=== PATIENT | female | born 1960 | race Caucasian/White ===

== ENCOUNTER → 2018-05-15 08:47 | Outpatient (CLI) | payer MEDICARE, SELFPAY ==
--- NOTE | 2018-05-15 08:58 | XR_ITS ---
XR chest 2V HISTORY: ITS.REASON: COPD WITH ACUTE LOWER RESPIRATORY INFECTION ORDERING PHYSICIAN: Yuki Wolf PATIENT AGE: 58 years COMPARISON: 03/28/2009 FINDINGS: The cardiomediastinal silhouette and pulmonary vascularity are within normal limits. The lungs are clear without infiltrates, suspicious nodules, or pleural effusions. Wedge compression changes are present involving T11 with endplate osteophytes. This was not present on previous study but has a chronic appearance. There is no fracture of the right humeral neck. IMPRESSION: No acute finding. T11 compression change age-indeterminate possibly old. Right humeral neck fracture
== END ==
PROVIDERS: PCP Nurse Practitioner Family; Referring Provider Nurse Practitioner Family; Visit Provider Nurse Practitioner Family
DX: J44.0 Chronic obstructive pulmonary disease with (acute) lower respiratory infection (principal)
CPT/HCPCS: 71046

== ENCOUNTER → 2018-05-24 13:39 | Outpatient (CLI) | payer MEDICARE, SELFPAY ==
[2018-05-24 14:35] VITALS: PULSE 100; PULSE 105
== END ==
PROVIDERS: Family Provider Family Medicine; PCP Nurse Practitioner Family; Visit Provider Nurse Practitioner Family
DX: J44.0 Chronic obstructive pulmonary disease with (acute) lower respiratory infection (principal)
CPT/HCPCS: 94060; 94640

== ENCOUNTER → 2018-06-23 13:27 | Outpatient (CLI) | payer MEDICARE, SELFPAY ==
--- NOTE | 2018-06-23 13:36 | CT_ITS ---
CT chest wo con HISTORY: ITS.REASON: SEVERE COPD,CHRONIC TYPE 1 RESPIRATORY FAILURE,TOBACCO USE ORDERING PHYSICIAN: Yuki Wolf PATIENT AGE: 58 years COMPARISON: None Technique: Axial images obtained with sagittal and coronal reformats. All CT scans at the facility use one or more dose reduction, viz: automated exposure control, ma/kV adjustment per patient size (including targeted exams where dose is matched to indication, i.e. head), or iterative reconstruction technique. FINDINGS: No mediastinal or hilar mass or adenopathy. There is a mildly prominent node in the left axilla 2.3 cm. Normal heart size. No evidence of pericardial effusion. 3 mm noncalcified nodule right upper lobe anterolaterally. 3 mm noncalcified nodule superior segment right lower lobe. There is mild diffuse bronchial thickening with hyperattenuation of the lungs consistent with obstructive chronic bronchitis. No suspicious nodules. No infiltrates or effusions. Upper abdominal images show diffuse fatty liver and left renal cyst measuring up to 5.6 cm. Multiple soft tissue nodular densities are present in the left upper quadrant posteriorly superior to the left kidney and in the expected location of the spleen. Has the patient had a prior splenectomy or splenic surgery. Please may represent multiple splenule. Please correlate with patient's surgical history. If there has not been prior spleen surgery then, a liver spleen scan may confirm that this is splenic tissue and not adenopathy. There is moderate wedging involving the T3 and T11 vertebral bodies which appear old. There is kyphosis at the T3 and T11 region. IMPRESSION: 1. COPD. 2. There are at least 2 small right-sided pulmonary nodules measuring 3 mm each. Twelve-month follow-up recommended 3. Multiple soft tissue densities in the left upper quadrant posteriorly which may represent splenules. Please correlate with patient's surgical history. Liver spleen scan with SPECT imaging may confirm the presence of splenic tissue as opposed to adenopathy 4. 2.3 cm left axillary lymph node
== END ==
PROVIDERS: Family Provider Family Medicine; PCP Nurse Practitioner Family; Visit Provider Nurse Practitioner Family
DX: J44.9 Chronic obstructive pulmonary disease, unspecified (principal); J96.11 Chronic respiratory failure with hypoxia; Z72.0 Tobacco use
CPT/HCPCS: 71250

== ENCOUNTER → 2018-07-21 08:47 | Outpatient (CLI) | payer MEDICARE, SELFPAY ==
--- NOTE | 2018-07-21 08:51 | US_ITS ---
US extremity LT limited HISTORY: ITS.REASON: AXILARY LYMPHADENOPATHY ORDERING PHYSICIAN: Yuki Wolf PATIENT AGE: 58 years COMPARISON: 06/23/2018 FINDINGS: A mildly enlarged lymph node in left axilla at 3.9 x 1.5 cm with a mostly fatty central hilum. There is some echogenicity of the cortex of the lymph node inferiorly at 9 mm another smaller node is present as well measuring 2 cm. No fluid collections apparent. IMPRESSION: Mild left axillary adenopathy
--- NOTE | 2018-07-21 09:02 | MM_ITS ---
MM Dig screening mamm BI w/CAD CAD Screening COMPARISON: Digital mammograms with CAD 03/13/2016 INDICATION: There is a history of breast cancer patient's 2 grandmothers TECHNIQUE: Standard CC and MLO images were obtained. R2 CAD reviewed. FINDINGS: The breasts are composed primarily of fat with minimal scattered fiber glandular densities throughout each breast. There are stable tiny benign-appearing nodular densities in each breast. There is no suspicious lesion and there are no suspicious microcalcifications. IMPRESSION: Stable exam no suspicious lesion seen BI-RADS Category: 2 Benign Finding(s) RECOMMENDED FOLLOW-UP: 1YR - 1 YEAR FOLLOW-UP (A letter has been sent to the patient regarding results of the study.)
== END ==
PROVIDERS: Family Provider Family Medicine; PCP Nurse Practitioner Family; Visit Provider Nurse Practitioner Family
DX: Z12.31 Encounter for screening mammogram for malignant neoplasm of breast (principal); R59.0 Localized enlarged lymph nodes
CPT/HCPCS: 76882; 77067

== ENCOUNTER → 2021-10-28 07:30 | Outpatient (CLI) | payer MEDICARE, SELFPAY ==
--- NOTE | 2021-10-28 07:30 | CT_ITS ---
PROCEDURE: CT LUNG SCREENING CLINICAL INDICATION: lung cancer screening COMPARISON: CT CHESTWO CT chest wo con from 06/23/2018 TECHNIQUE: The exam was performed on a GE Light Speed [address] scanner using 2.90 mGy CTDI. A low dose helical CT CHEST was performed on a multi-detector scanner. All CT scans at the facility use one or more dose reduction, viz: automated exposure control, ma/kV adjustment per patient size (including targeted exams where dose is matched to indication, i.e. head), or iterative reconstruction technique. The LDCT was performed in a facility that meets the criteria for the screening program. Data regarding this exam was submitted to ACR which is an approved registry. The order for this exam indicates that it came as a result of a lung cancer screening counseling shard decision-making visit that included all the elements required of such a visit including smoking cessation. The radiologist interpreting this exam meets the [facility] criteria for the LDCT lung cancer screening program. The exam is reported using the Lung-RADS classification scale and reported to the ACR registry. NOTE: This study was performed for the specific purposes of lung cancer screening and is not an alternative to diagnostic chest CT. RADIATION DOSE: CTDI vol(CT dose Index-volume) = 2.90mG DLP (Dose Length Product) = 84.91 mGcm FINDINGS: COPD changes stable small pulmonary nodules as previously described. No new suspicious nodules apparent. Scattered areas of scarring. OTHER FINDINGS: There is bilateral axillary adenopathy. The largest node is on the left measuring 3.3 x 2.2 cm. The nodes have increased in size compared to the previous exam. Numerous lobular soft tissue densities are present in the left upper quadrant as previously described possibly due to splenules. Wedge compression changes T11 and T3 unchanged. Sclerotic focus neck of the left glenoid IMPRESSION: Lung-RADS Category 2 Benign Appearance or Behavior Follow-up: Continue annual screening with LDCT in 12 months Worsening bilateral axillary adenopathy left greater than right. Numerous rounded opacities in the left upper quadrant possibly due to splenule is versus adenopathy. Dictated by: Oliverio Chaves MD 11/11/2021 10:30 Oliverio Chaves MD in [place] 11/11/2021 10:30
[2021-10-28 09:30] VITALS: PULSE 86; PULSE 90
== END ==
PROVIDERS: PCP Nurse Practitioner Family; Visit Provider Internal Medicine Pulmonary Disease
DX: Z87.891 Personal history of nicotine dependence (principal); Z12.2 Encounter for screening for malignant neoplasm of respiratory organs; R06.09 Other forms of dyspnea
CPT/HCPCS: 71271; 94060; 94618; 94640; 94727; 94729

== ENCOUNTER → 2022-01-07 13:42 | Outpatient (CLI) | payer MEDICARE, SELFPAY ==
--- NOTE | 2022-01-07 13:51 | US_ITS ---
PROCEDURE INFORMATION: Exam: US Left Breast, Complete US Right Breast, Complete MG Bilateral Diagnostic Breast Tomosynthesis Exam date and time: 01/07/2022 1:56 PM Age: 61 years old Clinical indication: Due for annual screening mammogram. Axillary Lymphadenopathy noted on recent CT chest TECHNIQUE: Imaging protocol: Complete ultrasound of all four quadrants of the Left breast and the retroareolar regions, including ultrasound of the axilla when performed. Complete ultrasound of all four quadrants of the Right breast and the retroareolar regions, including ultrasound of the axilla when performed. Bilateral Diagnostic tomosynthesis and 2D mammography including computer-aided detection (CAD) when performed. Unilateral or bilateral exam. COMPARISON: MG [facility] MM Dig screening mamm BI w/CAD 07/21/2018 9:23 AM FINDINGS: MAMMOGRAPHY: There are scattered areas of fibroglandular density. No new mass, architectural distortion, or suspicious calcifications have developed to suggest malignancy. Partially visualized dense right axillary lymph node measures 3 cm ULTRASOUND: Complete breast ultrasound was performed including all 4 quadrants, retroareolar breast and axilla bilaterally No suspicious solid or cystic mass is present. No benign-appearing solid or cystic mass is present. No architectural distortion or shadowing is present. Left axillary lymphadenopathy is present, with prominent cortex thickening and diminutive fatty jenna, the largest left axillary lymph node measuring 4.8 x 2 point 8 by 1.7 cm. Morphologically abnormal right axillary lymph node demonstrates a diminutive fatty hilum and thickened cortex. This measures 2.0 by 1.6 by 1.1 cm. IMPRESSION: No mammographic or sonographic evidence of breast malignancy. Recommend annual screening mammography unless otherwise clinically indicated. Bilateral axillary adenopathy, much larger on the left where a dominant pathologic appearing left lymph node measures up to 4.8 cm. Differential considerations primarily include systemic causes such as viral syndrome, connective tissue disorder, rheumatoid arthritis, sarcoidosis eccentric. Metastatic malignancy, or lymphoma/leukemia should also be considered. Careful clinical/laboratory correlation is required. If clinically warranted, ultrasound-guided biopsy of the left axillary lymph node should be considered for definitive characterization. ASSESSMENT: BI-RADS category 2: Benign
== END ==
PROVIDERS: PCP Nurse Practitioner Family; Visit Provider Nurse Practitioner Family
DX: R59.0 Localized enlarged lymph nodes (principal); R92.8 Other abnormal and inconclusive findings on diagnostic imaging of breast
CPT/HCPCS: 76641; 77062; 77066; G0279

== ENCOUNTER 2022-08-15 09:13 | Emergency (ER) | payer MEDICARE, SELFPAY ==
--- NOTE | 2022-08-15 09:42 | EXP.UTC ---
Discharge Plan Disposition Patient Disposition: Home, Self-Care Condition: Good Prescriptions Prescriptions: No Action albuterol sulfate 90 mcg/actuation HFA aerosol inhaler 1 inh INHALATION Q6H PRN (Reason: shortness of breath or wheezing) 90 Days Qty: 8.5 3RF ipratropium-albuterol 0.5 mg-3 mg(2.5 mg base)/3 mL solution for nebulization 3 ml INHALATION Q6H PRN (Reason: shortness of breath or wheezing) Qty: 90 6RF Trelegy Ellipta 100-62.5-25 mcg blister with device 1 inh INHALATION DAILY 90 Days Qty: 90 3RF Referrals Follow up/Referrals: Yuki Wolf APRN [Primary Care Provider] - See instructions Activity Restrictions/Add. Instructions Additional Instructions/Restrictions: *Monitor Temp, Over the counter Motrin or Tylenol as directed/as needed Tylenol every 4 hours and Motrin every 6 hours (as long as your family doctor has told you that you can take it) for fever or pain. and straight to ER if unable to lower temp less than 101.0 after medication given *Warm salt water gargles may help to soothe the throat *Throat Lozenges? *Warm fluids like tea with honey may help to soothe the throat? *Sleep elevated *Humidifier/Vaporizer Follow up IMMEDIATELY for new or worsening symptoms or no Noticeable improvement over the next 48-72 hours. 911 for difficulty breathing or swallowing You were tested for today for COVID19 your test result should be back in the next 24-48 hours, you may check your results on the [facility] My Health Portal Make sure to take your Vitamins Vit. C Vit D and Zinc if you can take them Clinical Impressions Clinical Impression: Exposure to COVID-19 virus Stand Alone Forms Stand Alone Forms: Work/School Release Instructions Patient Instructions: Coronavirus Disease 2019, Preventing the Spread of Coronavirus Discharge Instructions Discharge ED Provider: Myriam Quijano [facility] HPI General Stated complaint: covid exposure, congestion Time Seen by Provider: 08/15/22 09:56 History of Present Illness Provider Complaint: Patient states that she was around a family member that had a positive home test earlier this morning so she came in to get tested States that she is having a little runny nose and cough but nothing else Related Data Previous Rx's Medication Instructions Recorded albuterol sulfate 90 mcg/actuation 1 inh inhalation Q6H PRN shortness 09/17/21 aerosol inhaler of breath or wheezing 90 days #8.5 grams fluticasone fur. 100 mcg-umeclid 1 inh inhalation DAILY 90 days #90 09/17/21 62.5 mcg-vilant 25 mcg ea inhalat.powder (Trelegy Ellipta) ipratropium 0.5 mg-albuterol 3 mg 3 ml inhalation Q6H PRN shortness 09/17/21 (2.5 mg base)/3 mL nebulization of breath or wheezing #90 mL soln Allergies Allergy/AdvReac Type Severity Reaction Status Date / Time No Known Allergies Allergy Verified 09/17/21 14:23 [facility] Social History Smoking Status: Current every day smoker alcohol intake: current current occupational status: disabled Travel in the last 8 weeks: None ROS Obtained: Yes All systems reviewed & no additional complaints except as documented and Yes Systems reviewed as appropriate & no additional complaints except as documented Constitutional Constitutional: Reports system reviewed and no additional complaints, except as documented, Reports as per HPI and Reports body ache ENT Ears, Nose, Mouth, and Throat: Reports system reviewed and no additional complaints, except as documented, Reports as per HPI, Reports nasal congestion and Reports nasal discharge Cardiovascular Cardiovascular: Reports system reviewed and no additional complaints, except as documented and Reports as per HPI Respiratory Respiratory: Reports system reviewed and no additional complaints, except as documented and Reports as per HPI Physical Exam General General appearance: alert and in no apparent distress Expanded ENT Exam Nose exam: Absent sinus tenderne
[2022-08-15 09:47] VITALS: BP 134/89; PULSE 77; RESP 22; TEMP 36.7; O2SAT 98; BMI 41.8
[2022-08-15 10:10] VITALS: BP 134/89; PULSE 77; RESP 22; TEMP 36.7; O2SAT 98
== END 2022-08-15 10:11 | disposition home or self-care (01) ==
PROVIDERS: Emergency Provider Nurse Practitioner; PCP Nurse Practitioner Family
DX: R06.02 Shortness of breath (principal); R09.89 Other specified symptoms and signs involving the circulatory and respiratory systems; R05.9 Cough, unspecified; M79.10 Myalgia, unspecified site; F17.210 Nicotine dependence, cigarettes, uncomplicated; Z20.822 Contact with and (suspected) exposure to COVID-19; Z79.51 Long term (current) use of inhaled steroids
CPT/HCPCS: 99213; C9803; G0463; U0003; U0005

== ENCOUNTER 2024-07-21 14:42 | Outpatient (CLI) | payer MEDICARE, SELFPAY ==
--- NOTE | 2024-07-21 14:46 | MM_ITS ---
PROCEDURE INFORMATION: Exam: MG Bilateral Screening 3D Mammography Exam date and time: 07/21/2024 2:40 PM Age: 64 years old Clinical indication: Screening examination TECHNIQUE: Imaging protocol: Bilateral Screening tomosynthesis and 2D mammography including computer-aided detection (CAD) when performed. COMPARISON: 1. MG MM DIG MAMM BI DX W/CAD 01/07/2022 1:54 PM 2. MG [facility] MM Dig screening mamm BI w/CAD 07/21/2018 9:23 AM FINDINGS: MAMMOGRAPHY: Breast composition: There are scattered areas of fibroglandular density. Mass: None. Architectural distortion: None. Calcifications: No suspicious calcifications. Asymmetric density: None. Skin thickening: None. Axillary adenopathy: None. IMPRESSION: No mammographic evidence of malignancy. Annual screening is recommended unless otherwise clinically indicated. ASSESSMENT: BI-RADS Category 1: Negative.
== END 2024-07-21 23:59 | disposition home or self-care (01) ==
LOC: RAD 14:42
PROVIDERS: PCP Nurse Practitioner; Visit Provider Nurse Practitioner
DX: Z12.31 Encounter for screening mammogram for malignant neoplasm of breast (principal)
CPT/HCPCS: 77063; 77067

== ENCOUNTER 2024-08-30 06:54 | Inpatient (IN) | payer MEDICARE, SELFPAY ==
[2024-08-30] VITALS (38 sets, daily range): BP systolic 62–185; BP diastolic 37–96; PULSE 62–105; RESP 18–36; TEMP 35.8–37; O2SAT 82–99; BMI 48.8
[2024-08-30] MEDS: IPRATROPIUM/ALBUTEROL 3 ML NEB IH ×4 (07:05→21:58)
--- NOTE | 2024-08-30 07:07 | XR_ITS ---
FINAL REPORT CLINICAL HISTORY: dyspnea FINDINGS: A single view of the chest was obtained. The cardiac silhouette is moderately enlarged. The mediastinum is unremarkable. There is airspace opacity in the right perihilar region which may represent edema or pneumonia. There is no pneumothorax. There is no acute osseous abnormality. IMPRESSION: Airspace opacity in the right perihilar region may represent edema or pneumonia. Follow-up PA and lateral chest x-ray is recommended for further evaluation. Reviewed, Interpreted and Dictated by Jluis Alcantara MD Transcribed by Alaina Hatfield Authenticated and [facility]
--- NOTE | 2024-08-30 07:09 | PC.NURSE ---
pt placed on BIPAP; family at BS
[2024-08-30] MEDS: MAGNESIUM SULFATE IN WATER 2 GM/50 ML PIGGYBACK IV (07:10)
--- NOTE | 2024-08-30 07:10 | ED_ITS ---
Discharge Plan Disposition Chief Complaint: Shortness of Breath/Dyspnea Prescriptions Prescriptions: No Action albuterol sulfate 90 mcg/actuation HFA aerosol inhaler 1 inh INHALATION Q6H PRN (Reason: shortness of breath or wheezing) 90 Days Qty: 8.5 3RF ipratropium-albuterol 0.5 mg-3 mg(2.5 mg base)/3 mL solution for nebulization 3 ml INHALATION Q6H PRN (Reason: shortness of breath or wheezing) Qty: 90 6RF Trelegy Ellipta 100-62.5-25 mcg blister with device 1 inh INHALATION DAILY 90 Days Qty: 90 3RF Referrals Follow up/Referrals: Provider,Referral, MD [Referring] - See instructions Clinical Impressions Clinical Impression: Acute exacerbation of chronic obstructive airways disease, Acute hypoxic respiratory failure, Acute respiratory distress Print Language Print Language: Danish Discharge ED Provider: Sowmya Layton General Adult HPI General Chief complaint: Shortness of Breath/Dyspnea Stated complaint: soa Time Seen by Provider: 08/30/24 07:07 Mode of Arrival: Wheelchair Source of Information: Patient and Relative Limitations: No Limitations Description of Symptoms (Recalled from ER Triage Doc. by RN): pt daughter reports that she told her she wasnt feeling last night and this morning she texted her saying that she needed to go to the hospital she couldnt breath . pt reports no recent illness History of Present Illness HPI narrative: Patient is a 64-year-old female brought in today by her daughter with severe respiratory distress. She is in significant distress and history is limited given her clinical status. Her daughter states that she has severe COPD and that her mother called her stated she was having difficulty breathing over the last 24 hours. The patient denies any fevers or chills or any other chest pain or other symptoms. Otherwise history is unable to be obtained. Related Data Previous Rx's ?Medication ?Instructions ?Recorded albuterol sulfate 90 mcg/actuation 1 inh inhalation Q6H PRN shortness 09/17/21 aerosol inhaler of breath or wheezing 90 days #8.5 grams fluticasone fur. 100 mcg-umeclid 1 inh inhalation DAILY 90 days #90 09/17/21 62.5 mcg-vilant 25 mcg ea inhalat.powder (Trelegy Ellipta) ipratropium 0.5 mg-albuterol 3 mg 3 ml inhalation Q6H PRN shortness 09/17/21 (2.5 mg base)/3 mL nebulization of breath or wheezing #90 mL soln Allergies Allergy/AdvReac Type Severity Reaction Status Date / Time No Known Allergies Allergy Verified 09/17/21 14:23 [facility] Disclaimer: The information contained in this section may have been updated after the patient was seen, as this information can be updated by other users. Social History Smoking Status: Current every day smoker alcohol intake: current alcohol intake frequency: 0-2 drinks per day current occupational status: disabled Travel in the last 8 weeks: None Other Medical History Have you received the Pneumonia Vaccine: No ROS Obtained: Yes All systems reviewed & no additional complaints except as documented Physical Exam General General appearance: other (Patient is cyanotic and respiratory distress breathing rapidly with prolonged expiratory phases oxygen saturations with a poor waveform are in the 60s) Respiratory Respiratory exam: Present other (Respiratory distress as above only speaking in single word sentences diminished and prolonged expiratory phase but shallow respirations) Cardiovascular Cardiovascular exam: Present regular rate Neurological Exam Neurological exam: Present alert and other (Nonfocal answering questions appropriately) Medical Decision Making Medical Records Screening: Per USPSTF and CDC recommendations, given the prevalence of disease in our region, it is our hospital?s policy to screen for HIV and viral Hepatitis for all patients aged 18 and over and those with ongoing risk factors. Jordy Inquiry Pt receiving controlled substance: No Vital Signs: 08/30/24 06:55 Temperature 98.4 F Temperature Source Tympanic Pulse Rate [Right] 105 H Respiratory Rate 36 H Blood Pressure [Right Arm] 148/61 H Blood Pressure Mean [Right Arm] 90 02 Sat by Pulse Oximetry 82 L Oxygen Delivery Method Room Air Nasal Cannula Lab Data Lab results reviewed: Yes I reviewed the patient's lab results. Lab Results 08/30/24 07:07: WBC 7.9, RBC 5.01, Hgb 15.1, Hct 49.3 H, MCV 98.4, MCH 30.1, M CHC 30.6 L, RDW 14.2, Plt Count 270, MPV 8.4, Neut % (Auto) 75.1, Lymph % (Auto) 17.9, [place] % (Auto) 5.9, Eos % (Auto) 0.4, Baso % (Auto) 0.7, Neut # (Auto) 6.0, Lymph # (Auto) 1.4, [place] # (Auto) 0.5, Eos # (Auto) 0.0, Baso # (Auto) 0.1, Sodium 136, Potassium 5.2 H, Chloride 96 L, Carbon Dioxide 38 H, Anion Gap 7.2, BUN 15, Creatinine 0.90, Estimated Creat Clear 42, Estimated GFR 63, Est GFR ( Amer) 77, Glucose 154 H, Calcium 9.0, Total Bilirubin 0.4, AST 98 H, A LT 100 H, Alkaline Phosphatase 192 H, Troponin I 0.02, NT-Pro-B Natriuret Pep 2710 H, Total Protein 7.9, Albumin 4.3, Globulin 3.6 H, Albumin/Globulin Ratio 1.2 08/30/24 07:08: Specimen Source Left radial, O2 % 100%, ABG pH 7.17 L*, ABG pCO2 84.0 H, ABG pO2 83.6, ABG HCO3 30.1 H, ABG Total CO2 32.7 H, ABG O2 Saturation 95, ABG Base Excess 1.6, Oliverio Test Acceptable 08/30/24 07:07 08/30/24 07:07 Orders (Tests/Meds): ED MEDICATIONS Discontinued Medications Generic Name Dose Route Start Last Admin Trade Name Freq PRN Reason Stop Dose Admin Albuterol/Ipratropium 3 ml 08/30/24 07:07 08/30/24 07:05 Ipratropium/Albuterol 3 Ml Neb IH 08/30/24 07:08 3 ml ONCE ONE Administration Magnesium Sulfate 2 gm in 50 mls @ 50 mls/hr 08/30/24 07:06 08/30/24 07:10 Magnesium Sulfate 2gm/50ml Premix IV 08/30/24 08:05 50 mls/hr ONCE ONE Administration Magnesium Sulfate 2 gm in 50 mls @ 50 mls/hr 08/30/24 07:07 08/30/24 07:15 Magnesium Sulfate 2gm/50ml Premix IV 08/30/24 08:06 Not Given ONCE ONE Ceftriaxone Sodium 1 gm/ 50 mls @ 100 mls/hr 08/30/24 07:34 Sodium Chloride IV 08/30/24 08:03 ONCE ONE Azithromycin 500 mg/ Sodium 250 mls @ 250 mls/hr 08/30/24 07:34 Chloride IV 08/30/24 07:35 ONCE ONE Methylprednisolone Sodium Succinate 125 mg 08/30/24 07:07 08/30/24 07:11 Methylprednisolone Sod Succ 125mg Vial IV 08/30/24 07:08 125 mg ONCE ONE Administration Methylprednisolone Sodium Succinate 125 mg 08/30/24 07:07 08/30/24 07:15 Methylprednisolone Sod Succ 125mg Vial IV 08/30/24 07:08 Not Given ONCE ONE ORDERS Category Date Time Status CXR --portable [XR chest portable] Stat Exams 08/30/24 07:07 Taken BNP [NT Pro Brain Natriuretic Pep.] Stat Lab 08/30/24 07:07 Completed CBC w/Auto Diff [Complete Blood Count Auto Diff] Stat Lab 08/30/24 07:07 Completed CMP [Comprehensive Metabolic Panel] Stat Lab 08/30/24 07:07 Completed HIV (1&2) Antibody Rapid Stat Lab 08/30/24 07:07 Received Hep C Ab with Reflex to RNA Stat Lab 08/30/24 07:06 Received Rapid PCR Covid and Flu A/B Stat Lab 08/30/24 07:07 Ordered Trop I [Troponin I] Stat Lab 08/30/24 07:07 Completed Troponin I Q3H Lab 08/30/24 10:15 Ordered Troponin I Q3H Lab 08/30/24 13:15 Ordered Blood Culture Stat Micro 08/30/24 07:40 Ordered ABG [Arterial Blood Gas] Stat RT 08/30/24 07:08 Completed Lactate Arterial Stat RT 08/30/24 07:08 Ordered Medical Decision Narrative: 64-year-old with what appears to be a severe COPD exacerbation hypoxic respiratory failure and respiratory distress. She has significant increased work of breathing with shallow respirations and appears to be very tight Solu- Medrol magnesium continuous albuterol nebs and BiPAP have been initiated. Arterial blood gas has been drawn. Will obtain a chest x-ray and work her up further. At the moment she is near the point of needing to be intubated and will keep a close eye on her from a critical care standpoint. Chest x-ray performed which I personally interpreted which is a poor inspiratory film however that her right middle and right lower lobe infiltrates cannot rule out pneumonia and we will go ahead and treat for this and give IV Rocephin and azithromycin. On reassessment at 8:10 AM patient has significantly improved her work of breathing is much improved and she is pulling normal lung volumes at this point her respiratory rate is now down into the low 20s it was in the upper 30s to 40s when she first got here. Will keep her on the BiPAP for now but she likely will be able to come off within the next few hours. Mental status is still good. She and her daughter who are at the bedside understand that she needs to be admitted for further evaluation and management given the severity of this illness. Oxygenation has improved as well. I spoke with hospital medicine physician who agreed to accept the patient and evaluate and manage the patient further for this condition. Critical Care Critical Care Time Critical Care Time: Yes Attestation: On 08/30/24, the high probability of a clinically significant, sudden or life threatening deterioration of the following system(s) required my full and direct attention, intervention and personal management. The time I documented below is in addition to time spent performing reported procedures but includes the following listed in this critical care notation. Total Time Total Critical Care Time: 65
--- NOTE | 2024-08-30 07:10 | PC.NURSE ---
labs collected by Rhys Calle RN and sent to lab
[2024-08-30] MEDS: METHYLPREDNISOLONE SOD SUCC 125MG VIAL 125 MG IV (07:11)
--- NOTE | 2024-08-30 07:15 | PC.NURSE ---
portable xray at
[2024-08-30 07:19] LABS: Basophils # 0.1 K/mm3 (0-0.2); Basophils % 0.7 % (0.1-2.0); Eosinophils % 0.4 % (0.1-12.0); Hematocrit 49.3 % (37.0-47.0); Hemoglobin 15.1 g/dL (12.2-16.2); Lymphocytes # 1.4 K/mm3 (0.7-4.5); Lymphocytes % 17.9 % (10-50); Mean Corpuscular HGB Conc 30.6 g/dL (31.8-35.4); Mean Corpuscular Hemoglobin 30.1 pg (27.0-31.2); Mean Corpuscular Volume 98.4 fl (81-99); Mean Platelet Volume 8.4 fl (7.4-10.4); Monocytes # 0.5 K/mm3 (0.1-1.0); Monocytes % 5.9 % (1.7-9.3); Neutrophils % 75.1 % (37.0-80.0); Platelet Count 270 K/mm3 (142-424); Red Blood Count 5.01 M/mm3 (4.20-5.40); Red Cell Distribution Width 14.2 % (11.5-17.5); White Blood Count 7.9 K/mm3 (4.8-10.8)
[2024-08-30 07:20] LABS: Albumin Level 4.3 g/dl (3.5-5.0); Chloride 96 mmol/L (98-107); Potassium 5.2 mmoL/L (3.5-5.1); Sodium 136 mmol/L (136-145)
--- NOTE | 2024-08-30 07:20 | ECG_ITS ---
APPROVED REPORT Exam: Resting ECG HR:96 bpm ECG Measurements Heart Rate 96 AXES VA 149 P 65 QRSd 98 QRS -25 QT 343 T 43 QTc 397 Conclusion SINUS RHYTHM BORDERLINE LEFT AXIS DEVIATION [QRS AXIS < -20] BORDERLINE ECG UNCONFIRMED REPORT Electronically signed by : Nico Layton, 08/30/2024 14:53:23
[2024-08-30 07:21] LABS: ABG Base Excess 1.6 mmol/L (-2.4-2.3); ABG HCO3 30.1 mmhg (22.0-26.0); ABG Oxygen Saturation 95 % (90-100); ABG PO2 83.6 mmhg (80-100); ABG TCO2 32.7 mmhg (23-27)
[2024-08-30 07:23] LABS: Alanine Aminotransferase 100 U/L (12-78); Albumin/Globulin Ratio 1.2 (1.1-1.8); Alkaline Phosphatase 192 U/L (38-126); Anion Gap 7.2 mEq/L (5-15); Aspartate Amino Transferase 98 U/L (14-36); Bilirubin,Total 0.4 mg/dl (0.2-1.3); Blood Urea Nitrogen 15 mg/dl (7-17); Carbon Dioxide 38 mmol/L (22.0-30.0); Creatinine Clearance Estimated 42 mL/min (50-200); Estimated Glomerular Filt Rate 63 ml/min (>60); GFR (African American) 77 ML/MIN (>60); Globulin 3.6 g/dL (1.3-3.2); Glucose 154 mg/dl (74-100); Total Protein,Serum 7.9 g/dl (6.3-8.2)
[2024-08-30 07:32] LABS: NT Pro Brain Natriuretic Pep. 2710 pg/mL (0-125)
[2024-08-30 07:35] LABS: Troponin I 0.02 ng/ml (0.00-0.034)
[2024-08-30 07:43] LABS: Allen's Test Acceptable; Oxygen 100% %; Source Left Radial
[2024-08-30 07:44] LABS: ABG PH 7.17 mmol/L (7.35-7.45)
[2024-08-30] MEDS: ALBUTEROL 0.083% 2.5 MG/3 ML NEB 20 MG IH (07:45)
--- NOTE | 2024-08-30 08:17 | PC.WOUNDNOTE ---
Dr. Layton s/w hospitalist for admission
--- NOTE | 2024-08-30 08:17 | PC.NURSE ---
Called house for admission
[2024-08-30] MEDS: CEFTRIAXONE SODIUM 1 GM in 0.9 % SODIUM CHLORIDE 50 ML IV (08:20)
[2024-08-30 08:26] LABS: Coronavirus 19, PCR Not Detected (NotDetected); Influenza A, PCR Not Detected (NotDetected); Influenza B, PCR Not Detected (NotDetected)
--- NOTE | 2024-08-30 08:27 | PC.NURSE ---
supervisor production managing called to notify ER that this pt's admission to Med/Surg will be delayed d/t re-arranging SD room on med/surg floor. Pt will go to [id number] and once the room is cleaned they will notify us.
--- NOTE | 2024-08-30 08:30 | HMH.PHAINT1 ---
Pharmacy Intervention Comments: MEDICATION RECONCILIATION COMPLETED ON PATIENT USING EXTERNAL FILL HISTORY FROM PHARMACY. -SYLVAIN PEREZ, IVAD
[2024-08-30] MEDS: AZITHROMYCIN 500 MG in 0.9 % SODIUM CHLORIDE 250 ML 250 MG IV (08:43)
[2024-08-30 09:20] LABS: Lactate Venous 0.9 mmol/L (0.4-2.0); VBG Base Excess 4.2 mmol/L (-2.4-2.3); VBG HCO3 33.5 mmol/L (23-30); VBG Oxygen Saturation 96.1 % (50-70); VBG PO2 95.3 mmol/L (28-40); VBG Total CO2 36.7 mmol/L (23-27)
[2024-08-30 09:23] LABS: VBG PCO2 104.6 mmol/L (35-51); VBG PH 7.12 mmol/L (7.31-7.41)
--- NOTE | 2024-08-30 09:47 | PC.NURSE ---
Dr. Layton speaking with Dr. Rea and Anesthesia at
--- NOTE | 2024-08-30 10:00 | PC.NURSE ---
Dr. Canales and Dr Layton at bedside
--- NOTE | 2024-08-30 10:21 | PC.NURSE ---
Gave report to Uma PHOENIX on Med/Surg floor
[2024-08-30 10:29] LABS: Troponin I 0.02 ng/ml (0.00-0.034)
[2024-08-30 10:42] LABS: ABG Base Excess 8.3 mmol/L (-2.4-2.3); ABG HCO3 37.8 mmhg (22.0-26.0); ABG Oxygen Saturation 99 % (90-100); ABG PO2 191.2 mmhg (80-100); ABG TCO2 41.5 mmhg (23-27); Lactate Arterial 0.9 mmol/L (0.4-2.0)
[2024-08-30 10:43] LABS: Allen's Test aceptable; Oxygen 70 %; Tidal Volume 30/12; Vent Rate 24
[2024-08-30 10:44] LABS: ABG PCO2 121.7 mmhg (35.0-45.0); ABG PH 7.11 mmol/L (7.35-7.45)
[2024-08-30 11:18] LABS: HIV (1&2) Antibody Rapid NONREACTIVE (NONREACTIVE)
--- NOTE | 2024-08-30 12:09 | XR_ITS ---
FINAL REPORT CLINICAL HISTORY: post intubation NGT placement confirmation COMPARISON: 5 hours prior FINDINGS: A single view of the chest was obtained. There is mild cardiomegaly. The lungs are underinflated. There is no acute infiltrate. There is no pleural effusion or pneumothorax. The NG tube tip lies off the inferior margin of the film. IMPRESSION: No definite acute infiltrate. NG tube tip lies off the inferior margin of the film. Reviewed, Interpreted and Dictated by Jluis Alcantara MD Transcribed by Alaina Hatfield Authenticated and [facility]
[2024-08-30] MEDS: propofoL 100 ML 3.4 MG IV (12:20)
--- NOTE | 2024-08-30 12:31 | PC.NURSE ---
arrived by stretcher from ED
[2024-08-30] MEDS: KETAMINE 50MG/1ML SYRINGE 200 MG IV (12:35)
[2024-08-30] MEDS: SODIUM BICARB 8.4% 50ML SYRINGE (CRASH CART) 100 MEQ IV (12:36)
[2024-08-30] MEDS: SUCCINYLCHOLINE 20MG/ML 10 ML MDV 100 MG IV (12:52)
[2024-08-30] MEDS: FENTANYL CITRATE/PF 1,000 MCG in 0.9 % SODIUM CHLORIDE 80 ML 1.25 MCG IV (13:01)
--- NOTE | 2024-08-30 13:17 | PC.NURSE ---
Late Entry from bedside procedure: 1124- Dr. Canales, OR staff, RT, and FOREST FIRE EQUIPMENT OPERATOR's at bedside for sedation intubation. Pt is being bagged in preparation of fiberoptic LMA oral-tracheal intubation. 1125- Ketamine 100mg IVP Bicarb 1 amp IVP. VS: HR 100, RR25, BP 157/95, sat 98% on 100% fio2 1126- Dr. Canales starting Bronch, staff midwife/apprenticeship director attempting 2nd IV 1127- VS: HR 99, 93%, RR 18, BP 170/101 1129- Dr. Canales re-attempting Bronch/LMA 1131- VS: HR 91, Sat 91%- ambubag, RR 19 1132- VS: HR 105, sat 96% ambubag 1135- Glydo scope attempted by Dr. Canales. VS: HR 101, sat 97% ambubag, RR 22 1136- Ketamine 100 mg IVP 1137- Bicab 1 AMP, VS: BP 173/80, 94% ambubag, HR 97, RR 25 1141- Bronch resumed by Dr. Canales 1145- VS: HR 104, sat 95% ambubag, RR 23 1149- Bronch resumed by Dr. Canales. sat 99%, HR 95, BP 184/92 1151- sat 97% ambubag, 1% Lidocaine via ET tube 1153- VS: sat 92%, HR 101, RR 28, BP 188/106 1158- Succinate 100mg IVP. Bronch resumed by Dr. Canales 1200- Color change noted. ETT 7.0 ( 24cm @ teeth) 1205- 16fr NGT placed to Left Nare, 65 cm. 1206- radio television technical director at bedside for portable confirmation xray 1210- Preparing pt to go to 2nd floor 1225- This RN, 2x RT, and Med/director franchise sales's escorted pt to med/surg #[id number]
[2024-08-30] MEDS: NOREPINEPHRINE BITARTRATE/D5W 8 MG/250 ML PLAST..BAG 15 MG IV (13:27)
--- NOTE | 2024-08-30 13:31 | P.CONS_ITS ---
History of Present Illness History of present illness: Patient altered. Much of the history is obtained from chart review. Ms. Goodwin is a 64-year-old female greater than [id number] smoking history, severe COPD on triple inhaler therapy presented to the ER with worsening respiratory's needing noninvasive ventilator therapy and pulmonary was called for further evaluation and management. [facility] Disclaimer: The information contained in this section may have been updated after the patient was seen, as this information can be updated by other users. Medical History (Updated 08/30/24 @ 13:37 by Dmitry Canales MD) Glottic edema Difficult airway for intubation COPD exacerbation Pneumonia Acute hypercapnic respiratory failure Social History Smoking Status: Current every day smoker alcohol intake: current alcohol intake frequency: 0-2 drinks per day current occupational status: disabled Travel in the last 8 weeks: None Review of Systems Review of Systems Review of systems:: unable to obtain Review of systems (narrative): Altered not responding to verbal commands Pulmonology Exam Inpatient Vital signs and Labs for Last 24 Hours: Temp Pulse Resp BP Pulse Ox O2 Del Method FiO2 98.6 F 98 H 20 109/90 L 98 BiPAP 80 08/30/24 10:21 08/30/24 10:30 08/30/24 10:30 08/30/24 10:30 08/30/24 10:30 08/30/24 10:30 08/30/24 08:00 Laboratory Results - last 24 hr 08/30/24 07:07: WBC 7.9, RBC 5.01, Hgb 15.1, Hct 49.3 H, MCV 98.4, MCH 30.1, M CHC 30.6 L, RDW 14.2, Plt Count 270, MPV 8.4, Neut % (Auto) 75.1, Lymph % (Auto) 17.9, [place] % (Auto) 5.9, Eos % (Auto) 0.4, Baso % (Auto) 0.7, Neut # (Auto) 6.0, Lymph # (Auto) 1.4, [place] # (Auto) 0.5, Eos # (Auto) 0.0, Baso # (Auto) 0.1, Sodium 136, Potassium 5.2 H, Chloride 96 L, Carbon Dioxide 38 H, Anion Gap 7.2, BUN 15, Creatinine 0.90, Estimated Creat Clear 42, Estimated GFR 63, Est GFR ( Amer) 77, Glucose 154 H, Calcium 9.0, Total Bilirubin 0.4, AST 98 H, A LT 100 H, Alkaline Phosphatase 192 H, Troponin I 0.02, NT-Pro-B Natriuret Pep 2710 H, Total Protein 7.9, Albumin 4.3, Globulin 3.6 H, Albumin/Globulin Ratio 1.2, HIV 1&2 Antibody Rapid Nonreactive 08/30/24 07:08: Specimen Source Left radial, O2 % 100%, ABG pH 7.17 L*, ABG pCO2 84.0 H, ABG pO2 83.6, ABG HCO3 30.1 H, ABG Total CO2 32.7 H, ABG O2 Saturation 95, ABG Base Excess 1.6, Oliverio Test Acceptable 08/30/24 08:21: SARS-CoV-2 (PCR) Not detected, Influenza A Untype (PCR) Not detected, Influenza Type B (PCR) Not detected 08/30/24 09:16: VBG pH 7.12 L, VBG pCO2 104.6 H, VBG pO2 95.3 H, VBG HCO3 33.5 H , VBG Total CO2 36.7 H, VBG O2 Saturation 96.1 H, VBG Base Excess 4.2 H, VBG Lactic Acid 0.9 08/30/24 10:00: Troponin I 0.02 08/30/24 10:39: Specimen Source l radial, O2 % 70, ABG pH 7.11 L*, ABG pCO2 121.7 H, ABG pO2 191.2 H, ABG HCO3 37.8 H, ABG Total CO2 41.5 H, ABG O2 Saturation 99, ABG Base Excess 8.3 H, Oliverio Test aceptable, ABG Lactate 0.9, Vent Rate 24, Tidal Volume 30/12 I & O for Labs for Last 24 Hours: Intake & Output 08/27/24 08/28/24 08/29/24 08/30/24 23:59 23:59 23:59 23:59 Intake Total 0.850 / 0.850 Balance 0.850 / 0.850 Weight 250 lb Constitutional: Present severe distress Comment:: Intubated and Sedated Head: Present normocephalic and atraumatic Neck: Present normal inspection and trachea midline Respiratory: Present patient mechanically ventilated, prolonged expiratory phase, respiratory distress, rhonchi, wheezes and diminished air movement Cardiac: Present S1/S2 and Tachycardia GI: Present soft and distention; Absent tenderness Comments:: Abdominal scars noted Skin: Present intact; Absent cyanosis Neuro: Absent alert, awake or oriented x 3 Comment:: Intubated and sedated Extremities: Present normal inspection; Absent clubbing or cyanosis Psychiatric: Present unable to assess Meds Home Medications and Allergies Home Medications ?Medication ?Instructions ?Recorded ?Confirmed ?Type albuterol sulfate 90 mcg/actuation 1 inh inhalation Q4HP PRN 08/30/24 08/30/24 History aerosol inhaler shortness of breath or wheezing ipratropium 0.5 mg-albuterol 3 mg 3 ml inhalation Q6H 08/30/24 08/30/24 History (2.5 mg base)/3 mL nebulization soln New Prescriptions to Start Prescriptions: Allergies Allergy/AdvReac Type Severity Reaction Status Date / Time No Known Allergies Allergy Verified 09/17/21 14:23 Results Laboratory Findings 08/30/24 07:07 08/30/24 07:07 ABG ABG pH 7.11 mmol/L (7.35-7.45) L* 08/30/24 10:39 ABG pCO2 121.7 mmhg (35.0-45.0) H 08/30/24 10:39 ABG pO2 191.2 mmhg (80-100) H 08/30/24 10:39 ABG O2 Saturation 99 % (90-100) 08/30/24 10:39 Abnormal lab findings: Abnormal Labs 08/30/24 08/30/24 08/30/24 07:07 07:08 09:16 Hct 49.3 H MCHC 30.6 L ABG pH 7.17 L* ABG pCO2 84.0 H ABG pO2 ABG HCO3 30.1 H ABG Total CO2 32.7 H ABG Base Excess VBG pH 7.12 L VBG pCO2 104.6 H VBG pO2 95.3 H VBG HCO3 33.5 H VBG Total CO2 36.7 H VBG O2 Saturation 96.1 H VBG Base Excess 4.2 H Potassium 5.2 H Chloride 96 L Carbon Dioxide 38 H Glucose 154 H AST 98 H ALT 100 H Alkaline Phosphatase 192 H NT-Pro-B Natriuret Pep 2710 H Globulin 3.6 H 08/30/24 10:39 Hct MCHC ABG pH 7.11 L* ABG pCO2 121.7 H ABG pO2 191.2 H ABG HCO3 37.8 H ABG Total CO2 41.5 H ABG Base Excess 8.3 H VBG pH VBG pCO2 VBG pO2 VBG HCO3 VBG Total CO2 VBG O2 Saturation VBG Base Excess Potassium Chloride Carbon Dioxide Glucose AST ALT Alkaline Phosphatase NT-Pro-B Natriuret Pep Globulin Assessment and Plan *Assessment and plan (1) Acute hypercapnic respiratory failure: Status: Acute Category: Medical Code(s): J96.02 - Acute respiratory failure with hypercapnia (2) Pneumonia: Status: Acute Category: Medical Code(s): J18.9 - Pneumonia, unspecified organism (3) COPD exacerbation: Status: Acute Category: Medical Code(s): J44.1 - Chronic obstructive pulmonary disease with (acute) exacerbation (4) Difficult airway for intubation: Status: Acute Category: Medical Code(s): T88.4XXA - Failed or difficult intubation, initial encounter (5) Glottic edema: Status: Acute Category: Medical Code(s): J38.4 - Edema of larynx Plan Patient altered. Much of the history is obtained from chart review. Ms. Goodwin is a 64-year-old female greater than 35-tpth-yocc smoking history, severe COPD on triple inhaler therapy presented to the ER with worsening respiratory's needing noninvasive ventilator therapy and pulmonary was called for further evaluation and management. Difficulty ventilating this patient despite changing her settings and BiPAP with worsening hypercarbic respiratory failure eventually needing intubation and mechanical ventilatory support. Patient is a very difficult airway. Severe vocal cord on glottic edema noted. No concerning subglottic stenosis appreciated. Afebrile. Hemodynamically stable. No evidence of leukocytosis. Chest x-ray upon admission questionable right lower lobe infiltrate. Plan: Continue Analgo sedation with propofol and fentanyl. Light sedation. Continue mechanical ventilatory support, PEEP of 10 FiO2 of 80% tidal volume of 440 and a rate of 24. F/U VBG Recommend ceftriaxone azithromycin pending culture results DuoNebs every 4 hours along with Pulmicort Q12 scheduled Follow with tracheal aspirate - Continue mechanical ventilatory support - Continue AnalgoSedation with Propofol and Fentanyl with CPOT gal less than or euqal to 2 and RASS goal of to 2 (No need for deep sedation) - VAP bundle Recommend elevate head of the bed at 30 to 45 degrees Recommend oral care with chlorhexidne Recommend GI ulcer prophylaxis - Famotidine 20mg IV BID Recommend chemical DVT prophylaxis Total critical care time spent on this patient is 70 minutes managing acute hypoxic respiratory failure needing mechanical ventilation. This time spent include reviewing test results including interpreting chest x-rays, labs and arterial blood gas, optimizing the ventilator settings,formulating plan of care, discussing the plan of care with the team and the nursing staff.
[2024-08-30 13:53] LABS: ABG Base Excess 5.3 mmol/L (-2.4-2.3); ABG HCO3 31.6 mmhg (22.0-26.0); ABG Oxygen Saturation 90 % (90-100); ABG PH 7.31 mmol/L (7.35-7.45); ABG PO2 56.1 mmhg (80-100); ABG TCO2 33.5 mmhg (23-27)
--- NOTE | 2024-08-30 13:56 | PC.NURSE ---
RESP CARE NOTE: Pt ET tube pulled out to 22 (Teeth) per Dr Canales verbal order.
[2024-08-30 13:58] LABS: Allen's Test acceptable; Oxygen 60 %; PEEP 10; Source Left Radial; Tidal Volume 420; Vent Rate 24
[2024-08-30 13:59] LABS: ABG PCO2 64.3 mmhg (35.0-45.0)
--- NOTE | 2024-08-30 14:23 | CA_ITS ---
APPROVED REPORT EXAM: Comprehensive 2D, Doppler, and color-flow Echocardiogram Respiratory Director: Renetta Kerr CRT Ht: 5 ft 0 in Wt: 250lbs BSA: 2.05 BP: 109/90 mmHg Indications: resp failure, pt intubated flat on back with pt up in bed M-Mode Dimensions RVDd 2.64 cm (0.9-2.6) LA Diam 2.94 cm (1.9-4.0) LVDd 5.15 cm (3.5-5.7) LVDs 3.00 cm (3.5-5.7) IVSd 2.01 cm (0.6-1.1) PWd 0.72 cm (0.6-1.1) EF (Teich) 72.40% FS 41.70% EDV (Teich) 126.60 mL TAPSE 2.58 (<1.7) ESV (Teich) 35.00 mL LV Diastology E Decel Time 223 (160-240 msec) E/A Ratio 0.79 MED A' 13.20 cm/s LAT A' 11.20 cm/s Aortic Valve AO Peak GR. 11.20 mmHg Mitral Valve MV E Max Magdiel. 85.0 (40-130 cm/s) MV A Velocity 108.0 (40-130 cm/s) E/A Ratio 0.79 MV PHT 65.0 ms Tricuspid Valve TR P. Velocity 163.00 cm/s RAP Estimate 10.00 mmHg RVSP 20.70 mmHg Left Ventricle The left ventricle is normal size. The left ventricular systolic function is normal. The left ventricular ejection fraction is within the normal range. There is increased LV wall thickness. There is normal LV segmental wall motion. Transmitral Doppler flow pattern suggests impaired LV relaxation. LVEF is 60%. Right Ventricle The right ventricle is normal size. The right ventricular systolic function is normal. Atria The left atrium size is normal. The right atrium size is normal. The interatrial septum is not well-visualized. Aortic Valve The aortic valve is mildly thickened. There is no aortic valvular stenosis. No aortic regurgitation is present. Mitral Valve The mitral valve is mildly thickened. No evidence of mitral valve stenosis. Trace mitral regurgitation. Tricuspid Valve The tricuspid valve leaflets are thin and pliable. Trace tricuspid regurgitation. There is insufficient TR jet to estimate RVSP. Pulmonic Valve The pulmonary valve is grossly normal in structure. Trace pulmonic regurgitation. Great Vessels The aortic root is normal in size. The ascending aorta is not well-visualized. IVC is normal in size and collapses >50% with inspiration. Pericardium There is no pericardial effusion. Other Information Study Quality: Technically Difficult Conclusion Technically difficult study due to poor acoustic windows and mechanical ventilation. Normal biventricular systolic function. No significant valvular stenosis or regurgitation. Electronically signed by : Tasha Robison MD 08/31/2024 09:47:17
[2024-08-30 14:28] LABS: Troponin I 0.02 ng/ml (0.00-0.034)
[2024-08-30] MEDS: METHYLPREDNISOLONE SOD SUCC 40MG VIAL 60 MG IV ×2 (14:32→20:43)
[2024-08-30] MEDS: ENOXAPARIN 40MG/0.4ML SYRINGE 40 MG SQ ×2 (14:33→20:49)
[2024-08-30] MEDS: propofoL 100 ML 40.82 MG IV (14:44)
--- NOTE | 2024-08-30 15:01 | P.PCN_ITS ---
[facility] Procedure Note Date: 08/30/24 Time: 11:00 Procedure Note:: Endotracheal intubation: INDICATION: Worsening hypercarbic respiratory failure in a patient with a history of subglottic stenosis. This procedure was done in an emergent fashion as patient continued to have wors ening respiratory failure and unable to ventilate using noninvasive ventilatory therapy. Consent was not obtained for this procedure. PROCEDURE SUMMARY: A time out was performed. My hands were washed immediately prior to the procedure. I wore a surgical cap, mask with protective eyewear, gown and gloves throughout the procedure. The patient was placed on a cardiac tech including continuous pulse oximetry. The plan was made to awake intubation. Patient received 100 mg of ketamine. Topical lidocaine spray was used. A size 5 LMA was introduced and patient was able to be ventilated with saturations improved to 98%. The bronchoscopy with ET tube was advanced through the LMA epiglottis visualized through the LMA patient was easy to ventilate and oxygenate. However significant airway edema noted with no obvious opening/vocal cords visualized. Unable to pass the bronchoscopy. Patient noted to have desaturations 92% on the bronchoscopy retracted and ambu bag was used to ventil ate and oxygenate. A total 3 attempts were made with the bronchoscopy to advance the ET tube without any significant success despite using 1% lidocaine topical solution to numb the epiglottic area. Eventually the plan was made to paralyze the patient and succinylcholine and patient was successfully intubated with the aides of fiberoptic bronchoscopy. Patient has been hemodynamically stable throughout the procedure. The lowest desaturation noted during procedure was 89%. Patient was given a total of two ampules of bicarb during the procedure. Overall this patient is having severe airway edema and is a very difficult airway. Whether patient can be extubated/need to be transition for assessment will depend on her clinical improvement. Will closely monitor.
[2024-08-30] MEDS: propofoL 100 ML 47.63 MG IV ×3 (16:40→20:42)
[2024-08-30] MEDS: BUDESONIDE 0.5MG/2ML NEB 0.5 MG IH (18:11)
--- NOTE | 2024-08-30 18:16 | EXP.HP ---
History of Present Illness *Admission Date: 08/30/24 *Reason for visit:: Shortness of breath *History of present illness: Jasmin Goodwin is a 64-year-old female with a medical history significant for COPD who presents with worsening shortness of breath over the last day. By the time I was able to interview the patient, she was already sedated and intubated. Most history was obtained through chart review. Per daughter, patient stated that she was not feeling well last night and that she could not breathe. Daughter states patient has severe COPD . When she arrived to the ED, patient had significant increased work of breathing with shallow respirations. She was given Solu-Medrol, continuous albuterol, and BiPAP initially. Initial ABG pH 7.17 pCO2 84. Repeat ABG after BiPAP revealed worsening pH 7.11 pCO2 121.7. I contacted our psychiatric nurse practitioner who came to bedside and performed intubation. It was noticed that she had severe vocal cord and glottic edema, with no concerning subglottic stenosis appreciated. Throughout this course, case was discussed with the ED provider and decision was made to admit patient for acute on chronic hypercapnic respiratory failure secondary to COPD exacerbation. [facility] Disclaimer: The information contained in this section may have been updated after the patient was seen, as this information can be updated by other users. Medical History Glottic edema Difficult airway for intubation COPD exacerbation Pneumonia Acute hypercapnic respiratory failure Family History (Updated 08/30/24 @ 14:02 by Kamilla Hernandez RN) Other Patient unable to provide medical history Social History (Updated 08/30/24 @ 14:01 by Kamilla Hernandez RN) Smoking Status: Current every day smoker alcohol intake: current alcohol intake frequency: 0-2 drinks per day current occupational status: disabled Travel in the last 8 weeks: None Other Medical History Have you received the Flu Vaccine for this season: No Have you received the Pneumonia Vaccine: No Meds Home Medications and Allergies Home Medications ?Medication ?Instructions ?Recorded ?Confirmed ?Type albuterol sulfate 90 mcg/actuation 1 inh inhalation Q4HP PRN 08/30/24 08/30/24 History aerosol inhaler shortness of breath or wheezing ipratropium 0.5 mg-albuterol 3 mg 3 ml inhalation Q6H 08/30/24 08/30/24 History (2.5 mg base)/3 mL nebulization soln New Prescriptions to Start Prescriptions: Allergies Allergy/AdvReac Type Severity Reaction Status Date / Time No Known Allergies Allergy Verified 09/17/21 14:23 Exam Data for Last 24 hours Vital signs and Labs for Last 24 Hours: Temp Pulse Resp BP Pulse Ox O2 Del Method FiO2 96.5 F L 64 20 117/57 L 94 L Mechanical Ventilation 50 08/30/24 13:11 08/30/24 18:00 08/30/24 18:00 08/30/24 18:00 08/30/24 18:00 08/30/24 18:00 08/30/24 15:41 Laboratory Results - last 24 hr 08/30/24 07:07: WBC 7.9, RBC 5.01, Hgb 15.1, Hct 49.3 H, MCV 98.4, MCH 30.1, MCHC 30.6 L, RDW 14.2, Plt Count 270, MPV 8.4, Neut % (Auto) 75.1, Lymph % (Auto) 17.9, [place] % (Auto) 5.9, Eos % (Auto) 0.4, Baso % (Auto) 0.7, Neut # (Auto) 6.0, Lymph # (Auto) 1.4, [place] # (Auto) 0.5, Eos # (Auto) 0.0, Baso # (Auto) 0.1, Sodium 136, Potassium 5.2 H, Chloride 96 L, Carbon Dioxide 38 H, Anion Gap 7.2, BUN 15, Creatinine 0.90, Estimated Creat Clear 42, Estimated GFR 63, Est GFR ( Amer) 77, Glucose 154 H, Calcium 9.0, Total Bilirubin 0.4, AST 98 H, ALT 100 H, Alkaline Phosphatase 192 H, Troponin I 0.02, NT-Pro-B Natriuret Pep 2710 H, Total Protein 7.9, Albumin 4.3, Globulin 3.6 H, Albumin/Globulin Ratio 1.2, HIV 1&2 Antibody Rapid Nonreactive 08/30/24 07:08: Specimen Source Left radial, O2 % 100%, ABG pH 7.17 L*, ABG pCO2 84.0 H, ABG pO2 83.6, ABG HCO3 30.1 H, ABG Total CO2 32.7 H, ABG O2 Saturation 95, ABG Base Excess 1.6, Oliverio Test Acceptable 08/30/24 08:21: SARS-CoV-2 (PCR) Not detected, Influenza A Untype (PCR) Not detected, Influenza Type B (PCR) Not detected 08/30/24 09:16: VBG pH 7.12 L, VBG pCO2 104.6 H, VBG pO2 95.3 H, VBG HCO3 33.5 H, VBG Total CO2 36.7 H, VBG O2 Saturation 96.1 H, VBG Base Excess 4.2 H, VBG Lactic Acid 0.9 08/30/24 10:00: Troponin I 0.02 08/30/24 10:39: Specimen Source l radial, O2 % 70, ABG pH 7.11 L*, ABG pCO2 121.7 H, ABG pO2 191.2 H, ABG HCO3 37.8 H, ABG Total CO2 41.5 H, ABG O2 Saturation 99, ABG Base Excess 8.3 H, Oliverio Test aceptable, ABG Lactate 0.9, Vent Rate 24, Tidal Volume 30/12 08/30/24 13:49: Specimen Source Left radial, O2 % 60, ABG pH 7.31 L, ABG pCO2 64.3 H, ABG pO2 56.1 L, ABG HCO3 31.6 H, ABG Total CO2 33.5 H, ABG O2 Saturation 90, ABG Base Excess 5.3 H, Oliverio Test acceptable, Vent Rate 24, Tidal Volume 420, PEEP 10 08/30/24 13:54: Troponin I 0.02 I & O for Last 24 hours: Intake & Output 08/27/24 08/28/24 08/29/24 08/30/24 23:59 23:59 23:59 23:59 Intake Total 182.028 / 182.028 Output Total 1100 / 1100 Balance -917.972 / -917.972 Weight 113.398 kg Microbiology Reports for the Last 24 Hours: Microbiology 08/30/24 13:43 Sputum - Endotracheal Tube Aspirate Gram Stain - Final Constitutional Comments: Sedated and intubated. *Routine HEENT Exam Head: Present normocephalic Eye: Present EOMI and PERRL ENT: Present mucous membranes moist *Routine Neck Exam Neck: Present supple; Absent lymphadenopathy *Routine Respiratory Exam Respiratory: Present CTA bilaterally *Routine Cardiovascular Exam Cardiovascular: Present RRR *Routine Abdominal Exam Abdominal: Present soft and normoactive bowel sounds; Absent tenderness *Routine Rectal Exam Rectal:: deferred *Routine Genitalia Exam Genitalia:: deferred *Routine Extremities Exam Extremities: Absent cyanosis, clubbing or edema *Routine Skin Exam Skin: Present warm; Absent rash Assessment and Plan *Assessment and plan (1) Glottic edema: Status: Acute Category: Medical Code(s): J38.4 - Edema of larynx (2) Difficult airway for intubation: Status: Acute Category: Medical Code(s): T88.4XXA - Failed or difficult intubation, initial encounter (3) COPD exacerbation: Status: Acute Category: Medical Code(s): J44.1 - Chronic obstructive pulmonary disease with (acute) exacerbation (4) Pneumonia: Status: Acute Category: Medical Code(s): J18.9 - Pneumonia, unspecified organism (5) Acute hypercapnic respiratory failure: Status: Acute Category: Medical Code(s): J96.02 - Acute respiratory failure with hypercapnia (6) Acute respiratory distress: Status: Acute Category: Medical Code(s): R06.03 - Acute respiratory distress (7) Acute hypoxic respiratory failure: Status: Acute Category: Medical Code(s): J96.01 - Acute respiratory failure with hypoxia (8) Acute exacerbation of chronic obstructive airways disease: Status: Acute Category: Medical Code(s): J44.1 - Chronic obstructive pulmonary disease with (acute) exacerbation (9) Exposure to COVID-19 virus: Status: Acute Category: Medical Code(s): Z20.822 - Contact with and (suspected) exposure to COVID-19 Plan Jasmin Goodwin is a 64-year-old female with a medical history significant for COPD who presents with worsening shortness of breath over the last day. By the time I was able to interview the patient, she was already sedated and intubated. Most history was obtained through chart review. Per daughter, patient stated that she was not feeling well last night and that she could not breathe. Daughter states patient has severe COPD . When she arrived to the ED, patient had significant increased work of breathing with shallow respirations. She was given Solu-Medrol, continuous albuterol, and BiPAP initially. Initial ABG pH 7.17 pCO2 84. Repeat ABG after BiPAP revealed worsening pH 7.11 pCO2 121.7. I contacted our psychiatric nurse practitioner who came to bedside and performed intubation. It was noticed that she had severe vocal cord and glottic edema, with no concerning subglottic stenosis appreciated. Throughout this course, case was discussed with the ED provider and decision was made to admit patient for acute on chronic hypercapnic respiratory failure secondary to COPD exacerbation. #Acute hypercarbic respiratory failure #Severe COPD exacerbation #Severe vocal cord, glottic edema versus fatty tissue #Community-acquired pneumonia #Mechanical ventilation ? Continue mechanical ventilation with settings PEEP 10, FiO2 80%, tidal volume 440, respiratory rate 24. ? Continue propofol, fentanyl. Levophed as needed for hypotension in the setting of sedation. ? CXR revealed right perihilar opacity suggestive of pneumonia. Respiratory panel negative for COVID-19, influenza. ? Ceftriaxone, azithromycin day 1. ? Follow-up blood, sputum cultures. ? DuoNebs every 4 hours, Pulmicort twice daily. ? Solu-Medrol 60 mg every 6 hours. ? IV famotidine for GI ulcer prophylaxis. ? Lovenox for DVT prophylaxis. ? Perales in place. NG tube in place. ? Follow-up morning VBG, procalcitonin. ? Will continue to monitor. Patient is not on minimal vent settings for SBT. Can take a few days at the least. ? Consider IM epinephrine if there are signs of worsening swelling or anaphylaxis. #Intertrigo ? Nystatin as needed. Full code DVT prophylaxis: Lovenox
--- NOTE | 2024-08-30 19:11 | PC.WOUNDNOTE ---
picture of bottom
[2024-08-30] MEDS: PANTOPRAZOLE 40MG VIAL 40 MG IV (20:49)
[2024-08-30] MEDS: FAMOTIDINE 20MG/2ML VIAL 20 MG IV (20:49)
[2024-08-30] MEDS: SODIUM CHLORIDE 0.9% 10ML VIAL 8 ML IV ×2 (20:49→20:50)
--- NOTE | 2024-08-30 20:59 | PC.NURSE ---
Addendum entered by Omar Lindsey RN 08/30/24 21:11: Ventilator settings: AC mode, tV 420, RR 20, FiO2 50%, PEEP 10 Original Note: At shift change: Ett 7.0 22cm @ teeth, 0mL to cuff r/t severe bronchial edema. Ett secured with external device NG L nare 65cm L/R AC 20g PIV Perales 16fr patent/draining Patient to remain in reverse trendelenburg per [employer] Verified with outgoing RN
[2024-08-30 21:21] LABS: Microscopic, Urine URINE MICROSCOPIC (MICROSCOPIC)
[2024-08-30 21:29] LABS: Appearance,Urine CLEAR (Clear); Bilirubin,Urine Negative (Negative); Blood, Urine TRACE-I (Negative); Color,Urine YELLOW (Yellow); Glucose,Urine (UA) Negative (Negative); Ketones,Urine Negative (Negative); Leukocyte Esterase,Urine Negative (Negative); Nitrate,Urine POSITIVE (Negative); Protein,Urine 3+ (Negative); Specific Gravity, Urine >= 1.030 (1.005-1.030); Urobilinogen,Urine 0.2 EU/dl (0.2)
[2024-08-30 21:45] LABS: Amorphous Sediment,Urine Trace /lpf; Bacteria,Urine 2+ /lpf; Mucus,Urine 1+ /lpf
[2024-08-30] MEDS: propofoL 100 ML 44.23 MG IV (22:42)
[2024-08-31] VITALS (40 sets, daily range): BP systolic 103–152; BP diastolic 48–84; PULSE 58–110; RESP 18–20; TEMP 36.6–37.1; O2SAT 96–100; BMI 48.8; BMI 48.9
--- NOTE | 2024-08-31 00:23 | PC.NURSE ---
Nish WAGON PERSON at bedside with documenting RN completing airway assessment. Staff observed gurgling noises and decreased vent pressures. Air was added to cuff by Nish ZALDIVAR. Vent pressures increased to normal and no gurgling noises heard. Airway still in place, 22 at teeth. Bilateral breathing sounds with equal rise/fall of chest.
[2024-08-31] MEDS: propofoL 100 ML 47.63 MG IV ×7 (00:27→12:21)
[2024-08-31] MEDS: IPRATROPIUM/ALBUTEROL 3 ML NEB IH ×6 (01:56→22:03)
[2024-08-31] MEDS: METHYLPREDNISOLONE SOD SUCC 40MG VIAL 60 MG IV ×4 (02:28→21:03)
[2024-08-31] MEDS: FENTANYL CITRATE/PF 1,000 MCG in 0.9 % SODIUM CHLORIDE 80 ML 7.25 MCG IV ×2 (03:34→16:37)
[2024-08-31 05:06] LABS: Basophils % 0.5 % (0.1-2.0); Eosinophils # 0.1 K/mm3 (0.0-0.4); Eosinophils % 0.6 % (0.1-12.0); Hematocrit 46.9 % (37.0-47.0); Hemoglobin 14.4 g/dL (12.2-16.2); Lymphocytes # 0.9 K/mm3 (0.7-4.5); Lymphocytes % 10.7 % (10-50); Mean Corpuscular HGB Conc 30.7 g/dL (31.8-35.4); Mean Corpuscular Hemoglobin 29.9 pg (27.0-31.2); Mean Corpuscular Volume 97.3 fl (81-99); Mean Platelet Volume 8.6 fl (7.4-10.4); Monocytes # 0.5 K/mm3 (0.1-1.0); Monocytes % 5.8 % (1.7-9.3); Neutrophils # 6.8 K/mm3 (1.8-7.8); Neutrophils % 82.4 % (37.0-80.0); Platelet Count 301 K/mm3 (142-424); Red Blood Count 4.82 M/mm3 (4.20-5.40); Red Cell Distribution Width 14.1 % (11.5-17.5); White Blood Count 8.3 K/mm3 (4.8-10.8)
--- NOTE | 2024-08-31 05:12 | PC.NURSE ---
Patient remained stable throughout shift without acute change. Tolerating ventilator: AC mode, Vt 420, RR 20, PEEP 10, FiO2 50% with 7.0 Ett measuring 22cm at the teeth. 16fr robles is patent with adequate urinary output noted. Left nare 16Fr NG is patent on low wall intermittent suction and measuring 65cm. Patent c/d/i 20g PIV to bilateral AC sites. Medicated per JAN-- see titration record. Angioedema has decreased significantly on physical exam. See previous note regarding [employer] ATTENDANT inflating Ett cuff. Otherwise, patient NAD, VSS. ICU care continues.
[2024-08-31 05:17] LABS: Chloride 101 mmol/L (98-107); Potassium 3.7 mmoL/L (3.5-5.1); Sodium 138 mmol/L (136-145)
[2024-08-31 05:20] LABS: Anion Gap 8.7 mEq/L (5-15); Blood Urea Nitrogen 20 mg/dl (7-17); Carbon Dioxide 32 mmol/L (22.0-30.0); Creatinine Clearance Estimated 42 mL/min (50-200); Estimated Glomerular Filt Rate 63 ml/min (>60); GFR (African American) 77 ML/MIN (>60)
[2024-08-31 05:21] LABS: Calcium 9.1 mg/dl (8.4-10.2); Glucose 175 mg/dl (74-100)
[2024-08-31 05:27] LABS: HCV Ab Non Reactive (Non Reactive)
[2024-08-31 05:56] LABS: Procalcitonin 0.118 ng/mL (0.0-2.0)
[2024-08-31] MEDS: BUDESONIDE 0.5MG/2ML NEB 0.5 MG IH ×2 (06:11→18:12)
[2024-08-31 08:01] LABS: ABG HCO3 26.7 mmhg (22.0-26.0); ABG Oxygen Saturation 96 % (90-100); ABG PCO2 37.6 mmhg (35.0-45.0); ABG PH 7.47 mmol/L (7.35-7.45); ABG PO2 76.8 mmhg (80-100); ABG TCO2 27.8 mmhg (23-27)
--- NOTE | 2024-08-31 08:09 | PC.WOUNDNOTE ---
skin assessment of coccyx
[2024-08-31 08:17] LABS: Allen's Test acceptable; Oxygen 50 %; PEEP 10; Source Left Radial; Tidal Volume 420; Vent Rate 20
[2024-08-31] MEDS: CEFTRIAXONE 1 GM 1 GM in 0.9 % SODIUM CHLORIDE 50 ML IV (09:41)
[2024-08-31] MEDS: ENOXAPARIN 40MG/0.4ML SYRINGE 40 MG SQ ×2 (09:41→21:03)
--- NOTE | 2024-08-31 09:45 | EXP.PULM.PN ---
Subjective *Date: 08/31/24 *Time: 10:38 Interval history: No acute respiratory vents overnight. Continue to remain intubated. Pulmonology Exam Inpatient Vital signs and Labs for Last 24 Hours: Temp Pulse Resp BP Pulse Ox O2 Del Method FiO2 97.8 F 76 18 111/52 L 96 Mechanical Ventilation 50 08/31/24 08:00 08/31/24 09:19 08/31/24 09:35 08/31/24 09:00 08/31/24 09:35 08/31/24 09:00 08/31/24 09:35 Laboratory Results - last 24 hr 08/30/24 07:07: Hepatitis C Antibody Non reactive, HIV 1&2 Antibody Rapid Nonreactive 08/30/24 10:00: Troponin I 0.02 08/30/24 10:39: Specimen Source l radial, O2 % 70, ABG pH 7.11 L*, ABG pCO2 121.7 H, ABG pO2 191.2 H, ABG HCO3 37.8 H, ABG Total CO2 41.5 H, ABG O2 Saturation 99, ABG Base Excess 8.3 H, Oliverio Test aceptable, ABG Lactate 0.9, Vent Rate 24, Tidal Volume 30/12 08/30/24 13:49: Specimen Source Left radial, O2 % 60, ABG pH 7.31 L, ABG pCO2 64.3 H, ABG pO2 56.1 L, ABG HCO3 31.6 H, ABG Total CO2 33.5 H, ABG O2 Saturation 90, ABG Base Excess 5.3 H, Oliverio Test acceptable, Vent Rate 24, Tidal Volume 420, PEEP 10 08/30/24 13:54: Troponin I 0.02 08/30/24 14:20: Urine Color Yellow, Urine Appearance Clear, Urine pH 6.0, Ur Specific [place] >= 1.030, Urine Protein 3+ A, Urine Glucose (UA) Negative, Urine Ketones Negative, Urine Blood Trace-i, Urine Nitrate Positive, Urine Bilirubin Negative, Urine Urobilinogen 0.2, Ur Leukocyte Esterase Negative, Urine RBC 3-5, Urine WBC 3-5, Ur Squamous Epith Cells 3-5, Amorphous Sediment Trace, Urine Bacteria 2+, Hyaline Casts 3-5, Urine Mucus 1+ 08/31/24 05:00: WBC 8.3, RBC 4.82, Hgb 14.4, Hct 46.9, MCV 97.3, MCH 29.9, MCHC 30.7 L, RDW 14.1, Plt Count 301, MPV 8.6, Neut % (Auto) 82.4 H, Lymph % (Auto) 10.7, [place] % (Auto) 5.8, Eos % (Auto) 0.6, Baso % (Auto) 0.5, Neut # (Auto) 6.8, Lymph # (Auto) 0.9, [place] # (Auto) 0.5, Eos # (Auto) 0.1, Baso # (Auto) 0.0, Sodium 138, Potassium 3.7 D, Chloride 101, Carbon Dioxide 32 H, Anion Gap 8.7, BUN 20 H D, Creatinine 0.90, Estimated Creat Clear 42, Estimated GFR 63, Est GFR ( Amer) 77, Glucose 175 H, Calcium 9.1, Procalcitonin 0.118 08/31/24 07:55: Specimen Source Left radial, O2 % 50, ABG pH 7.47 H, ABG pCO2 37.6, ABG pO2 76.8 L, ABG HCO3 26.7 H, ABG Total CO2 27.8 H, ABG O2 Saturation 96, ABG Base Excess 3.0 H, Oliverio Test acceptable, Vent Rate 20, Tidal Volume 420, PEEP 10 Temp Pulse Resp BP Pulse Ox O2 Del Method FiO2 98.6 F 98 H 20 109/90 L 98 BiPAP 80 08/30/24 10:21 08/30/24 10:30 08/30/24 10:30 08/30/24 10:30 08/30/24 10:30 08/30/24 10:30 08/30/24 08:00 Laboratory Results - last 24 hr 08/30/24 07:07: WBC 7.9, RBC 5.01, Hgb 15.1, Hct 49.3 H, MCV 98.4, MCH 30.1, MCHC 30.6 L, RDW 14.2, Plt Count 270, MPV 8.4, Neut % (Auto) 75.1, Lymph % (Auto) 17.9, [place] % (Auto) 5.9, Eos % (Auto) 0.4, Baso % (Auto) 0.7, Neut # (Auto) 6.0, Lymph # (Auto) 1.4, [place] # (Auto) 0.5, Eos # (Auto) 0.0, Baso # (Auto) 0.1, Sodium 136, Potassium 5.2 H, Chloride 96 L, Carbon Dioxide 38 H, Anion Gap 7.2, BUN 15, Creatinine 0.90, Estimated Creat Clear 42, Estimated GFR 63, Est GFR ( Amer) 77, Glucose 154 H, Calcium 9.0, Total Bilirubin 0.4, AST 98 H, ALT 100 H, Alkaline Phosphatase 192 H, Troponin I 0.02, NT-Pro-B Natriuret Pep 2710 H, Total Protein 7.9, Albumin 4.3, Globulin 3.6 H, Albumin/Globulin Ratio 1.2, HIV 1&2 Antibody Rapid Nonreactive 08/30/24 07:08: Specimen Source Left radial, O2 % 100%, ABG pH 7.17 L*, ABG pCO2 84.0 H, ABG pO2 83.6, ABG HCO3 30.1 H, ABG Total CO2 32.7 H, ABG O2 Saturation 95, ABG Base Excess 1.6, Oliverio Test Acceptable 08/30/24 08:21: SARS-CoV-2 (PCR) Not detected, Influenza A Untype (PCR) Not detected, Influenza Type B (PCR) Not detected 08/30/24 09:16: VBG pH 7.12 L, VBG pCO2 104.6 H, VBG pO2 95.3 H, VBG HCO3 33.5 H, VBG Total CO2 36.7 H, VBG O2 Saturation 96.1 H, VBG Base Excess 4.2 H, VBG Lactic Acid 0.9 08/30/24 10:00: Troponin I 0.02 08/30/24 10:39: Specimen Source l radial, O2 % 70, ABG pH 7.11 L*, ABG pCO2 121.7 H, ABG pO2 191.2 H, ABG HCO3 37.8 H, ABG Total CO2 41.5 H, ABG O2 Saturation 99, ABG Base Excess 8.3 H, Oliverio Test aceptable, ABG Lactate 0.9, Vent Rate 24, Tidal Volume 30/12 I & O for Labs for Last 24 Hours: Intake & Output 08/28/24 08/29/24 08/30/24 08/31/24 23:59 23:59 23:59 23:59 Intake Total 824.078 / 824.078 575.447 / 575.447 Output Total 1849 695 / 695 Balance -1025.922 / -1150.922 -119.553 / -119.553 Weight 250 lb 250 lb 0.067 oz Intake & Output 08/27/24 08/28/24 08/29/24 08/30/24 23:59 23:59 23:59 23:59 Intake Total 0.850 / 0.850 Balance 0.850 / 0.850 Weight 250 lb Microbiology Reports for the Last 24 Hours: Microbiology 08/30/24 13:43 Sputum - Endotracheal Tube Aspirate Gram Stain - Final 08/30/24 13:43 Sputum - Endotracheal Tube Aspirate Sputum Culture - Preliminary 08/30/24 08:15 Blood Blood Culture - Preliminary NO GROWTH AFTER 24 HOURS 08/30/24 07:40 Blood Blood Culture - Preliminary NO GROWTH AFTER 24 HOURS Constitutional: Present severe distress Comment:: Intubated and Sedated Head: Present normocephalic and atraumatic Neck: Present normal inspection and trachea midline Respiratory: Present patient mechanically ventilated, prolonged expiratory phase, respiratory distress, rhonchi, wheezes and diminished air movement Cardiac: Present S1/S2 and Tachycardia GI: Present soft and distention; Absent tenderness Comments:: Abdominal scars noted Skin: Present intact; Absent cyanosis Neuro: Absent alert, awake or oriented x 3 Comment:: Intubated and sedated Extremities: Present normal inspection; Absent clubbing or cyanosis Psychiatric: Present unable to assess Assessment and Plan *Assessment and plan (1) Acute hypercapnic respiratory failure: Status: Acute Category: Medical Code(s): J96.02 - Acute respiratory failure with hypercapnia (2) Pneumonia: Status: Acute Category: Medical Code(s): J18.9 - Pneumonia, unspecified organism (3) COPD exacerbation: Status: Acute Category: Medical Code(s): J44.1 - Chronic obstructive pulmonary disease with (acute) exacerbation (4) Difficult airway for intubation: Status: Acute Category: Medical Code(s): T88.4XXA - Failed or difficult intubation, initial encounter (5) Glottic edema: Status: Acute Category: Medical Code(s): J38.4 - Edema of larynx Plan Patient altered. Much of the history is obtained from chart review. Ms. Goodwin is a 64-year-old female greater than [id number] smoking history, severe COPD on triple inhaler therapy presented to the ER with worsening respiratory's needing noninvasive ventilator therapy and pulmonary was called for further evaluation and management. Difficulty ventilating this patient despite changing her settings and BiPAP with worsening hypercarbic respiratory failure eventually needing intubation and mechanical ventilatory support. Patient is a very difficult airway. Severe vocal cord on glottic edema noted. No concerning subglottic stenosis appreciated. Afebrile. Hemodynamically stable. No evidence of leukocytosis. Chest x-ray upon admission questionable right lower lobe infiltrate. Interval update: No acute respiratory vents overnight. Stable vent settings. Improving hemodynamics, off pressors. Will initiate tube feeds. Continue ceftriaxone azithromycin pending tracheal aspirate cultures. Follow with nasal MRSA PCR. Airway edema appeared to be improved today however no significant leak appreciated. Will wean sedation and will attempt SBT. Continue to receive methylprednisolone 60 every 6 hours along with famotidine twice daily Echo EF at 60%. RV normal size and normal systolic function. Impaired LV relaxation. Lasix 40 mg IV once Plan: Continue Analgo sedation with propofol and fentanyl. Light sedation. Continue mechanical ventilatory support, PEEP of 10 FiO2 of 50% tidal volume of 420 and a rate of 18. Blood gas from this morning improving hypercarbic respiratory failure. Rate decreased to 18. Recommend ceftriaxone azithromycin pending culture results DuoNebs every 4 hours along with Pulmicort Q12 scheduled Follow with tracheal aspirate Follow with chest x-ray PA lateral - Continue mechanical ventilatory support - Continue AnalgoSedation with Propofol and Fentanyl with CPOT gal less than or euqal to 2 and RASS goal of to 2 (No need for deep sedation) - VAP bundle Recommend elevate head of the bed at 30 to 45 degrees Recommend oral care with chlorhexidne Recommend GI ulcer prophylaxis - Famotidine 20mg IV BID Recommend chemical DVT prophylaxis Total critical care time spent on this patient is 35 minutes managing acute hypoxic respiratory failure needing mechanical ventilation. This time spent include reviewing test results including interpreting chest x-rays, labs and arterial blood gas, optimizing the ventilator settings,formulating plan of care, discussing the plan of care with the team and the nursing staff.
[2024-08-31] MEDS: AZITHROMYCIN 500 MG in 0.9 % SODIUM CHLORIDE 250 ML 250 MG IV (10:16)
--- NOTE | 2024-08-31 10:40 | XR_ITS ---
FINAL REPORT CLINICAL HISTORY: Pneumonia, follow-up COMPARISON: 08/30/2024 FINDINGS: A single view of the chest was obtained. The heart is normal in size. The endotracheal tube is in proper position. An NG tube courses off the inferior margin of the film. There are patchy bibasilar airspace infiltrates, left greater than right, consistent with acute pneumonia. This appears new compared to the prior exam. There is no pleural effusion. There is no pneumothorax. There is no acute osseous abnormality. IMPRESSION: New, bibasilar pneumonia, left greater than right. Reviewed, Interpreted and Dictated by Jluis Alcantara MD Transcribed by Alaina Hatfiedl Authenticated and [facility]
--- NOTE | 2024-08-31 11:41 | DIET.NUTRFU ---
propofol receiving 1200ml/24hr= 55kcal/day. Will continue to monitor amount and adjust TF. No bolus IF ordered, receiving IVF with medication. RD consulted to start TF, patient has NG tube in place. Start Pulmocare at 20ml/hr increase by 10ml Q4H if tolerated to reach goal of 55ml/hr providing 1980kcal, 82gm protein and 1036ml formula water. Labs: Na 138, K 3.7, BUN 20H, glucose 175H. Flush with 150ml [id number]=611ay/day.
[2024-08-31] MEDS: FUROSEMIDE 40MG/4ML VIAL 40 MG IV (11:57)
--- NOTE | 2024-08-31 14:09 | PC.NURSE ---
Addendum entered by Marielle Cornejo RN 08/31/24 14:56: correction: 1445 propofol increased to 45mcg r/t pt shaking and tightening of body with any form of stimulation Addendum entered by Marielle Cornejo RN 08/31/24 14:49: 1445 propofol increased to 50mcg r/t pt shaking and tightening of body with any form of stimulation Addendum entered by Marielle Cornejo RN 08/31/24 14:32: 1415 propofol increased to 40mcg following unsuccessful SBT Original Note: 1340 propofol decreased to 40mcg r/t SBT 1358 propofol decreased to 20 mcg r/t SBT
--- NOTE | 2024-08-31 14:13 | PC.NURSE ---
Resp Care Note: Attempted SBT mode on ventilator, Pt was following commands and sedation was weaned to appropriate levels. Breathing trial abandoned due to constant coughing, agitation, anxiety. We will attempt again tomorrow, per Dr Canales.
[2024-08-31] MEDS: propofoL 100 ML 27.22 MG IV (14:39)
--- NOTE | 2024-08-31 15:12 | P.PN_ITS ---
Subjective *Date: 08/31/24 *Time: 15:12 Interval history: Patient appears comfortable, intubated and sedated. Exam Data for Last 24 hours Vital signs and Labs for Last 24 Hours: Temp Pulse Resp BP Pulse Ox O2 Del Method FiO2 97.8 F 67 18 134/58 L 100 Mechanical Ventilation 50 08/31/24 08:00 08/31/24 15:00 08/31/24 15:00 08/31/24 15:00 08/31/24 15:00 08/31/24 15:08 08/31/24 15:00 Laboratory Results - last 24 hr 08/30/24 07:07: Hepatitis C Antibody Non reactive 08/30/24 14:20: Urine Color Yellow, Urine Appearance Clear, Urine pH 6.0, Ur Specific [place] >= 1.030, Urine Protein 3+ A, Urine Glucose (UA) Negative, Urine Ketones Negative, Urine Blood Trace-i, Urine Nitrate Positive, Urine Bilirubin Negative, Urine Urobilinogen 0.2, Ur Leukocyte Esterase Negative, Urine RBC 3-5, Urine WBC 3-5, Ur Squamous Epith Cells 3-5, Amorphous Sediment Trace, Urine Bacteria 2+, Hyaline Casts 3-5, Urine Mucus 1+ 08/31/24 05:00: WBC 8.3, RBC 4.82, Hgb 14.4, Hct 46.9, MCV 97.3, MCH 29.9, MCHC 30.7 L, RDW 14.1, Plt Count 301, MPV 8.6, Neut % (Auto) 82.4 H, Lymph % (Auto) 10.7, [place] % (Auto) 5.8, Eos % (Auto) 0.6, Baso % (Auto) 0.5, Neut # (Auto) 6.8, Lymph # (Auto) 0.9, [place] # (Auto) 0.5, Eos # (Auto) 0.1, Baso # (Auto) 0.0, Sodium 138, Potassium 3.7 D, Chloride 101, Carbon Dioxide 32 H, Anion Gap 8.7, BUN 20 H D, Creatinine 0.90, Estimated Creat Clear 42, Estimated GFR 63, Est GFR ( Amer) 77, Glucose 175 H, Calcium 9.1, Procalcitonin 0.118 08/31/24 07:55: Specimen Source Left radial, O2 % 50, ABG pH 7.47 H, ABG pCO2 37.6, ABG pO2 76.8 L, ABG HCO3 26.7 H, ABG Total CO2 27.8 H, ABG O2 Saturation 96, ABG Base Excess 3.0 H, Oliverio Test acceptable, Vent Rate 20, Tidal Volume 420, PEEP 10 I & O for Last 24 hours: Intake & Output 08/28/24 08/29/24 08/30/24 08/31/24 23:59 23:59 23:59 23:59 Intake Total 824.078 / 529.847 1655.605 / 1176.605 Output Total 1849 / 1974 1875 / 1875 Balance -1025.922 / -1150.922 -698.395 / -698.395 Weight 113.398 kg 113 kg Microbiology Reports for the Last 24 Hours: Microbiology 08/30/24 13:43 Sputum - Endotracheal Tube Aspirate Gram Stain - Final 08/30/24 13:43 Sputum - Endotracheal Tube Aspirate Sputum Culture - Preliminary 08/30/24 08:15 Blood Blood Culture - Preliminary NO GROWTH AFTER 24 HOURS 08/30/24 07:40 Blood Blood Culture - Preliminary NO GROWTH AFTER 24 HOURS Constitutional Constitutional: no acute distress and obese Comments: Intubated and sedated. *Routine HEENT Exam Head: Present normocephalic Eye: Present EOMI and PERRL ENT: Present mucous membranes moist *Routine Neck Exam Neck: Present supple; Absent lymphadenopathy *Routine Respiratory Exam Respiratory: Present CTA bilaterally *Routine Cardiovascular Exam Cardiovascular: Present RRR *Routine Abdominal Exam Abdominal: Present soft and normoactive bowel sounds; Absent tenderness *Routine Extremities Exam Extremities: Absent cyanosis, clubbing or edema *Routine Skin Exam Skin: Present warm; Absent rash Assessment and Plan *Assessment and plan (1) Glottic edema: Status: Acute Category: Medical Code(s): J38.4 - Edema of larynx (2) Difficult airway for intubation: Status: Acute Category: Medical Code(s): T88.4XXA - Failed or difficult intubation, initial encounter (3) COPD exacerbation: Status: Acute Category: Medical Code(s): J44.1 - Chronic obstructive pulmonary disease with (acute) exacerbation (4) Pneumonia: Status: Acute Category: Medical Code(s): J18.9 - Pneumonia, unspecified organism (5) Acute hypercapnic respiratory failure: Status: Acute Category: Medical Code(s): J96.02 - Acute respiratory failure with hypercapnia (6) Acute respiratory distress: Status: Acute Category: Medical Code(s): R06.03 - Acute respiratory distress (7) Acute hypoxic respiratory failure: Status: Acute Category: Medical Code(s): J96.01 - Acute respiratory failure with hypoxia (8) Acute exacerbation of chronic obstructive airways disease: Status: Acute Category: Medical Code(s): J44.1 - Chronic obstructive pulmonary disease with (acute) exacerbation (9) Exposure to COVID-19 virus: Status: Acute Category: Medical Code(s): Z20.822 - Contact with and (suspected) exposure to COVID-19 Plan Jasmin Goodwin is a 64-year-old female with a medical history significant for COPD who presents with worsening shortness of breath over the last day. By the time I was able to interview the patient, she was already sedated and intubated. Most history was obtained through chart review. Per daughter, patient stated that she was not feeling well last night and that she could not breathe. Daughter states patient has severe COPD . When she arrived to the ED, patient had significant increased work of breathing with shallow respirations. She was given Solu-Medrol, continuous albuterol, and BiPAP initially. Initial ABG pH 7.17 pCO2 84. Repeat ABG after BiPAP revealed worsening pH 7.11 pCO2 121.7. I contacted our telephone service representative who came to bedside and performed intubation. It was noticed that she had severe vocal cord and glottic edema, with no concerning subglottic stenosis appreciated. Throughout this course, case was discussed with the ED provider and decision was made to admit patient for acute on chronic hypercapnic respiratory failure secondary to COPD exacerbation. #Acute hypercarbic respiratory failure #Severe COPD exacerbation #Severe vocal cord, glottic edema versus fatty tissue #Community-acquired pneumonia #Mechanical ventilation ? Patient is stable on mechanical ventilation, sedation. No acute overnight events. ? ABG this morning pH 7.47, pCO2 is 37.6, pO2 76.8. Respiratory rate reduced to 18, tidal volume reduced to 420. Procalcitonin normal. ? Continue mechanical ventilation with settings PEEP 10, FiO2 50%, tidal volume 420, respiratory rate 18. ? Continue propofol, fentanyl. Levophed as needed for hypotension in the setting of sedation. ? CXR revealed right perihilar opacity suggestive of pneumonia. Respiratory panel negative for COVID-19, influenza. ? Ceftriaxone, azithromycin day 2. ? Follow-up blood, sputum cultures. ? DuoNebs every 4 hours, Pulmicort twice daily. ? Solu-Medrol 60 mg every 6 hours. ? IV famotidine for GI ulcer prophylaxis. ? Lovenox for DVT prophylaxis. ? Perales in place. NG tube in place. ? Consider IM epinephrine if there are signs of worsening swelling or anaphylaxis. ? Pulmonology following, appreciate efforts and recommendations. Attempted SBT with minimal sedation. However, abandon due to constant coughing, agitation, anxiety. Plan to try again tomorrow. #Intertrigo ? Nystatin as needed. #Obesity ? Complicates all aspects of care. Full code DVT prophylaxis: Lovenox
[2024-08-31] MEDS: propofoL 100 ML 34.02 MG IV (17:53)
--- NOTE | 2024-08-31 19:15 | PC.NURSE ---
Left nare NG @65cm Vent AC mode, Vt 420, FiO2 50%, RR 18, PEEP 10 7.0 Ett measuring 22cm at teeth 16fr robles patent with green tinged urine r/t Propofol infusion Bilateral 20g AC PIV Tube feeding infusing at 20mL/hr with goal of 55mL/hr. 150mL q4h water flush
[2024-08-31] MEDS: propofoL 100 ML 30.62 MG IV ×2 (20:00→22:00)
[2024-08-31] MEDS: FAMOTIDINE 20MG/2ML VIAL 20 MG IV (21:02)
[2024-08-31] MEDS: SODIUM CHLORIDE 0.9% 10ML VIAL 10 ML IV (21:03)
[2024-08-31] MEDS: PANTOPRAZOLE 40MG VIAL 40 MG IV (21:03)
[2024-08-31] MEDS: SODIUM CHLORIDE 0.9% 10ML VIAL 8 ML IV (21:03)
--- NOTE | 2024-08-31 22:00 | PC.NURSE ---
Tube feeding increased every hour by 10mL to reach goal of 55mL/hr 1900: 30mL 2000: 40mL 2100: 50mL 2130: 55mL Gastric residual checked 2200 with 20mL of residual volume noted. No s/sx of intolerance. Returned aspirated volumes and tube feedings continued per order and protocol.
[2024-09-01] VITALS (36 sets, daily range): BP systolic 91–154; BP diastolic 51–87; PULSE 62–100; RESP 18; TEMP 36.8–37.1; O2SAT 95–99; BMI 45.0
[2024-09-01] MEDS: propofoL 100 ML 30.62 MG IV ×5 (00:46→09:34)
[2024-09-01] MEDS: FENTANYL CITRATE/PF 1,000 MCG in 0.9 % SODIUM CHLORIDE 80 ML 7.25 MCG IV (01:34)
[2024-09-01] MEDS: IPRATROPIUM/ALBUTEROL 3 ML NEB IH ×6 (02:27→21:57)
--- NOTE | 2024-09-01 02:36 | PC.NURSE ---
Gastric residual volume checked with 72mL noted. Aspirate returned and tube feeding continued per order and protocol. No s/sx of intolerance
[2024-09-01] MEDS: METHYLPREDNISOLONE SOD SUCC 40MG VIAL 60 MG IV ×2 (03:09→09:30)
--- NOTE | 2024-09-01 04:21 | PC.NURSE ---
Patient had no acute change throughout shift. Remains stable on medications per MAR/titration record. Remains stable on vent: AC mode, Vt 420, RR 18, FiO2 50%, PEEP 10. Tolerating tube feeds at 55mL/hr with 150mL water flush q4h. 16fr left nare NG measuring 65cm. Ett 7.0 patent measuring 22cm at teeth. Patient tolerates oral care and q2h turns. Adequate urinary output via 16fr robles with clear, green colored urine r/t continuous propofol infusion. Full bed bath given to patient earlier in shift. Only skin concerns is excoriation noted under bilateral breasts that was visualized with LEONILA Sims. No redness or pressure injuries noted to high risk areas. VSS with NAD otherwise. ICU care continued.
[2024-09-01 05:09] LABS: Basophils # 0.1 K/mm3 (0-0.2); Basophils % 1.3 % (0.1-2.0); Eosinophils # 0.1 K/mm3 (0.0-0.4); Eosinophils % 0.7 % (0.1-12.0); Hematocrit 43.4 % (37.0-47.0); Hemoglobin 14.1 g/dL (12.2-16.2); Lymphocytes # 0.7 K/mm3 (0.7-4.5); Lymphocytes % 10.3 % (10-50); Mean Corpuscular HGB Conc 32.6 g/dL (31.8-35.4); Mean Corpuscular Hemoglobin 29.8 pg (27.0-31.2); Mean Corpuscular Volume 91.6 fl (81-99); Mean Platelet Volume 8.8 fl (7.4-10.4); Monocytes % 14.1 % (1.7-9.3); Neutrophils % 73.7 % (37.0-80.0); Platelet Count 293 K/mm3 (142-424); Red Blood Count 4.74 M/mm3 (4.20-5.40); Red Cell Distribution Width 14.2 % (11.5-17.5); White Blood Count 6.8 K/mm3 (4.8-10.8)
[2024-09-01 05:22] LABS: Chloride 100 mmol/L (98-107); Potassium 3.5 mmoL/L (3.5-5.1); Sodium 137 mmol/L (136-145)
[2024-09-01 05:25] LABS: Anion Gap 6.5 mEq/L (5-15); Blood Urea Nitrogen 38 mg/dl (7-17); Calcium 8.8 mg/dl (8.4-10.2); Carbon Dioxide 34 mmol/L (22.0-30.0); Creatinine Clearance Estimated 36 mL/min (50-200); Estimated Glomerular Filt Rate 50 ml/min (>60); GFR (African American) 61 ML/MIN (>60); Glucose 178 mg/dl (74-100)
[2024-09-01 05:39] LABS: Magnesium 2.4 mg/dl (1.6-2.3)
[2024-09-01 05:56] LABS: POC Glucose,Bedside 168 (70-110)
[2024-09-01] MEDS: POTASSIUM CHLORIDE 20MEQ/15ML UDC 40 MEQ NG-TUBE ×2 (05:56→09:32)
[2024-09-01] MEDS: humaLOG 100 UNITS/ML 10ML VIAL (SSI) SQ (05:56)
--- NOTE | 2024-09-01 06:00 | XR_ITS ---
FINAL REPORT CLINICAL HISTORY: Pneumonia mechanical ventilation COMPARISON: 08/31/2024 FINDINGS: Mild cardiomegaly is present. There is an endotracheal tube present with its tip 1.2 cm proximal to the ned. The mediastinum is normal. Mild atelectasis is present in the lung bases. There are no pleural effusions. There is no pneumothorax. There is no osseous abnormality. IMPRESSION: Endotracheal tube is present with its tip 1.2 cm proximal to the ned. Mild atelectasis is present in the lung bases. Reviewed, Interpreted and Dictated by Jluis Alcantara MD Transcribed by Kalpana Blake Authenticated and . [facility]
[2024-09-01] MEDS: BUDESONIDE 0.5MG/2ML NEB 0.5 MG IH ×2 (06:20→17:21)
--- NOTE | 2024-09-01 06:23 | PC.NURSE ---
Gastric residual volume noted to be 120mL. Aspirate returned to patient. Tube feed settings continued without s/sx of intolerance
--- NOTE | 2024-09-01 09:22 | EXP.PULM.PN ---
Subjective *Date: 09/01/24 *Time: 10:10 Interval history: No acute respiratory vents overnight. Stable oxygen requirements. Pulmonology Exam Inpatient Vital signs and Labs for Last 24 Hours: Temp Pulse Resp BP Pulse Ox O2 Del Method FiO2 98.4 F 69 18 91/51 L 97 Mechanical Ventilation 50 09/01/24 07:00 09/01/24 09:00 09/01/24 09:00 09/01/24 09:00 09/01/24 09:00 09/01/24 09:00 09/01/24 09:00 Laboratory Results - last 24 hr 09/01/24 05:03: WBC 6.8, RBC 4.74, Hgb 14.1, Hct 43.4, MCV 91.6, MCH 29.8, MCHC 32.6, RDW 14.2, Plt Count 293, MPV 8.8, Neut % (Auto) 73.7, Lymph % (Auto) 10.3, [place] % (Auto) 14.1 H, Eos % (Auto) 0.7, Baso % (Auto) 1.3, Neut # (Auto) 5.0, Lymph # (Auto) 0.7, [place] # (Auto) 1.0, Eos # (Auto) 0.1, Baso # (Auto) 0.1, Sodium 137, Potassium 3.5, Chloride 100, Carbon Dioxide 34 H, Anion Gap 6.5, BUN 38 H D, Creatinine 1.10 H D, Estimated Creat Clear 36, Estimated GFR 50 L, Est GFR ( Amer) 61 D, Glucose 178 H, Calcium 8.8, Magnesium 2.4 H 09/01/24 05:47: POC Glucose 168 H Temp Pulse Resp BP Pulse Ox O2 Del Method FiO2 98.6 F 98 H 20 109/90 L 98 BiPAP 80 08/30/24 10:21 08/30/24 10:30 08/30/24 10:30 08/30/24 10:30 08/30/24 10:30 08/30/24 10:30 08/30/24 08:00 Laboratory Results - last 24 hr 08/30/24 07:07: WBC 7.9, RBC 5.01, Hgb 15.1, Hct 49.3 H, MCV 98.4, MCH 30.1, MCHC 30.6 L, RDW 14.2, Plt Count 270, MPV 8.4, Neut % (Auto) 75.1, Lymph % (Auto) 17.9, [place] % (Auto) 5.9, Eos % (Auto) 0.4, Baso % (Auto) 0.7, Neut # (Auto) 6.0, Lymph # (Auto) 1.4, [place] # (Auto) 0.5, Eos # (Auto) 0.0, Baso # (Auto) 0.1, Sodium 136, Potassium 5.2 H, Chloride 96 L, Carbon Dioxide 38 H, Anion Gap 7.2, BUN 15, Creatinine 0.90, Estimated Creat Clear 42, Estimated GFR 63, Est GFR ( Amer) 77, Glucose 154 H, Calcium 9.0, Total Bilirubin 0.4, AST 98 H, ALT 100 H, Alkaline Phosphatase 192 H, Troponin I 0.02, NT-Pro-B Natriuret Pep 2710 H, Total Protein 7.9, Albumin 4.3, Globulin 3.6 H, Albumin/Globulin Ratio 1.2, HIV 1&2 Antibody Rapid Nonreactive 08/30/24 07:08: Specimen Source Left radial, O2 % 100%, ABG pH 7.17 L*, ABG pCO2 84.0 H, ABG pO2 83.6, ABG HCO3 30.1 H, ABG Total CO2 32.7 H, ABG O2 Saturation 95, ABG Base Excess 1.6, Oliverio Test Acceptable 08/30/24 08:21: SARS-CoV-2 (PCR) Not detected, Influenza A Untype (PCR) Not detected, Influenza Type B (PCR) Not detected 08/30/24 09:16: VBG pH 7.12 L, VBG pCO2 104.6 H, VBG pO2 95.3 H, VBG HCO3 33.5 H, VBG Total CO2 36.7 H, VBG O2 Saturation 96.1 H, VBG Base Excess 4.2 H, VBG Lactic Acid 0.9 08/30/24 10:00: Troponin I 0.02 08/30/24 10:39: Specimen Source l radial, O2 % 70, ABG pH 7.11 L*, ABG pCO2 121.7 H, ABG pO2 191.2 H, ABG HCO3 37.8 H, ABG Total CO2 41.5 H, ABG O2 Saturation 99, ABG Base Excess 8.3 H, Oliverio Test aceptable, ABG Lactate 0.9, Vent Rate 24, Tidal Volume 30/12 I & O for Labs for Last 24 Hours: Intake & Output 08/29/24 08/30/24 08/31/24 09/01/24 23:59 23:59 23:59 23:59 Intake Total 824.078 / 722.893 3220.495 / 9329.802 7872.504 / 1255.504 Output Total 1849 / 1974 2485 / 2545 550 / 550 Balance -1025.922 / -1150.922 -578.505 / -588.505 705.504 / 705.504 Weight 250 lb 249 lb 1.957 oz 229 lb 6 oz Intake & Output 08/27/24 08/28/24 08/29/24 08/30/24 23:59 23:59 23:59 23:59 Intake Total 0.850 / 0.850 Balance 0.850 / 0.850 Weight 250 lb Microbiology Reports for the Last 24 Hours: Microbiology 08/30/24 08:15 Blood Blood Culture - Preliminary NO GROWTH AFTER 48 HOURS 08/30/24 07:40 Blood Blood Culture - Preliminary NO GROWTH AFTER 48 HOURS 08/30/24 13:43 Sputum - Endotracheal Tube Aspirate Gram Stain - Final 08/30/24 13:43 Sputum - Endotracheal Tube Aspirate Sputum Culture - Preliminary Constitutional: Present severe distress Comment:: Intubated and Sedated Head: Present normocephalic and atraumatic Neck: Present normal inspection and trachea midline Respiratory: Present patient mechanically ventilated, prolonged expiratory phase, respiratory distress, rhonchi and wheezes Cardiac: Present S1/S2 and Tachycardia GI: Present soft and distention; Absent tenderness Comments:: Abdominal scars noted Skin: Present intact; Absent cyanosis Neuro: Absent alert, awake or oriented x 3 Comment:: Intubated and sedated Extremities: Present normal inspection; Absent clubbing or cyanosis Psychiatric: Present unable to assess Assessment and Plan *Assessment and plan (1) Acute hypercapnic respiratory failure: Status: Acute Category: Medical Code(s): J96.02 - Acute respiratory failure with hypercapnia (2) Pneumonia: Status: Acute Category: Medical Code(s): J18.9 - Pneumonia, unspecified organism (3) COPD exacerbation: Status: Acute Category: Medical Code(s): J44.1 - Chronic obstructive pulmonary disease with (acute) exacerbation (4) Difficult airway for intubation: Status: Acute Category: Medical Code(s): T88.4XXA - Failed or difficult intubation, initial encounter (5) Glottic edema: Status: Acute Category: Medical Code(s): J38.4 - Edema of larynx Plan Patient altered. Much of the history is obtained from chart review. Ms. Goodwin is a 64-year-old female greater than [id number] smoking history, severe COPD on triple inhaler therapy presented to the ER with worsening respiratory's needing noninvasive ventilator therapy and pulmonary was called for further evaluation and management. Difficulty ventilating this patient despite changing her settings and BiPAP with worsening hypercarbic respiratory failure eventually needing intubation and mechanical ventilatory support. Patient is a very difficult airway. Severe vocal cord on glottic edema noted. No concerning subglottic stenosis appreciated. Afebrile. o evidence of leukocytosis. Chest x-ray upon admission questionable right lower lobe infiltrate. Echo EF at 60%. RV normal size and normal systolic function. Impaired LV relaxation. Interval update: No acute respiratory vents overnight. Stable vent settings. Improving hemodynamics, off pressors. Chest x-ray stable with questionable right lower lobe infiltrate. Continue to receive antibiotics. Afebrile. No evidence of worsening leukocytosis. ET tube close to ned. Will retract back by 2 cm. Tracheal aspirate no organisms seen. Continue to receive methylprednisolone 60 every 6 hours along with famotidine twice daily Auscultation continue to show wheezing, improved from prior. Clarissa improving from prior. Will closely monitor. Will perform SBT again today. Unsuccessful SBT yesterday secondary to low tidal volumes. Received 40 mg IV Lasix yesterday. Slight worsening creatinine about 1.10. Will closely monitor. Adequate urine output now at > 50 cc / hr Plan: Continue Analgo sedation with propofol and fentanyl. Light sedation. Continue mechanical ventilatory support, PEEP of 10 FiO2 of 50% tidal volume of 420 and a rate of 18. Blood gas from this morning improving hypercarbic respiratory failure. Rate decreased to 18. Continue ceftriaxone azithromycin pending culture results DuoNebs every 4 hours along with Pulmicort Q12 scheduled Follow with tracheal aspirate 500 LR bolus -Continue tube feeds. - Continue mechanical ventilatory support - Continue AnalgoSedation with Propofol and Fentanyl with CPOT gal less than or euqal to 2 and RASS goal of to 2 (No need for deep sedation) - VAP bundle Recommend elevate head of the bed at 30 to 45 degrees Recommend oral care with chlorhexidne Recommend GI ulcer prophylaxis - Famotidine 20mg IV BID Recommend chemical DVT prophylaxis Total critical care time spent on this patient is 35 minutes managing acute hypoxic respiratory failure needing mechanical ventilation. This time spent include reviewing test results including interpreting chest x-rays, labs and optimizing the ventilator settings,formulating plan of care, discussing the plan of care with the team and the nursing staff.
[2024-09-01] MEDS: CEFTRIAXONE 1 GM 1 GM in 0.9 % SODIUM CHLORIDE 50 ML IV (09:29)
[2024-09-01] MEDS: ENOXAPARIN 40MG/0.4ML SYRINGE 40 MG SQ ×2 (09:29→21:13)
--- NOTE | 2024-09-01 09:56 | DIET.NUTRFU ---
Patient reached goal rate of 55ml/hr of pulmocare via NG tube. She also received propofol providing 880kcal yesterday, decrease TF to account for continuing propofol to 40ml/hr providing 1440kcal/60.30gm protein and 696ml formula water plus 900ml dqlor=9088lv/day plus medication fluids. renal labs elevated at 38/1.10H, Na 137. Will monitor labs, may need to adjust fluids tomorrow. Nursing indicated they may try to extubate today.
[2024-09-01] MEDS: AZITHROMYCIN 500 MG in 0.9 % SODIUM CHLORIDE 250 ML 250 MG IV (10:07)
--- NOTE | 2024-09-01 11:01 | PC.NURSE ---
SKin assessment at start of shift
[2024-09-01 12:42] LABS: POC Glucose,Bedside 136 (70-110)
[2024-09-01] MEDS: METHYLPREDNISOLONE SOD SUCC 125MG VIAL 60 MG IV ×2 (15:37→21:13)
--- NOTE | 2024-09-01 16:02 | EXP.PN ---
Subjective *Date: 09/01/24 *Time: 16:02 Interval history: Patient is comfortable, intubated and sedated. Exam Data for Last 24 hours Vital signs and Labs for Last 24 Hours: Temp Pulse Resp BP Pulse Ox O2 Del Method FiO2 98.8 F 79 18 104/55 L 97 Mechanical Ventilation 40 09/01/24 12:00 09/01/24 15:00 09/01/24 15:00 09/01/24 15:00 09/01/24 15:00 09/01/24 15:00 09/01/24 14:12 Laboratory Results - last 24 hr 09/01/24 05:03: WBC 6.8, RBC 4.74, Hgb 14.1, Hct 43.4, MCV 91.6, MCH 29.8, MCHC 32.6, RDW 14.2, Plt Count 293, MPV 8.8, Neut % (Auto) 73.7, Lymph % (Auto) 10.3, [place] % (Auto) 14.1 H, Eos % (Auto) 0.7, Baso % (Auto) 1.3, Neut # (Auto) 5.0, Lymph # (Auto) 0.7, [place] # (Auto) 1.0, Eos # (Auto) 0.1, Baso # (Auto) 0.1, Sodium 137, Potassium 3.5, Chloride 100, Carbon Dioxide 34 H, Anion Gap 6.5, BUN 38 H D, Creatinine 1.10 H D, Estimated Creat Clear 36, Estimated GFR 50 L, Est GFR ( Amer) 61 D, Glucose 178 H, Calcium 8.8, Magnesium 2.4 H 09/01/24 05:47: POC Glucose 168 H 09/01/24 12:28: POC Glucose 136 H I & O for Last 24 hours: Intake & Output 08/29/24 08/30/24 08/31/24 09/01/24 23:59 23:59 23:59 23:59 Intake Total 824.078 / 193.585 0322.495 / 8874.567 0556.544 / 2357.544 Output Total 1849 / 1974 2485 / 2545 893 / 893 Balance -1025.922 / -1150.922 -578.505 / -211.803 5383.544 / 1464.544 Weight 113.398 kg 113 kg 104.043 kg Microbiology Reports for the Last 24 Hours: Microbiology 08/30/24 13:43 Sputum - Endotracheal Tube Aspirate Gram Stain - Final 08/30/24 13:43 Sputum - Endotracheal Tube Aspirate Sputum Culture - Final 08/30/24 08:15 Blood Blood Culture - Preliminary NO GROWTH AFTER 48 HOURS 08/30/24 07:40 Blood Blood Culture - Preliminary NO GROWTH AFTER 48 HOURS Constitutional Constitutional: no acute distress and obese Comments: Intubated and sedated. *Routine HEENT Exam Head: Present normocephalic Eye: Present EOMI and PERRL ENT: Present mucous membranes moist *Routine Neck Exam Neck: Present supple; Absent lymphadenopathy *Routine Respiratory Exam Respiratory: Present CTA bilaterally *Routine Cardiovascular Exam Cardiovascular: Present RRR *Routine Abdominal Exam Abdominal: Present soft and normoactive bowel sounds; Absent tenderness *Routine Extremities Exam Extremities: Absent cyanosis, clubbing or edema *Routine Skin Exam Skin: Present warm; Absent rash Assessment and Plan *Assessment and plan (1) Glottic edema: Status: Acute Category: Medical Code(s): J38.4 - Edema of larynx (2) Difficult airway for intubation: Status: Acute Category: Medical Code(s): T88.4XXA - Failed or difficult intubation, initial encounter (3) COPD exacerbation: Status: Acute Category: Medical Code(s): J44.1 - Chronic obstructive pulmonary disease with (acute) exacerbation (4) Pneumonia: Status: Acute Category: Medical Code(s): J18.9 - Pneumonia, unspecified organism (5) Acute hypercapnic respiratory failure: Status: Acute Category: Medical Code(s): J96.02 - Acute respiratory failure with hypercapnia (6) Acute respiratory distress: Status: Acute Category: Medical Code(s): R06.03 - Acute respiratory distress (7) Acute hypoxic respiratory failure: Status: Acute Category: Medical Code(s): J96.01 - Acute respiratory failure with hypoxia (8) Acute exacerbation of chronic obstructive airways disease: Status: Acute Category: Medical Code(s): J44.1 - Chronic obstructive pulmonary disease with (acute) exacerbation (9) Exposure to COVID-19 virus: Status: Acute Category: Medical Code(s): Z20.822 - Contact with and (suspected) exposure to COVID-19 Plan Jasmin Goodwin is a 64-year-old female with a medical history significant for COPD who presents with worsening shortness of breath over the last day. By the time I was able to interview the patient, she was already sedated and intubated. Most history was obtained through chart review. Per daughter, patient stated that she was not feeling well last night and that she could not breathe. Daughter states patient has severe COPD . When she arrived to the ED, patient had significant increased work of breathing with shallow respirations. She was given Solu-Medrol, continuous albuterol, and BiPAP initially. Initial ABG pH 7.17 pCO2 84. Repeat ABG after BiPAP revealed worsening pH 7.11 pCO2 121.7. I contacted our ornamental metal worker who came to bedside and performed intubation. It was noticed that she had severe vocal cord and glottic edema, with no concerning subglottic stenosis appreciated. Throughout this course, case was discussed with the ED provider and decision was made to admit patient for acute on chronic hypercapnic respiratory failure secondary to COPD exacerbation. #Acute hypercarbic respiratory failure #Severe COPD exacerbation #Severe vocal cord, glottic edema versus fatty tissue #Community-acquired pneumonia #Mechanical ventilation ? Patient continues to be stable on mechanical ventilation, sedation. No acute overnight events. ? ABG this morning pH 7.47, pCO2 is 37.6, pO2 76.8. Respiratory rate reduced to 18, tidal volume reduced to 420. Procalcitonin normal. ? Continue mechanical ventilation with settings PEEP 10, FiO2 50%, tidal volume 420, respiratory rate 18. ? Continue propofol, fentanyl. Levophed as needed for hypotension in the setting of sedation. ? CXR revealed right perihilar opacity suggestive of pneumonia. Respiratory panel negative for COVID-19, influenza. ? Ceftriaxone, azithromycin day 3. ? Follow-up blood, sputum cultures. ? DuoNebs every 4 hours, Pulmicort twice daily. ? Solu-Medrol 60 mg every 6 hours. ? IV famotidine for GI ulcer prophylaxis. ? Lovenox for DVT prophylaxis. ? Perales in place, making appropriate urine. NG tube in place. ? Consider IM epinephrine if there are signs of worsening swelling or anaphylaxis. ? Pulmonology following, appreciate efforts and recommendations. Plan to do daily SBTs, were able to turn off propofol with minimal fentanyl today. Plan to extubate Thursday. #Intertrigo ? Nystatin as needed. #Obesity ? Complicates all aspects of care. Full code DVT prophylaxis: Lovenox
--- NOTE | 2024-09-01 17:24 | PC.NURSE ---
pt has been off sedation since around 1230, still unable to do SBT/breathing on own. pt awakens to voice and will follow some commands like to raise her arm but wont take a deep breath when asked, holds eye contact <5 seconds then gazes off. vss. pt reamins afebrile. resistive to oral suctioning and oral care when not sedated and will periodically cough against tube/ventilator. q2 turns. daughter and friend have been at bs earlier in shift. rt currently at bs to attempt SBT, if unsuccessful then sedation will be restarted.
--- NOTE | 2024-09-01 17:37 | PC.NURSE ---
1735 RT at bedside attempting SBT at this time. no respiratory effort initiated by pt at time of attempt. sedation restarted at this time.
[2024-09-01] MEDS: FENTANYL CITRATE/PF 1,000 MCG in 0.9 % SODIUM CHLORIDE 80 ML 1.25 MCG IV (17:43)
[2024-09-01 17:56] LABS: POC Glucose,Bedside 134 (70-110)
[2024-09-01] MEDS: propofoL 100 ML 35 MG IV (21:12)
[2024-09-01] MEDS: FAMOTIDINE 20MG/2ML VIAL 20 MG IV (21:13)
[2024-09-01] MEDS: PANTOPRAZOLE 40MG VIAL 40 MG IV (21:13)
[2024-09-02] VITALS (33 sets, daily range): BP systolic 115–167; BP diastolic 55–99; PULSE 56–100; RESP 18–23; TEMP 36.8–37.7; O2SAT 95–98; BMI 45.6
[2024-09-02] MEDS: humaLOG 100 UNITS/ML 10ML VIAL (SSI) SQ (00:15)
[2024-09-02 00:20] LABS: POC Glucose,Bedside 153 (70-110)
[2024-09-02] MEDS: propofoL 100 ML 35 MG IV ×2 (02:14→05:59)
[2024-09-02] MEDS: IPRATROPIUM/ALBUTEROL 3 ML NEB IH ×5 (02:17→22:23)
[2024-09-02] MEDS: METHYLPREDNISOLONE SOD SUCC 125MG VIAL 60 MG IV (05:41)
--- NOTE | 2024-09-02 06:00 | XR_ITS ---
PROCEDURE INFORMATION: Exam: XR Chest Exam date and time: 09/02/2024 5:54 AM Age: 64 years old Clinical indication: Device placement; Ett placement (vent status); Additional info: Pneumonia mechanical ventilation TECHNIQUE: Imaging protocol: Radiologic exam of the chest. Views: 1 view. COMPARISON: CR XR CHEST PORTABLE 09/01/2024 5:48 AM FINDINGS: Tubes, catheters and devices: Endotracheal tube at the level of the ned. Enteric tube traverses midline, catheter tip not within field of view, however travels subdiaphragmatically. Lungs: Atelectasis/scarring at the lung bases. Pleural spaces: Unremarkable. No pleural effusion. No pneumothorax. Heart/Mediastinum: Unremarkable. No cardiomegaly. Bones/joints: Diffuse degenerative change of the visualized osseous structures. IMPRESSION: Medical devices as above, consider retraction of the endotracheal tube.
[2024-09-02 06:08] LABS: POC Glucose,Bedside 140 (70-110)
[2024-09-02 06:30] LABS: Basophils % 0.2 % (0.1-2.0); Eosinophils % 0.2 % (0.1-12.0); Hematocrit 43.8 % (37.0-47.0); Hemoglobin 14.3 g/dL (12.2-16.2); Lymphocytes # 1.1 K/mm3 (0.7-4.5); Lymphocytes % 9.5 % (10-50); Mean Corpuscular HGB Conc 32.6 g/dL (31.8-35.4); Mean Corpuscular Hemoglobin 30.4 pg (27.0-31.2); Mean Corpuscular Volume 93.5 fl (81-99); Mean Platelet Volume 9.2 fl (7.4-10.4); Monocytes # 0.9 K/mm3 (0.1-1.0); Monocytes % 7.9 % (1.7-9.3); Neutrophils # 9.4 K/mm3 (1.8-7.8); Neutrophils % 82.2 % (37.0-80.0); Platelet Count 239 K/mm3 (142-424); Red Blood Count 4.69 M/mm3 (4.20-5.40); Red Cell Distribution Width 14.1 % (11.5-17.5); White Blood Count 11.4 K/mm3 (4.8-10.8)
[2024-09-02 06:37] LABS: Chloride 106 mmol/L (98-107); Potassium 4.7 mmoL/L (3.5-5.1); Sodium 139 mmol/L (136-145)
[2024-09-02 06:40] LABS: Anion Gap 8.7 mEq/L (5-15); Blood Urea Nitrogen 48 mg/dl (7-17); Calcium 8.7 mg/dl (8.4-10.2); Carbon Dioxide 29 mmol/L (22.0-30.0); Creatinine Clearance Estimated 40 mL/min (50-200); Estimated Glomerular Filt Rate 56 ml/min (>60); GFR (African American) 68 ML/MIN (>60); Glucose 142 mg/dl (74-100)
[2024-09-02] MEDS: BUDESONIDE 0.5MG/2ML NEB 0.5 MG IH ×2 (06:40→18:05)
--- NOTE | 2024-09-02 07:43 | EXP.PULM.PN ---
Subjective *Date: 09/02/24 *Time: 08:35 Interval history: No acute respiratory vents overnight. Stable ventilator settings. Pulmonology Exam Inpatient Vital signs and Labs for Last 24 Hours: Temp Pulse Resp BP Pulse Ox O2 Del Method FiO2 98.9 F 80 18 138/74 97 Mechanical Ventilation 40 09/02/24 04:00 09/02/24 07:00 09/02/24 07:00 09/02/24 07:00 09/02/24 07:00 09/02/24 07:00 09/02/24 07:00 Laboratory Results - last 24 hr 09/01/24 12:28: POC Glucose 136 H 09/01/24 17:49: POC Glucose 134 H 09/02/24 00:10: POC Glucose 153 H 09/02/24 05:27: WBC 11.4 H D, RBC 4.69, Hgb 14.3, Hct 43.8, MCV 93.5, MCH 30.4, MCHC 32.6, RDW 14.1, Plt Count 239, MPV 9.2, Neut % (Auto) 82.2 H, Lymph % (Auto) 9.5 L, [place] % (Auto) 7.9, Eos % (Auto) 0.2, Baso % (Auto) 0.2, Neut # (Auto) 9.4 H, Lymph # (Auto) 1.1, [place] # (Auto) 0.9, Eos # (Auto) 0.0, Baso # (Auto) 0.0, Sodium 139, Potassium 4.7 D, Chloride 106, Carbon Dioxide 29, Anion Gap 8.7, BUN 48 H D, Creatinine 1.00, Estimated Creat Clear 40, Estimated GFR 56 L, Est GFR ( Amer) 68, Glucose 142 H, Calcium 8.7 09/02/24 05:59: POC Glucose 140 H Temp Pulse Resp BP Pulse Ox O2 Del Method FiO2 98.6 F 98 H 20 109/90 L 98 BiPAP 80 08/30/24 10:21 08/30/24 10:30 08/30/24 10:30 08/30/24 10:30 08/30/24 10:30 08/30/24 10:30 08/30/24 08:00 Laboratory Results - last 24 hr 08/30/24 07:07: WBC 7.9, RBC 5.01, Hgb 15.1, Hct 49.3 H, MCV 98.4, MCH 30.1, MCHC 30.6 L, RDW 14.2, Plt Count 270, MPV 8.4, Neut % (Auto) 75.1, Lymph % (Auto) 17.9, [place] % (Auto) 5.9, Eos % (Auto) 0.4, Baso % (Auto) 0.7, Neut # (Auto) 6.0, Lymph # (Auto) 1.4, [place] # (Auto) 0.5, Eos # (Auto) 0.0, Baso # (Auto) 0.1, Sodium 136, Potassium 5.2 H, Chloride 96 L, Carbon Dioxide 38 H, Anion Gap 7.2, BUN 15, Creatinine 0.90, Estimated Creat Clear 42, Estimated GFR 63, Est GFR ( Amer) 77, Glucose 154 H, Calcium 9.0, Total Bilirubin 0.4, AST 98 H, ALT 100 H, Alkaline Phosphatase 192 H, Troponin I 0.02, NT-Pro-B Natriuret Pep 2710 H, Total Protein 7.9, Albumin 4.3, Globulin 3.6 H, Albumin/Globulin Ratio 1.2, HIV 1&2 Antibody Rapid Nonreactive 08/30/24 07:08: Specimen Source Left radial, O2 % 100%, ABG pH 7.17 L*, ABG pCO2 84.0 H, ABG pO2 83.6, ABG HCO3 30.1 H, ABG Total CO2 32.7 H, ABG O2 Saturation 95, ABG Base Excess 1.6, Oliverio Test Acceptable 08/30/24 08:21: SARS-CoV-2 (PCR) Not detected, Influenza A Untype (PCR) Not detected, Influenza Type B (PCR) Not detected 08/30/24 09:16: VBG pH 7.12 L, VBG pCO2 104.6 H, VBG pO2 95.3 H, VBG HCO3 33.5 H, VBG Total CO2 36.7 H, VBG O2 Saturation 96.1 H, VBG Base Excess 4.2 H, VBG Lactic Acid 0.9 08/30/24 10:00: Troponin I 0.02 08/30/24 10:39: Specimen Source l radial, O2 % 70, ABG pH 7.11 L*, ABG pCO2 121.7 H, ABG pO2 191.2 H, ABG HCO3 37.8 H, ABG Total CO2 41.5 H, ABG O2 Saturation 99, ABG Base Excess 8.3 H, Oliverio Test aceptable, ABG Lactate 0.9, Vent Rate 24, Tidal Volume 30/12 I & O for Labs for Last 24 Hours: Intake & Output 08/30/24 08/31/24 09/01/24 09/02/24 23:59 23:59 23:59 23:59 Intake Total 824.078 / 934.697 4925.495 / 6519.217 3796.704 / 3140.704 618 / 618 Output Total 1849 / 1975 2485 / 2545 1683 / 1808 1025 / 1025 Balance -1025.922 / -1150.922 -578.505 / -468.158 2843.704 / 1332.704 -407 / -407 Weight 250 lb 249 lb 1.957 oz 229 lb 6 oz 232 lb 3.759 oz Intake & Output 08/27/24 08/28/24 08/29/24 08/30/24 23:59 23:59 23:59 23:59 Intake Total 0.850 / 0.850 Balance 0.850 / 0.850 Weight 250 lb Microbiology Reports for the Last 24 Hours: Microbiology 08/30/24 13:43 Sputum - Endotracheal Tube Aspirate Gram Stain - Final 08/30/24 13:43 Sputum - Endotracheal Tube Aspirate Sputum Culture - Final 08/30/24 08:15 Blood Blood Culture - Preliminary NO GROWTH AFTER 48 HOURS 08/30/24 07:40 Blood Blood Culture - Preliminary NO GROWTH AFTER 48 HOURS Constitutional: Present severe distress Comment:: Intubated and Sedated Head: Present normocephalic and atraumatic Neck: Present normal inspection and trachea midline Respiratory: Present patient mechanically ventilated, prolonged expiratory phase, respiratory distress, rhonchi and wheezes Cardiac: Present S1/S2 and Tachycardia GI: Present soft and distention; Absent tenderness Comments:: Abdominal scars noted Skin: Present intact; Absent cyanosis Neuro: Absent alert, awake or oriented x 3 Comment:: Intubated and sedated Extremities: Present normal inspection; Absent clubbing or cyanosis Psychiatric: Present unable to assess Assessment and Plan *Assessment and plan (1) Acute hypercapnic respiratory failure: Status: Acute Category: Medical Code(s): J96.02 - Acute respiratory failure with hypercapnia (2) Pneumonia: Status: Acute Category: Medical Code(s): J18.9 - Pneumonia, unspecified organism (3) COPD exacerbation: Status: Acute Category: Medical Code(s): J44.1 - Chronic obstructive pulmonary disease with (acute) exacerbation (4) Difficult airway for intubation: Status: Acute Category: Medical Code(s): T88.4XXA - Failed or difficult intubation, initial encounter (5) Glottic edema: Status: Acute Category: Medical Code(s): J38.4 - Edema of larynx Plan Patient altered. Much of the history is obtained from chart review. Ms. Goodwin is a 64-year-old female greater than [id number] smoking history, severe COPD on triple inhaler therapy presented to the ER with worsening respiratory's needing noninvasive ventilator therapy and pulmonary was called for further evaluation and management. Difficulty ventilating this patient despite changing her settings and BiPAP with worsening hypercarbic respiratory failure eventually needing intubation and mechanical ventilatory support. Patient is a very difficult airway. Severe vocal cord on glottic edema noted. No concerning subglottic stenosis appreciated. Afebrile. o evidence of leukocytosis. Chest x-ray upon admission questionable right lower lobe infiltrate. Echo EF at 60%. RV normal size and normal systolic function. Impaired LV relaxation. Interval update: No acute respiratory events overnight. Stable ventilator requirements. FiO2 decreased to 35%. Slight worsening leukocytosis, will monitor. Otherwise hemodynamic stable and afebrile. Continue to receive ceftriaxone azithromycin. Chest x-ray from this morning, no acute infiltrates concerning. Tracheal aspirate no organisms seen. Culture normal marnie. Stable/improving renal function. Plan: Continue Analgo sedation with propofol and fentanyl. Light sedation. Continue mechanical ventilatory support, PEEP of 10 FiO2 of 35% tidal volume of 420 and a rate of 18. Blood gas from this morning improving hypercarbic respiratory failure. Rate decreased to 18. Continue ceftriaxone azithromycin for a total of 5 days DuoNebs every 4 hours along with Pulmicort Q12 scheduled Discontinue steroids -Continue tube feeds. - Continue mechanical ventilatory support - Continue AnalgoSedation with Propofol and Fentanyl with CPOT gal less than or euqal to 2 and RASS goal of to 2 (No need for deep sedation) - VAP bundle Recommend elevate head of the bed at 30 to 45 degrees Recommend oral care with chlorhexidne Recommend GI ulcer prophylaxis - Famotidine 20mg IV BID Recommend chemical DVT prophylaxis Total critical care time spent on this patient is 35 minutes managing acute hypoxic respiratory failure needing mechanical ventilation. This time spent include reviewing test results including interpreting chest x-rays, labs and optimizing the ventilator settings,formulating plan of care, discussing the plan of care with the team and the nursing staff.
[2024-09-02] MEDS: ENOXAPARIN 40MG/0.4ML SYRINGE 40 MG SQ ×2 (08:34→21:01)
[2024-09-02] MEDS: CEFTRIAXONE 1 GM 1 GM in 0.9 % SODIUM CHLORIDE 50 ML IV (08:34)
--- NOTE | 2024-09-02 08:44 | PC.NURSE ---
AROUND 0800, MD BELTRAN AND RT AT BEDSIDE. INSTRUCTED TO PUT PROPOFOL ON STANDBY, AND DECREASE FENTANYL TO 10MCG/HOUR. PATIENT AWAKENS TO NAME DURING THIS ASSESSMENT, ABLE TO FOLLOW SOME COMMANDS IN WIDENING EYES AND LIFTING FEET. PATIENT IS A TAD BIT ANXIOUS AND COUGHING, MD DEEP SUCTIONED. REASSURANCE GIVEN TO PATIENT, PATIENT ABLE TO CALM HERSELF AND REST. SLEEPING COMFORTABLY AT THIS TIME. VSS.
--- NOTE | 2024-09-02 09:20 | PC.NURSE ---
GASTRIC RESIDUAL VOLUME CHECKED AT 0915. 10ML OF RESIDUAL, RETURNED TO PATIENT. TOLERATING TUBE FEEDS WELL.
[2024-09-02] MEDS: AZITHROMYCIN 500 MG in 0.9 % SODIUM CHLORIDE 250 ML 250 MG IV (09:26)
--- NOTE | 2024-09-02 10:52 | XR_ITS ---
PROCEDURE INFORMATION: Exam: XR Chest Exam date and time: 09/02/2024 12:12 PM Age: 64 years old Clinical indication: Device placement; Picc; Additional info: Confirm picc line placement TECHNIQUE: Imaging protocol: Radiologic exam of the chest. Views: 1 view. COMPARISON: CR XR CHEST PORTABLE 09/02/2024 5:54 AM FINDINGS: Tubes, catheters and devices: Endotracheal tube terminates in the right mainstem bronchus and needs to be withdrawn 5 cm. A left peripherally inserted central venous catheter lies with its tip in the superior vena cava. An enteric feeding tube is present, with its tip located in the stomach in good position. Lungs: Unremarkable. No consolidation. Pleural spaces: Unremarkable. No pleural effusion. No pneumothorax. Heart/Mediastinum: Unremarkable. No cardiomegaly. Bones/joints: Unremarkable. IMPRESSION: Endotracheal tube terminates in the right mainstem bronchus and needs to be withdrawn 5 cm. THIS REPORT CONTAINS FINDINGS THAT MAY BE CRITICAL TO PATIENT CARE. The findings were verbally communicated via telephone conference with Prudencio Sandhu at 12:51 PM EDT on 09/02/2024. The findings were acknowledged and understood.
--- NOTE | 2024-09-02 11:00 | PC.NURSE ---
PATIENT HAD POSSIBLE 14 BEAT RUN OF VTACH. PATIENT WAS AGITATED AND COUGHING AT TIME OF RUN. STRIP PRINTED AND GIVEN TO MD CRISTINA. NNO, JUST MONITOR AT THIS TIME.
--- NOTE | 2024-09-02 11:22 | PC.NURSE ---
SURGERY HERE FOR PICC LINE INSERTION AT THIS TIME.
[2024-09-02] MEDS: FENTANYL CITRATE/PF 1,000 MCG in 0.9 % SODIUM CHLORIDE 80 ML 2.5 MCG IV (11:45)
[2024-09-02 12:29] LABS: POC Glucose,Bedside 127 (70-110)
--- NOTE | 2024-09-02 14:34 | PC.NURSE ---
TUBE FEED TUBING CHANGED AT 1400. PATIENT TURNED TO LEFT SIDE. TOLERATED WELL. VSS.
[2024-09-02] MEDS: propofoL 100 ML 23.81 MG IV ×2 (14:57→18:58)
--- NOTE | 2024-09-02 15:18 | DIET.NUTRFU ---
Spoke to nursing plane to have stay to Thursday and probably have Trach placed. Tolerating TF with minimal residuals. Labs reviewed. No BM noted. Receiving propofol, 09/01:408.13ul=610vaos/day will continue continue TF order.
--- NOTE | 2024-09-02 16:10 | EXP.PN ---
Subjective *Date: 09/02/24 *Time: 16:10 Interval history: Intubated and sedated, comfortable. ET retracted 3 cm after CXR revealed right main bronchus stem. Exam Data for Last 24 hours Vital signs and Labs for Last 24 Hours: Temp Pulse Resp BP Pulse Ox O2 Del Method FiO2 98.7 F 70 18 147/73 H 96 Mechanical Ventilation 35 09/02/24 12:00 09/02/24 15:00 09/02/24 15:00 09/02/24 15:00 09/02/24 15:00 09/02/24 15:00 09/02/24 15:00 Laboratory Results - last 24 hr 09/01/24 17:49: POC Glucose 134 H 09/02/24 00:10: POC Glucose 153 H 09/02/24 05:27: WBC 11.4 H D, RBC 4.69, Hgb 14.3, Hct 43.8, MCV 93.5, MCH 30.4, MCHC 32.6, RDW 14.1, Plt Count 239, MPV 9.2, Neut % (Auto) 82.2 H, Lymph % (Auto) 9.5 L, [place] % (Auto) 7.9, Eos % (Auto) 0.2, Baso % (Auto) 0.2, Neut # (Auto) 9.4 H, Lymph # (Auto) 1.1, [place] # (Auto) 0.9, Eos # (Auto) 0.0, Baso # (Auto) 0.0, Sodium 139, Potassium 4.7 D, Chloride 106, Carbon Dioxide 29, Anion Gap 8.7, BUN 48 H D, Creatinine 1.00, Estimated Creat Clear 40, Estimated GFR 56 L, Est GFR ( Amer) 68, Glucose 142 H, Calcium 8.7 09/02/24 05:59: POC Glucose 140 H 09/02/24 12:20: POC Glucose 127 H I & O for Last 24 hours: Intake & Output 08/30/24 08/31/24 09/01/24 09/02/24 23:59 23:59 23:59 23:59 Intake Total 824.078 / 681.837 8248.495 / 8812.379 4908.704 / 3140.704 1475.00 / 1475.00 Output Total 1849 2485 / 2545 1683 / 1808 1437 / 1437 Balance -1025.922 / -1150.922 -578.505 / -367.482 0204.704 / 1332.704 38.00 / 38.00 Weight 113.398 kg 113 kg 104.043 kg 105.34 kg Microbiology Reports for the Last 24 Hours: Microbiology 08/30/24 14:20 Urine,Clean Catch Urine Culture - Final No growth. Constitutional Constitutional: no acute distress and obese Comments: Intubated and sedated. *Routine HEENT Exam Head: Present normocephalic Eye: Present EOMI and PERRL ENT: Present mucous membranes moist *Routine Neck Exam Neck: Present supple; Absent lymphadenopathy *Routine Respiratory Exam Respiratory: Present CTA bilaterally *Routine Cardiovascular Exam Cardiovascular: Present RRR *Routine Abdominal Exam Abdominal: Present soft and normoactive bowel sounds; Absent tenderness *Routine Extremities Exam Extremities: Absent cyanosis, clubbing or edema *Routine Skin Exam Skin: Present warm; Absent rash Assessment and Plan *Assessment and plan (1) Glottic edema: Status: Acute Category: Medical Code(s): J38.4 - Edema of larynx (2) Difficult airway for intubation: Status: Acute Category: Medical Code(s): T88.4XXA - Failed or difficult intubation, initial encounter (3) COPD exacerbation: Status: Acute Category: Medical Code(s): J44.1 - Chronic obstructive pulmonary disease with (acute) exacerbation (4) Pneumonia: Status: Acute Category: Medical Code(s): J18.9 - Pneumonia, unspecified organism (5) Acute hypercapnic respiratory failure: Status: Acute Category: Medical Code(s): J96.02 - Acute respiratory failure with hypercapnia (6) Acute respiratory distress: Status: Acute Category: Medical Code(s): R06.03 - Acute respiratory distress (7) Acute hypoxic respiratory failure: Status: Acute Category: Medical Code(s): J96.01 - Acute respiratory failure with hypoxia (8) Acute exacerbation of chronic obstructive airways disease: Status: Acute Category: Medical Code(s): J44.1 - Chronic obstructive pulmonary disease with (acute) exacerbation (9) Exposure to COVID-19 virus: Status: Acute Category: Medical Code(s): Z20.822 - Contact with and (suspected) exposure to COVID-19 Plan Jasmin Goodwin is a 64-year-old female with a medical history significant for COPD who presents with worsening shortness of breath over the last day. By the time I was able to interview the patient, she was already sedated and intubated. Most history was obtained through chart review. Per daughter, patient stated that she was not feeling well last night and that she could not breathe. Daughter states patient has severe COPD . When she arrived to the ED, patient had significant increased work of breathing with shallow respirations. She was given Solu-Medrol, continuous albuterol, and BiPAP initially. Initial ABG pH 7.17 pCO2 84. Repeat ABG after BiPAP revealed worsening pH 7.11 pCO2 121.7. I contacted our cupola tapper helper who came to bedside and performed intubation. It was noticed that she had severe vocal cord and glottic edema, with no concerning subglottic stenosis appreciated. Throughout this course, case was discussed with the ED provider and decision was made to admit patient for acute on chronic hypercapnic respiratory failure secondary to COPD exacerbation. #Acute hypercarbic respiratory failure #COPD exacerbation #Severe vocal cord, glottic edema versus fatty tissue #Community-acquired pneumonia #Mechanical ventilation ? Patient continues to be stable on mechanical ventilation, sedation. No acute overnight events. Swelling also seems to be improving on its own. ? CXR after PICC line today revealed endotracheal tube in right main bronchus stem. Retracted 3 cm. ? Continuing to wean vent settings. FiO2 decreased to 35% today. Respiratory rate 18, tidal volume reduced to 420. PEEP 10. ? Continue propofol, fentanyl. Levophed as needed for hypotension in the setting of sedation. ? Continue to wean sedation. Propofol weaned to 35, fentanyl at 25. ? CXR revealed right perihilar opacity suggestive of pneumonia. Respiratory panel negative for COVID-19, influenza. ? Ceftriaxone, azithromycin day 4. ? Follow-up sputum cultures. Blood cultures no growth to date. ? DuoNebs every 4 hours, Pulmicort twice daily. Steroids discontinued. ? IV famotidine for GI ulcer prophylaxis. ? Lovenox for DVT prophylaxis. ? Perales in place, making appropriate urine. ? NG tube in place, continue tube feeds. ? Consider IM epinephrine if there are signs of worsening swelling or anaphylaxis. ? Pulmonology following, appreciate efforts and recommendations. Plan to do daily SBTs, were able to turn off propofol with minimal fentanyl today. Plan to extubate Thursday. ? WBC increased from 6.8-11.4 today, however may be related to steroids which were discontinued today. Follow-up procalcitonin. ? Follow-up morning VBG. #Intertrigo ? Nystatin as needed. #Obesity ? Complicates all aspects of care. Full code DVT prophylaxis: Lovenox
[2024-09-02 16:24] LABS: NT Pro Brain Natriuretic Pep. 342 pg/mL (0-125)
[2024-09-02 16:32] LABS: Procalcitonin 0.099 ng/mL (0.0-2.0)
[2024-09-02] MEDS: SENNOSIDES 8.6MG/DOCUSATE 50MG TABLET 1 TAB PO (16:41)
--- NOTE | 2024-09-02 16:48 | PC.NURSE ---
PATIENT HAS HAD NO ACUTE CHANGES SINCE PRIOR SHIFT. PATIENT REMAINS STABLE ON MECHANICAL VENTILATION. TIDAL VOLUME OF 420, FIO2 35%, RR 18, PEEP OF 10. TUBE FEED TOLERATED AT 40ML/HR AND 150ML FLUSH Q4H. GASTRIC RESIDUALS NOTED TO BE 10ML X2. SEDATION WAS TURNED DOWN THIS MORNING TO ALLOW PATIENT TO PREPARE FOR POSSIBLE SBT. PICC LINE PLACED TO UPPER LEFT ARM. SEDATION INCREASED DURING PROCEDURE AND HAS REMAINED AT THE SAME LEVEL FOR THE REST OF THE SHIFT THUS FAR. PROPOFOL AT 35MCG/HR, FENTANYL 25MCG/HR. DURING DECREASED SEDATION, PATIENT OPENING EYES TO NAME AND FOLLOWING SOME COMMANDS. ON CURRENT SEDATION, PATIENT IS RESTING COMFORTABLY, MINIMAL EYE MOVEMENT TO NAME. PATIENT TURNED TOLERATED. ADEQUATE U/O PER 16FR F/C. DRAINING A DARK YELLOW/GREEN URINE. FAMILY DID VISIT FOR A WHILE THIS MORNING AND UPDATED ON POC. LUNG SOUNDS DIMINISHED PER AUSCULTATION. ET TUBE AT 20CM AT THE GUM. VSS.
[2024-09-02 17:26] LABS: POC Glucose,Bedside 118 (70-110)
--- NOTE | 2024-09-02 17:46 | XR_ITS ---
PROCEDURE INFORMATION: Exam: XR Chest Exam date and time: 09/02/2024 5:55 PM Age: 64 years old Clinical indication: Device placement; Ett placement (vent status); Additional info: Eval et tube TECHNIQUE: Imaging protocol: Radiologic exam of the chest. Views: 1 view. COMPARISON: CR XR CHEST PORTABLE PICC PLAC 09/02/2024 12:12 PM FINDINGS: Tubes, catheters and devices: Endotracheal tube projects over the lower trachea and repositioning may be appropriate, correlate with ventilator function. Lungs: Increasing atelectasis in the left lower lobe. Mild pulmonary edema. Pleural spaces: No large effusion or pneumothorax. Heart/Mediastinum: Stable cardiac and mediastinal contours. Bones/joints: No evidence of acute osseous abnormalities within the visualized portions of the thoracic spine and ribs. Osseous structures appear appropriate for patient age. IMPRESSION: 1. Endotracheal tube projects over the lower trachea and repositioning may be appropriate, correlate with ventilator function. 2. Increasing atelectasis in the left lower lobe.
[2024-09-02] MEDS: PANTOPRAZOLE 40MG VIAL 40 MG IV (21:01)
[2024-09-02] MEDS: FAMOTIDINE 20MG/2ML VIAL 20 MG IV (21:01)
--- NOTE | 2024-09-02 22:13 | XR_ITS ---
PROCEDURE INFORMATION: Exam: XR Chest Exam date and time: 09/02/2024 11:54 PM Age: 64 years old Clinical indication: Device placement; Ett placement (vent status); Additional info: Et tube placement TECHNIQUE: Imaging protocol: Radiologic exam of the chest. Views: 1 view. COMPARISON: CR XR CHEST PORTABLE 09/02/2024 5:55 PM FINDINGS: Tubes, catheters and devices: There is an endotracheal tube in place, tip projects over the mid trachea. There is an enteric tube in place, tip projects below the diaphragm and off the level of the study. There is a left upper extremity PICC, catheter tip projects over the superior vena cava. Lungs: Mild pulmonary edema. Pleural spaces: No large effusion or pneumothorax. Heart/Mediastinum: No evidence of mediastinal widening or cardiac silhouette enlargement; the mediastinum and heart appear within normal limits for contour and size. Bones/joints: No evidence of acute osseous abnormalities within the visualized portions of the thoracic spine and ribs. Osseous structures appear appropriate for patient age. Soft tissues: The chin projects over the patient's upper chest somewhat limiting the study. Other findings: The patient is rotated on the examination which somewhat alters the expected anatomic relationships and limits the study. IMPRESSION: Interval adjustment of endotracheal tube which projects over the mid trachea.
--- NOTE | 2024-09-02 22:14 | PC.NURSE ---
Reparatory at bedside. Verbal orders from Dr. Henry to pull back ET tube to 18cm at the gums. Chest xray order placed per verbal order, and radiology informed of stat imaging.
[2024-09-03] VITALS (40 sets, daily range): BP systolic 114–157; BP diastolic 58–88; PULSE 50–80; RESP 18–20; TEMP 36.6–37.6; O2SAT 91–99; BMI 44.0
[2024-09-03] MEDS: IPRATROPIUM/ALBUTEROL 3 ML NEB IH ×6 (02:21→21:57)
[2024-09-03 02:31] LABS: POC Glucose,Bedside 97 (70-110)
[2024-09-03] MEDS: propofoL 100 ML 23.81 MG IV (04:23)
[2024-09-03 06:52] LABS: Basophils # 0.1 K/mm3 (0-0.2); Basophils % 0.6 % (0.1-2.0); Eosinophils # 0.1 K/mm3 (0.0-0.4); Eosinophils % 0.4 % (0.1-12.0); Hematocrit 43.4 % (37.0-47.0); Hemoglobin 14.1 g/dL (12.2-16.2); Lymphocytes # 3.2 K/mm3 (0.7-4.5); Lymphocytes % 25.9 % (10-50); Mean Corpuscular HGB Conc 32.5 g/dL (31.8-35.4); Mean Corpuscular Hemoglobin 29.8 pg (27.0-31.2); Mean Corpuscular Volume 91.8 fl (81-99); Mean Platelet Volume 8.5 fl (7.4-10.4); Monocytes # 1.2 K/mm3 (0.1-1.0); Monocytes % 9.3 % (1.7-9.3); Neutrophils # 7.9 K/mm3 (1.8-7.8); Neutrophils % 63.8 % (37.0-80.0); Platelet Count 252 K/mm3 (142-424); Red Blood Count 4.72 M/mm3 (4.20-5.40); Red Cell Distribution Width 14.2 % (11.5-17.5); White Blood Count 12.4 K/mm3 (4.8-10.8)
[2024-09-03] MEDS: BUDESONIDE 0.5MG/2ML NEB 0.5 MG IH ×2 (06:58→18:40)
[2024-09-03 07:21] LABS: POC Glucose,Bedside 104 (70-110)
--- NOTE | 2024-09-03 07:49 | XR_ITS ---
PROCEDURE INFORMATION: Exam: XR Chest Exam date and time: 09/03/2024 7:52 AM Age: 64 years old Clinical indication: Device placement; Other: Evaluate et tube TECHNIQUE: Imaging protocol: Radiologic exam of the chest. Views: 1 view. COMPARISON: CR XR CHEST PORTABLE 09/02/2024 11:54 PM FINDINGS: Tubes, catheters and devices: Endotracheal tube terminates 5 cm above the ned in good position. A left peripherally inserted central venous catheter lies with its tip in the superior vena cava. Enteric tube is seen within the stomach Lungs: Atelectasis in the left base Pleural spaces: Unremarkable. No pleural effusion. No pneumothorax. Heart/Mediastinum: Unremarkable. No cardiomegaly. Bones/joints: Unremarkable. IMPRESSION: Endotracheal tube terminates 5 cm above the ned in good position.
[2024-09-03 07:52] LABS: VBG Base Excess 4.6 mmol/L (-2.4-2.3); VBG HCO3 28.1 mmol/L (23-30); VBG Oxygen Saturation 93.9 % (50-70); VBG PCO2 38.5 mmol/L (35-51); VBG PH 7.48 mmol/L (7.31-7.41); VBG PO2 67.7 mmol/L (28-40); VBG Total CO2 29.3 mmol/L (23-27)
[2024-09-03 07:53] LABS: Lactate Venous 2.1 mmol/L (0.4-2.0)
--- NOTE | 2024-09-03 08:19 | XR_ITS ---
PROCEDURE INFORMATION: Exam: XR Chest Exam date and time: 09/03/2024 8:24 AM Age: 64 years old Clinical indication: Device placement; Ett placement (vent status); Additional info: Evaluate et tube TECHNIQUE: Imaging protocol: Radiologic exam of the chest. Views: 1 view. COMPARISON: CR XR CHEST PORTABLE 09/03/2024 7:52 AM FINDINGS: Tubes, catheters and devices: Endotracheal tube terminates 4 cm above the ned in good position. A left peripherally inserted central venous catheter lies with its tip in the superior vena cava. Enteric tube is seen within the stomach Lungs: Atelectasis in the left base Pleural spaces: Unremarkable. No pleural effusion. No pneumothorax. Heart/Mediastinum: Unremarkable. No cardiomegaly. Bones/joints: Unremarkable. IMPRESSION: Endotracheal tube terminates 4 cm above the ned in good position.
[2024-09-03 08:21] LABS: Procalcitonin 0.112 ng/mL (0.0-2.0)
[2024-09-03 08:28] LABS: Chloride 110 mmol/L (98-107); Sodium 140 mmol/L (136-145)
[2024-09-03 08:29] LABS: Potassium 4.1 mmoL/L (3.5-5.1)
[2024-09-03 08:32] LABS: Anion Gap 6.1 mEq/L (5-15); Blood Urea Nitrogen 47 mg/dl (7-17); Calcium 8.8 mg/dl (8.4-10.2); Carbon Dioxide 28 mmol/L (22.0-30.0); Creatinine Clearance Estimated 36 mL/min (50-200); Estimated Glomerular Filt Rate 50 ml/min (>60); GFR (African American) 61 ML/MIN (>60); Glucose 101 mg/dl (74-100)
[2024-09-03] MEDS: CEFTRIAXONE 1 GM 1 GM in 0.9 % SODIUM CHLORIDE 50 ML IV (08:51)
[2024-09-03] MEDS: propofoL 100 ML 27.22 MG IV ×2 (08:53→12:50)
--- NOTE | 2024-09-03 09:13 | P.PN_ITS ---
Subjective *Date: 09/03/24 *Time: 09:13 Medical Exam Vital signs and Labs for Last 24 Hours: Vital Signs Temp Pulse Pulse Resp BP Pulse Ox O2 Del Method 09/03/24 08:00 99.6 F 09/03/24 07:00 69 18 152/88 H 99 Mechanical Ventilation 09/03/24 06:59 70 09/03/24 06:59 75 09/03/24 06:59 18 96 09/03/24 06:00 67 18 152/84 H 96 Mechanical Ventilation 09/03/24 06:00 18 09/03/24 05:00 63 18 142/73 H 93 L Mechanical Ventilation 09/03/24 05:00 Mechanical Ventilation 09/03/24 04:00 61 09/03/24 04:00 99.6 F 69 20 138/74 96 Mechanical Ventilation 09/03/24 03:00 Mechanical Ventilation 09/03/24 03:00 72 18 157/79 H 93 L Mechanical Ventilation 09/03/24 02:24 72 09/03/24 02:24 65 09/03/24 02:24 18 95 09/03/24 02:00 56 L 18 137/72 93 L Mechanical Ventilation 09/03/24 02:00 18 09/03/24 01:00 Mechanical Ventilation 09/03/24 01:00 64 18 132/70 93 L Mechanical Ventilation 09/03/24 00:01 18 96 09/03/24 00:00 62 09/03/24 00:00 99.6 F 59 L 18 129/65 93 L Mechanical Ventilation 09/02/24 23:00 Mechanical Ventilation 09/02/24 23:00 63 18 162/88 H 96 Mechanical Ventilation 09/02/24 22:23 71 09/02/24 22:23 73 09/02/24 22:23 18 96 09/02/24 22:00 18 09/02/24 22:00 75 20 148/80 H 96 Mechanical Ventilation 09/02/24 21:00 Mechanical Ventilation 09/02/24 21:00 70 19 154/82 H 96 Mechanical Ventilation 09/02/24 20:06 18 96 09/02/24 20:00 74 09/02/24 20:00 99.8 F H 73 18 127/72 96 Mechanical Ventilation 09/02/24 19:00 74 18 134/74 95 Mechanical Ventilation 09/02/24 18:33 Mechanical Ventilation 09/02/24 18:06 75 09/02/24 18:06 71 09/02/24 18:06 96 Mechanical Ventilation 09/02/24 18:06 18 96 09/02/24 18:00 84 23 156/87 H 96 Mechanical Ventilation 09/02/24 17:00 Mechanical Ventilation 09/02/24 17:00 67 18 145/72 H 95 Mechanical Ventilation 09/02/24 16:00 60 09/02/24 16:00 96 Mechanical Ventilation 09/02/24 16:00 98.3 F 68 18 122/55 L 96 Mechanical Ventilation 09/02/24 16:00 96 Mechanical Ventilation 09/02/24 15:00 Mechanical Ventilation 09/02/24 15:00 70 18 147/73 H 96 Mechanical Ventilation 09/02/24 14:00 68 20 152/83 H 95 Mechanical Ventilation 09/02/24 13:21 62 09/02/24 13:21 09/02/24 13:00 56 L 18 146/81 H 96 Mechanical Ventilation 09/02/24 13:00 Mechanical Ventilation 09/02/24 12:00 70 09/02/24 12:00 97 Mechanical Ventilation 09/02/24 12:00 98.7 F 68 18 154/81 H 97 Mechanical Ventilation 09/02/24 11:00 Mechanical Ventilation 09/02/24 11:00 70 18 145/82 H 97 Mechanical Ventilation 09/02/24 10:00 73 18 142/79 H 97 Mechanical Ventilation FiO2 09/03/24 08:00 09/03/24 07:00 35 09/03/24 06:59 09/03/24 06:59 09/03/24 06:59 35 09/03/24 06:00 35 09/03/24 06:00 35 09/03/24 05:00 35 09/03/24 05:00 09/03/24 04:00 09/03/24 04:00 35 09/03/24 03:00 09/03/24 03:00 35 09/03/24 02:24 09/03/24 02:24 09/03/24 02:24 36 09/03/24 02:00 35 09/03/24 02:00 35 09/03/24 01:00 09/03/24 01:00 35 09/03/24 00:01 36 09/03/24 00:00 09/03/24 00:00 35 09/02/24 23:00 09/02/24 23:00 35 09/02/24 22:23 09/02/24 22:23 09/02/24 22:23 36 09/02/24 22:00 09/02/24 22:00 35 09/02/24 21:00 09/02/24 21:00 35 09/02/24 20:06 36 09/02/24 20:00 09/02/24 20:00 09/02/24 19:00 09/02/24 18:33 09/02/24 18:06 09/02/24 18:06 09/02/24 18:06 35 09/02/24 18:06 36 09/02/24 18:00 09/02/24 17:00 09/02/24 17:00 35 09/02/24 16:00 09/02/24 16:00 35 09/02/24 16:00 09/02/24 16:00 35 09/02/24 15:00 09/02/24 15:00 35 09/02/24 14:00 35 09/02/24 13:21 09/02/24 13:21 35 09/02/24 13:00 09/02/24 13:00 09/02/24 12:00 09/02/24 12:00 35 09/02/24 12:00 35 09/02/24 11:00 09/02/24 11:00 35 09/02/24 10:00 Intake and Output 09/02/24 09/03/24 09/03/24 23:59 07:59 15:59 Intake Total 820.637 / 2335.637 620 / 720.000 100.000 / 720.000 Output Total 760 / 2197 515 / 515 Balance 60.637 / 138.637 105 / 205.000 100.000 / 205.000 Intake: Intake, Tube Feeding Amount 325 / 967 320 / 320 Intake, Tube Irrigant Amount 300 / 475 300 / 300 Intake, Total IV Amount 195.637 / 893.637 100.000 / 100.000 Output: Output, Urine Amount 215 / 587 Output, Urine Amount (Catheter) 525 / 1590 515 / 515 Perales 525 / 1590 515 / 515 Output, Gastric Drainage Amount 20 / 20 Left Nare 20 / 20 Other: Weight 101.831 kg Patient Weight 09/03/24 23:59 Weight 101.831 kg Laboratory Results - last 24 hr 09/02/24 05:27: NT-Pro-B Natriuret Pep 342 H, Procalcitonin 0.099 09/02/24 12:20: POC Glucose 127 H 09/02/24 17:18: POC Glucose 118 H 09/03/24 00:11: POC Glucose 97 09/03/24 06:00: VBG pH 7.48 H, VBG pCO2 38.5, VBG pO2 67.7 H, VBG HCO3 28.1, VBG Total CO2 29.3 H, VBG O2 Saturation 93.9 H, VBG Base Excess 4.6 H, VBG Lactic Acid 2.1 H 09/03/24 06:30: WBC 12.4 H, RBC 4.72, Hgb 14.1, Hct 43.4, MCV 91.8, MCH 29.8, MCHC 32.5, RDW 14.2, Plt Count 252, MPV 8.5, Neut % (Auto) 63.8, Lymph % (Auto) 25.9, [place] % (Auto) 9.3, Eos % (Auto) 0.4, Baso % (Auto) 0.6, Neut # (Auto) 7.9 H, Lymph # (Auto) 3.2, [place] # (Auto) 1.2 H, Eos # (Auto) 0.1, Baso # (Auto) 0.1, Sodium 140, Potassium 4.1, Chloride 110 H, Carbon Dioxide 28, Anion Gap 6.1, BUN 47 H, Creatinine 1.10 H, Estimated Creat Clear 36, Estimated GFR 50 L, Est GFR ( Amer) 61, Glucose 101 H, Calcium 8.8, Procalcitonin 0.112 09/03/24 07:01: POC Glucose 104 I & O for Labs for Last 24 Hours: Intake & Output 08/31/24 09/01/24 09/02/24 09/03/24 23:59 23:59 23:59 23:59 Intake Total 1906.495 / 4534.044 1539.704 / 3140.704 2295.637 / 2335.637 720.000 / 720.000 Output Total 2485 / 2545 1683 / 1808 2197 / 2197 515 / 515 Balance -578.505 / -722.567 0078.704 / 1332.704 98.637 / 138.637 205.000 / 205.000 Weight 113 kg 104.043 kg 105.34 kg 101.831 kg Microbiology Reports for the Last 24 Hours: Microbiology 08/30/24 08:15 Blood Blood Culture - Preliminary NO GROWTH AFTER 4 DAYS 08/30/24 07:40 Blood Blood Culture - Preliminary NO GROWTH AFTER 4 DAYS 08/30/24 14:20 Urine,Clean Catch Urine Culture - Final No growth. The patient's infection will respond to the chosen ABx?: Yes (SPUTUM = NORMAL MYRNA, URINE AND BLOOD CX NO GROWTH, TMAX 99.8, WBC 12.4) Is the patient receiving the right drug, dose, and route?: Yes Could a more targeted ABx be ordered?: No
--- NOTE | 2024-09-03 09:18 | PC.NURSE ---
Respiratory care note: Placed tidal volume to 390 per
[2024-09-03] MEDS: AZITHROMYCIN 500 MG in 0.9 % SODIUM CHLORIDE 250 ML 250 MG IV (09:25)
[2024-09-03] MEDS: ENOXAPARIN 40MG/0.4ML SYRINGE 40 MG SQ ×2 (09:29→20:39)
[2024-09-03] MEDS: SENNOSIDES 8.6MG/DOCUSATE 50MG TABLET 1 TAB PO ×2 (09:30→20:40)
[2024-09-03 11:54] LABS: Reflex Lactic Add Lactic Reflex
[2024-09-03] MEDS: FENTANYL CITRATE/PF 1,000 MCG in 0.9 % SODIUM CHLORIDE 80 ML 2.5 MCG IV (12:51)
[2024-09-03 13:05] LABS: POC Glucose,Bedside 85 (70-110)
--- NOTE | 2024-09-03 15:25 | P.PN_ITS ---
Subjective *Date: 09/03/24 *Time: 15:25 Interval history: Comfortable, intubated and sedated. Exam Data for Last 24 hours Vital signs and Labs for Last 24 Hours: Temp Pulse Resp BP Pulse Ox O2 Del Method FiO2 98.2 F 62 18 134/76 96 Mechanical Ventilation 35 09/03/24 15:14 09/03/24 15:04 09/03/24 15:00 09/03/24 15:00 09/03/24 15:16 09/03/24 15:00 09/03/24 15:16 Laboratory Results - last 24 hr 09/02/24 05:27: NT-Pro-B Natriuret Pep 342 H, Procalcitonin 0.099 09/02/24 17:18: POC Glucose 118 H 09/03/24 00:11: POC Glucose 97 09/03/24 06:00: VBG pH 7.48 H, VBG pCO2 38.5, VBG pO2 67.7 H, VBG HCO3 28.1, VBG Total CO2 29.3 H, VBG O2 Saturation 93.9 H, VBG Base Excess 4.6 H, VBG Lactic Acid 2.1 H 09/03/24 06:30: WBC 12.4 H, RBC 4.72, Hgb 14.1, Hct 43.4, MCV 91.8, MCH 29.8, MCHC 32.5, RDW 14.2, Plt Count 252, MPV 8.5, Neut % (Auto) 63.8, Lymph % (Auto) 25.9, [place] % (Auto) 9.3, Eos % (Auto) 0.4, Baso % (Auto) 0.6, Neut # (Auto) 7.9 H, Lymph # (Auto) 3.2, [place] # (Auto) 1.2 H, Eos # (Auto) 0.1, Baso # (Auto) 0.1, Sodium 140, Potassium 4.1, Chloride 110 H, Carbon Dioxide 28, Anion Gap 6.1, BUN 47 H, Creatinine 1.10 H, Estimated Creat Clear 36, Estimated GFR 50 L, Est GFR ( Amer) 61, Glucose 101 H, Calcium 8.8, Procalcitonin 0.112 09/03/24 07:01: POC Glucose 104 09/03/24 12:12: Lactate 1.0 09/03/24 12:57: POC Glucose 85 I & O for Last 24 hours: Intake & Output 08/31/24 09/01/24 09/02/24 09/03/24 23:59 23:59 23:59 23:59 Intake Total 1906.495 / 5267.934 0796.704 / 3140.704 2295.637 / 2335.637 1202.814 / 1202.814 Output Total 2485 / 2545 1683 / 1808 2197 / 2197 990 / 990 Balance -578.505 / -051.488 9786.704 / 1332.704 98.637 / 138.637 212.814 / 212.814 Weight 113 kg 104.043 kg 105.34 kg 101.831 kg Microbiology Reports for the Last 24 Hours: Microbiology 08/31/24 10:18 Nose MRSA Culture - Final 08/30/24 08:15 Blood Blood Culture - Preliminary NO GROWTH AFTER 4 DAYS 08/30/24 07:40 Blood Blood Culture - Preliminary NO GROWTH AFTER 4 DAYS Constitutional Constitutional: no acute distress and obese Comments: Intubated and sedated. *Routine HEENT Exam Head: Present normocephalic Eye: Present EOMI and PERRL ENT: Present mucous membranes moist *Routine Neck Exam Neck: Present supple; Absent lymphadenopathy *Routine Respiratory Exam Respiratory: Present CTA bilaterally *Routine Cardiovascular Exam Cardiovascular: Present RRR *Routine Abdominal Exam Abdominal: Present soft and normoactive bowel sounds; Absent tenderness *Routine Extremities Exam Extremities: Absent cyanosis, clubbing or edema *Routine Skin Exam Skin: Present warm; Absent rash Assessment and Plan *Assessment and plan (1) Glottic edema: Status: Acute Category: Medical Code(s): J38.4 - Edema of larynx (2) Difficult airway for intubation: Status: Acute Category: Medical Code(s): T88.4XXA - Failed or difficult intubation, initial encounter (3) COPD exacerbation: Status: Acute Category: Medical Code(s): J44.1 - Chronic obstructive pulmonary disease with (acute) exacerbation (4) Pneumonia: Status: Acute Category: Medical Code(s): J18.9 - Pneumonia, unspecified organism (5) Acute hypercapnic respiratory failure: Status: Acute Category: Medical Code(s): J96.02 - Acute respiratory failure with hypercapnia (6) Acute respiratory distress: Status: Acute Category: Medical Code(s): R06.03 - Acute respiratory distress (7) Acute hypoxic respiratory failure: Status: Acute Category: Medical Code(s): J96.01 - Acute respiratory failure with hypoxia (8) Acute exacerbation of chronic obstructive airways disease: Status: Acute Category: Medical Code(s): J44.1 - Chronic obstructive pulmonary disease with (acute) exacerbation (9) Exposure to COVID-19 virus: Status: Acute Category: Medical Code(s): Z20.822 - Contact with and (suspected) exposure to COVID-19 Plan Jasmin Goodwin is a 64-year-old female with a medical history significant for COPD who presents with worsening shortness of breath over the last day. By the time I was able to interview the patient, she was already sedated and intubated. Most history was obtained through chart review. Per daughter, patient stated that she was not feeling well last night and that she could not breathe. Daughter states patient has severe COPD . When she arrived to the ED, patient had significant increased work of breathing with shallow respirations. She was given Solu-Medrol, continuous albuterol, and BiPAP initially. Initial ABG pH 7.17 pCO2 84. Repeat ABG after BiPAP revealed worsening pH 7.11 pCO2 121.7. I contacted our bus transportation manager who came to bedside and performed intubation. It was noticed that she had severe vocal cord and glottic edema, with no concerning subglottic stenosis appreciated. Throughout this course, case was discussed with the ED provider and decision was made to admit patient for acute on chronic hypercapnic respiratory failure secondary to COPD exacerbation. #Acute hypercarbic respiratory failure #COPD exacerbation #Severe vocal cord, glottic edema versus fatty tissue #Community-acquired pneumonia #Mechanical ventilation ? Patient continues to be stable on mechanical ventilation, sedation. Swelling also seem to have improved on its own, tolerating ET cuffing. ? ET tube was retracted 1 cm overnight. It was inadvertently retracted 2 additional centimeters doing morning CXR, replaced at 18 cm. ? Continuing to wean vent settings. FiO2 to 35% today. Respiratory rate 18, tidal volume reduced to 390. PEEP 10. ? Continue propofol, fentanyl. Levophed as needed for hypotension in the setting of sedation. ? Continue to wean sedation as tolerated. ? CXR revealed right perihilar opacity suggestive of pneumonia. Respiratory panel negative for COVID-19, influenza. ? Ceftriaxone, azithromycin day 5. ? Slight uptrend in WBC from 14.4-12.4 today. No fevers, tachycardia. Procalcitonin also normal. Will continue to monitor. If uptrending, can consider escalating antibiotics. MRSA screen negative. ? Sputum, blood cultures no growth to date. ? DuoNebs every 4 hours, Pulmicort twice daily. Steroids discontinued. ? IV famotidine for GI ulcer prophylaxis. ? Lovenox for DVT prophylaxis. ? Perales in place, making appropriate urine. ? NG tube in place, continue tube feeds. ? Consider IM epinephrine if there are signs of worsening swelling or anaphylaxis. ? Pulmonology following, appreciate efforts and recommendations. Plan to extubate Thursday. #Intertrigo ? Nystatin as needed. #Obesity ? Complicates all aspects of care. Full code DVT prophylaxis: Lovenox
--- NOTE | 2024-09-03 16:00 | PC.NURSE ---
Respiratory care note: Placed tidal volume to 380 per
[2024-09-03] MEDS: propofoL 100 ML 20.41 MG IV ×2 (17:50→22:05)
--- NOTE | 2024-09-03 18:02 | PC.NURSE ---
Patient tolerated vent changes well, tidal volume from 420 to 380, peep 10 fio2 at 35%. VS stable. Patient turned q2. Light sedation, patient able to follow commands but will constantly reach for tubes. Urine output adequate. Lung sounds diminished on right.
[2024-09-03 18:30] LABS: POC Glucose,Bedside 94 (70-110)
[2024-09-03] MEDS: PANTOPRAZOLE 40MG VIAL 40 MG IV (20:39)
[2024-09-03] MEDS: FAMOTIDINE 20MG/2ML VIAL 20 MG IV (20:39)
[2024-09-04] VITALS (35 sets, daily range): BP systolic 106–148; BP diastolic 58–89; PULSE 57–76; RESP 16–20; TEMP 36.7–37.7; O2SAT 92–99; BMI 46.1
[2024-09-04] MEDS: IPRATROPIUM/ALBUTEROL 3 ML NEB IH ×6 (01:05→21:46)
[2024-09-04] MEDS: propofoL 100 ML 20.41 MG IV (02:40)
[2024-09-04 05:53] LABS: POC Glucose,Bedside 91 (70-110)
[2024-09-04 05:53] LABS: POC Glucose,Bedside 85 (70-110)
[2024-09-04 05:58] LABS: Basophils # 0.1 K/mm3 (0-0.2); Basophils % 0.9 % (0.1-2.0); Eosinophils # 0.2 K/mm3 (0.0-0.4); Eosinophils % 1.9 % (0.1-12.0); Hematocrit 41.4 % (37.0-47.0); Hemoglobin 13.8 g/dL (12.2-16.2); Lymphocytes # 2.6 K/mm3 (0.7-4.5); Lymphocytes % 24.2 % (10-50); Mean Corpuscular HGB Conc 33.2 g/dL (31.8-35.4); Mean Corpuscular Hemoglobin 31.1 pg (27.0-31.2); Mean Corpuscular Volume 93.8 fl (81-99); Monocytes # 1.2 K/mm3 (0.1-1.0); Monocytes % 11.1 % (1.7-9.3); Neutrophils # 6.6 K/mm3 (1.8-7.8); Platelet Count 225 K/mm3 (142-424); Red Blood Count 4.42 M/mm3 (4.20-5.40); White Blood Count 10.7 K/mm3 (4.8-10.8)
--- NOTE | 2024-09-04 06:00 | XR_ITS ---
PROCEDURE INFORMATION: Exam: XR Chest Exam date and time: 09/04/2024 5:44 AM Age: 64 years old Clinical indication: Condition or disease; Other: Pneumonia mechanical ventilation TECHNIQUE: Imaging protocol: Radiologic exam of the chest. Views: 1 view. COMPARISON: CR XR CHEST PORTABLE 09/03/2024 8:24 AM FINDINGS: Tubes, catheters and devices: The ET tube, central venous catheter, and nasogastric tube are in good position. Lungs: Left lower lobe atelectasis. Hypoinflation. Pleural spaces: Unremarkable. No pleural effusion. No pneumothorax. Heart/Mediastinum: Unremarkable. No cardiomegaly. Bones/joints: Unremarkable. IMPRESSION: The ET tube, central venous catheter, and nasogastric tube are in good position. Left lower lobe atelectasis. Hypoinflation.
[2024-09-04 06:02] LABS: Chloride 108 mmol/L (98-107); Potassium 4.6 mmoL/L (3.5-5.1); Sodium 138 mmol/L (136-145)
[2024-09-04 06:05] LABS: Anion Gap 8.6 mEq/L (5-15); Blood Urea Nitrogen 38 mg/dl (7-17); Carbon Dioxide 26 mmol/L (22.0-30.0); Creatinine Clearance Estimated 40 mL/min (50-200); Estimated Glomerular Filt Rate 63 ml/min (>60); GFR (African American) 77 ML/MIN (>60)
[2024-09-04 06:06] LABS: Calcium 8.2 mg/dl (8.4-10.2); Glucose 100 mg/dl (74-100)
[2024-09-04] MEDS: BUDESONIDE 0.5MG/2ML NEB 0.5 MG IH ×2 (06:46→18:07)
[2024-09-04] MEDS: CEFTRIAXONE 1 GM 1 GM in 0.9 % SODIUM CHLORIDE 50 ML IV (08:36)
[2024-09-04] MEDS: ENOXAPARIN 40MG/0.4ML SYRINGE 40 MG SQ ×2 (08:38→21:09)
[2024-09-04] MEDS: SENNOSIDES 8.6MG/DOCUSATE 50MG TABLET 1 TAB PO (08:38)
[2024-09-04] MEDS: AZITHROMYCIN 500 MG in 0.9 % SODIUM CHLORIDE 250 ML 250 MG IV (09:18)
[2024-09-04 09:57] LABS: Lactate Venous 1.1 mmol/L (0.4-2.0); VBG Base Excess -0.1 mmol/L (-2.4-2.3); VBG HCO3 24.3 mmol/L (23-30); VBG Oxygen Saturation 88.6 % (50-70); VBG PCO2 38.3 mmol/L (35-51); VBG PH 7.42 mmol/L (7.31-7.41); VBG PO2 55.7 mmol/L (28-40); VBG Total CO2 25.5 mmol/L (23-27)
[2024-09-04] MEDS: propofoL 100 ML 27.22 MG IV ×2 (11:40→15:43)
--- NOTE | 2024-09-04 12:30 | P.PN_ITS ---
Subjective *Date: 09/04/24 *Time: 12:30 Interval history: Patient continues to be comfortable, intubated and sedated. No acute overnight events. Exam Data for Last 24 hours Vital signs and Labs for Last 24 Hours: Temp Pulse Resp BP Pulse Ox O2 Del Method FiO2 99.2 F 73 18 143/85 H 94 L Mechanical Ventilation 35 09/04/24 12:00 09/04/24 11:00 09/04/24 11:00 09/04/24 11:00 09/04/24 11:00 09/04/24 11:00 09/04/24 10:17 Laboratory Results - last 24 hr 09/03/24 12:12: Lactate 1.0 09/03/24 12:57: POC Glucose 85 09/03/24 18:17: POC Glucose 94 09/04/24 01:30: POC Glucose 91 09/04/24 05:45: WBC 10.7, RBC 4.42, Hgb 13.8, Hct 41.4, MCV 93.8, MCH 31.1, MCHC 33.2, RDW 14.0, Plt Count 225, MPV 9.0, Neut % (Auto) 62.0, Lymph % (Auto) 24.2, [place] % (Auto) 11.1 H, Eos % (Auto) 1.9, Baso % (Auto) 0.9, Neut # (Auto) 6.6, Lymph # (Auto) 2.6, [place] # (Auto) 1.2 H, Eos # (Auto) 0.2, Baso # (Auto) 0.1, Sodium 138, Potassium 4.6, Chloride 108 H, Carbon Dioxide 26, Anion Gap 8.6, BUN 38 H, Creatinine 0.90, Estimated Creat Clear 40, Estimated GFR 63, Est GFR ( Amer) 77 D, Glucose 100, Calcium 8.2 L 09/04/24 05:46: POC Glucose 85 09/04/24 09:39: VBG pH 7.42 H, VBG pCO2 38.3, VBG pO2 55.7 H, VBG HCO3 24.3, VBG Total CO2 25.5, VBG O2 Saturation 88.6 H, VBG Base Excess -0.1, VBG Lactic Acid 1.1 I & O for Last 24 hours: Intake & Output 10/09/02/24 09/03/24 09/04/24 23:59 23:59 23:59 23:59 Intake Total 3100.704 / 3140.704 2295.637 / 2335.637 2729.792 / 2729.792 937.563 / 937.563 Output Total 1683 / 1808 2197 / 2197 1640 / 1640 1165 / 1165 Balance 1417.704 / 1332.704 98.637 / 581.612 6325.792 / 1089.792 -227.437 / - 227.437 Weight 104.043 kg 105.34 kg 101.831 kg 106.594 kg Microbiology Reports for the Last 24 Hours: Microbiology 08/30/24 08:15 Blood Blood Culture - Final NO GROWTH AFTER 5 DAYS 08/30/24 07:40 Blood Blood Culture - Final NO GROWTH AFTER 5 DAYS 08/31/24 10:18 Nose MRSA Culture - Final Constitutional Constitutional: no acute distress and obese Comments: Intubated and sedated. *Routine HEENT Exam Head: Present normocephalic Eye: Present EOMI and PERRL ENT: Present mucous membranes moist *Routine Neck Exam Neck: Present supple; Absent lymphadenopathy *Routine Respiratory Exam Respiratory: Present CTA bilaterally *Routine Cardiovascular Exam Cardiovascular: Present RRR *Routine Abdominal Exam Abdominal: Present soft and normoactive bowel sounds; Absent tenderness *Routine Extremities Exam Extremities: Absent cyanosis, clubbing or edema *Routine Skin Exam Skin: Present warm; Absent rash Assessment and Plan *Assessment and plan (1) Glottic edema: Status: Acute Category: Medical Code(s): J38.4 - Edema of larynx (2) Difficult airway for intubation: Status: Acute Category: Medical Code(s): T88.4XXA - Failed or difficult intubation, initial encounter (3) COPD exacerbation: Status: Acute Category: Medical Code(s): J44.1 - Chronic obstructive pulmonary disease with (acute) exacerbation (4) Pneumonia: Status: Acute Category: Medical Code(s): J18.9 - Pneumonia, unspecified organism (5) Acute hypercapnic respiratory failure: Status: Acute Category: Medical Code(s): J96.02 - Acute respiratory failure with hypercapnia (6) Acute respiratory distress: Status: Acute Category: Medical Code(s): R06.03 - Acute respiratory distress (7) Acute hypoxic respiratory failure: Status: Acute Category: Medical Code(s): J96.01 - Acute respiratory failure with hypoxia (8) Acute exacerbation of chronic obstructive airways disease: Status: Acute Category: Medical Code(s): J44.1 - Chronic obstructive pulmonary disease with (acute) exacerbation (9) Exposure to COVID-19 virus: Status: Acute Category: Medical Code(s): Z20.822 - Contact with and (suspected) exposure to COVID-19 Plan Jasmin Goodwin is a 64-year-old female with a medical history significant for COPD who presents with worsening shortness of breath over the last day. By the time I was able to interview the patient, she was already sedated and intubated. Most history was obtained through chart review. Per daughter, patient stated that she was not feeling well last night and that she could not breathe. Daughter states patient has severe COPD . When she arrived to the ED, patient had significant increased work of breathing with shallow respirations. She was given Solu-Medrol, continuous albuterol, and BiPAP initially. Initial ABG pH 7.17 pCO2 84. Repeat ABG after BiPAP revealed worsening pH 7.11 pCO2 121.7. I contacted our electrical equipment tester who came to bedside and performed intubation. It was noticed that she had severe vocal cord and glottic edema, with no concerning subglottic stenosis appreciated. Throughout this course, case was discussed with the ED provider and decision was made to admit patient for acute on chronic hypercapnic respiratory failure secondary to COPD exacerbation. #Acute hypercarbic respiratory failure #COPD exacerbation #Severe vocal cord, glottic edema versus fatty tissue #Community-acquired pneumonia #Left lower lobe atelectasis #Mechanical ventilation ? Patient continues to be stable on mechanical ventilation, sedation. Swelling also seem to have improved on its own, tolerating ET cuffing. ? ET tube is stable and at 18 cm today without need for adjustment. ? Spoke with pulmonology regarding slightly worsening left lower lobe atelectasis, recommending maintaining same tidal volume at 380, reducing rate to 16 after VBG showed pH 7.47. ? Continuing to wean vent settings. FiO2 to 35% today. Respiratory rate reduced to 16, tidal volume 380. PEEP 10. ? Continue propofol, fentanyl. Continue to wean as tolerated. ? CXR revealed right perihilar opacity suggestive of pneumonia. Respiratory panel negative for COVID-19, influenza. ? Ceftriaxone, azithromycin day 6/7 as WBC has only resolved today. ? WBC improved today to 10.7 from 12.4. No fevers, tachycardia. Procalcitonin normal. Will continue to monitor. MRSA screen negative. ? Sputum, blood cultures no growth to date. ? DuoNebs every 4 hours, Pulmicort twice daily. Steroids discontinued. ? IV famotidine for GI ulcer prophylaxis. ? Lovenox for DVT prophylaxis. ? Perales in place, making appropriate urine. ? NG tube in place, continue tube feeds. ? Consider IM epinephrine if there are signs of worsening swelling or anaphylaxis. ? Pulmonology following, appreciate efforts and recommendations. Plan to extubate Thursday. #Intertrigo ? Nystatin as needed. #Obesity ? Complicates all aspects of care. Full code DVT prophylaxis: Lovenox
[2024-09-04 12:45] LABS: POC Glucose,Bedside 95 (70-110)
[2024-09-04] MEDS: MILK OF MAGNESIA 30ML UDC 30 ML PO (13:06)
[2024-09-04] MEDS: FENTANYL CITRATE/PF 1,000 MCG in 0.9 % SODIUM CHLORIDE 80 ML 5 MCG IV (15:05)
--- NOTE | 2024-09-04 16:09 | PC.NURSE ---
PATIENT HAS HAD NO ACUTE CHANGES THUS FAR THIS SHIFT. PATIENT HAS SEEMED VERY COMFORTABLE AND HAS GOTTEN GOOD REST. PATIENT TOLERATING TURNS, AND Q2H ORAL CARE THIS SHIFT. VENT SETTINGS REMAIN THE SAME, HOWEVER BREATH RATE DOWN TO 16 FROM 18. NG TUBE REMAINS IN LEFT NARE, RE-SECURED THIS SHIFT. TOLERATING TUBE FEEDS WELL. ADEQUATE URINE OUTPUT PER GARDINER, LESS GREEN AND MORE YELLOW IN COLOR TODAY. FAMILY HAS VISITED X1 TODAY. PROPOFOL REMAINS AT 40MCG/HR, FENTANYL 50MCG/HR. PATIENT WILL MOVE HER EYES AND FOLLOW SOME COMMANDS THIS MORNING, HOWEVER CONTINUED TO PULL AT TUBING. NO NEEDS OR C/O NOTED, VSS.
[2024-09-04 17:47] LABS: POC Glucose,Bedside 123 (70-110)
[2024-09-04 18:18] LABS: Chol/HDL Ratio 4.3 (1-3.5); Cholesterol 180 mg/dl (140-200); HDL Cholesterol 42 mg/dl (40-60)
[2024-09-04 18:27] LABS: Triglycerides 1279 mg/dl (30-150)
[2024-09-04 18:29] LABS: Direct LDL Cholesterol 91.11 mg/dL (100-129)
[2024-09-04 20:50] LABS: Chloride 108 mmol/L (98-107)
[2024-09-04 20:51] LABS: Albumin Level 3.2 g/dl (3.5-5.0); Potassium 4.7 mmoL/L (3.5-5.1); Sodium 139 mmol/L (136-145)
[2024-09-04 20:53] LABS: Blood Urea Nitrogen 37 mg/dl (7-17); Creatinine Clearance Estimated 40 mL/min (50-200); Estimated Glomerular Filt Rate 56 ml/min (>60); GFR (African American) 68 ML/MIN (>60)
[2024-09-04 20:54] LABS: Alanine Aminotransferase 59 U/L (12-78); Albumin/Globulin Ratio 1.1 (1.1-1.8); Alkaline Phosphatase 119 U/L (38-126); Anion Gap 6.7 mEq/L (5-15); Aspartate Amino Transferase 49 U/L (14-36); Bilirubin,Total 0.5 mg/dl (0.2-1.3); Calcium 8.8 mg/dl (8.4-10.2); Carbon Dioxide 29 mmol/L (22.0-30.0); Globulin 2.8 g/dL (1.3-3.2); Glucose 117 mg/dl (74-100)
[2024-09-04 21:07] LABS: ABG Base Excess 1.8 mmol/L (-2.4-2.3); ABG Oxygen Saturation 98 % (90-100); ABG PCO2 39.1 mmhg (35.0-45.0); ABG PH 7.44 mmol/L (7.35-7.45); ABG PO2 114.3 mmhg (80-100); ABG TCO2 27.2 mmhg (23-27)
[2024-09-04 21:09] LABS: Oxygen 35 %
[2024-09-04] MEDS: PANTOPRAZOLE 40MG VIAL 40 MG IV (21:09)
[2024-09-04] MEDS: FAMOTIDINE 20MG/2ML VIAL 20 MG IV (21:09)
[2024-09-04 21:10] LABS: Allen's Test y; PEEP 10; Source rr; Tidal Volume 380; Vent Rate 16
[2024-09-04] MEDS: LACTULOSE 20GM/30ML UDC 10 GM NG-TUBE (21:10)
[2024-09-04] MEDS: SENNOSIDES 8.6MG/DOCUSATE 50MG TABLET 2 TAB PO (21:11)
--- NOTE | 2024-09-04 21:40 | XR_ITS ---
PROCEDURE INFORMATION: Exam: XR Abdomen Exam date and time: 09/04/2024 9:52 PM Age: 64 years old Clinical indication: Constipation TECHNIQUE: Imaging protocol: Radiologic exam of the abdomen. Views: Frontal supine view of the abdomen. 1 View. COMPARISON: CR XR CHEST PORTABLE 09/04/2024 5:44 AM FINDINGS: Tubes, catheters and devices: Enteric tube in place, tip and side port project over the stomach. Gastrointestinal tract: Moderate gaseous distension of the colon is noted. Intraperitoneal space: No pneumoperitoneum or evidence for obstruction. Bones/joints: Unremarkable. IMPRESSION: Moderate gaseous distension of the colon
[2024-09-05] VITALS (50 sets, daily range): BP systolic 77–132; BP diastolic 44–100; PULSE 56–90; RESP 16–20; TEMP 36.8–37.3; O2SAT 90–100; BMI 47.4
[2024-09-05 00:18] LABS: POC Glucose,Bedside 115 (70-110)
[2024-09-05] MEDS: GLYCERIN ADULT 3GM SUPP 3 GM RC (01:09)
[2024-09-05] MEDS: IPRATROPIUM/ALBUTEROL 3 ML NEB IH ×5 (01:51→18:32)
--- NOTE | 2024-09-05 03:52 | PC.NURSE ---
Unknown last GRV check, so documenting RN checked at this time. <5mL aspirated and returned to patient. No s/sx of intolerance. Tube feeding resumed at current rate of 20mL/hr with 150mL q4h water flush.
--- NOTE | 2024-09-05 04:52 | PC.NURSE ---
Patient has no acute change since taking over care at 0100 this date by documenting RN. Patient remains on ventilator AC mode Vt 380, RR 16, FiO2 35%, PEEP 10 and tolerating well. EtCO2 has been maintaining 40-45. Ett placement is now measuring 18cm at the gum. Left nare gastric tube measuring 65cm with tube feeds infusing per order and tolerating well. Patient has 20g PIV to RAC that is patent and saline locked. She has a 5fr double lumen PICC to LUE, showing 0cm exposed. Adequate urinary output via robles with clear and yellow urine. Plan today is to have patient completed a successful SBT to potentially come off of vent. Her Propofol has been off since 20:00 last night, and we are currently attempting to titrate her Fentanyl gtt to off if patient tolerates well. NAD, VSS. ICU care continues.
[2024-09-05] MEDS: FENTANYL CITRATE/PF 1,000 MCG in 0.9 % SODIUM CHLORIDE 80 ML 6.5 MCG IV (05:38)
--- NOTE | 2024-09-05 06:00 | XR_ITS ---
PROCEDURE INFORMATION: Exam: XR Chest Exam date and time: 09/05/2024 5:36 AM Age: 64 years old Clinical indication: Condition or disease; Other: Pneumonia mechanical ventilation TECHNIQUE: Imaging protocol: Radiologic exam of the chest. Views: Portable semi upright AP chest x-ray, 1 view. COMPARISON: CR XR CHEST PORTABLE 09/04/2024 5:44 AM FINDINGS: Tubes, catheters and devices: ET tube in place in expected position within the trachea. Left arm PICC line in place within the SVC. OG or NG tube extends into the stomach and below the lower edge of the x-ray. Monitor leads project over the chest. Lungs: Low lung volumes with perihilar and left basilar atelectasis versus pneumonia. Pleural spaces: No significant costophrenic angle blunting. No pneumothorax. Heart/Mediastinum: Heart size appears prominent but is likely exaggerated by the portable AP technique. Bones/joints: No acute osseous abnormality. Soft tissues: Large body habitus. IMPRESSION: Low lung volumes with perihilar and left basilar atelectasis versus pneumonia.
[2024-09-05 06:27] LABS: Basophils # 0.2 K/mm3 (0-0.2); Basophils % 1.4 % (0.1-2.0); Eosinophils # 0.5 K/mm3 (0.0-0.4); Hematocrit 43.2 % (37.0-47.0); Hemoglobin 13.5 g/dL (12.2-16.2); Lymphocytes % 16.5 % (10-50); Mean Corpuscular HGB Conc 31.2 g/dL (31.8-35.4); Mean Corpuscular Hemoglobin 29.9 pg (27.0-31.2); Mean Platelet Volume 9.3 fl (7.4-10.4); Monocytes # 1.5 K/mm3 (0.1-1.0); Monocytes % 12.5 % (1.7-9.3); Neutrophils # 8.1 K/mm3 (1.8-7.8); Neutrophils % 65.7 % (37.0-80.0); Platelet Count 216 K/mm3 (142-424); Red Cell Distribution Width 14.1 % (11.5-17.5); White Blood Count 12.4 K/mm3 (4.8-10.8)
[2024-09-05 06:29] LABS: POC Glucose,Bedside 101 (70-110)
[2024-09-05] MEDS: BUDESONIDE 0.5MG/2ML NEB 0.5 MG IH ×2 (06:29→18:32)
[2024-09-05 07:52] LABS: Albumin Level 3.3 g/dl (3.5-5.0); Chloride 110 mmol/L (98-107); Sodium 141 mmol/L (136-145)
[2024-09-05 07:53] LABS: Potassium 4.8 mmoL/L (3.5-5.1)
[2024-09-05 07:55] LABS: Alanine Aminotransferase 60 U/L (12-78); Aspartate Amino Transferase 54 U/L (14-36); Blood Urea Nitrogen 33 mg/dl (7-17); Creatinine Clearance Estimated 40 mL/min (50-200); Estimated Glomerular Filt Rate 56 ml/min (>60); GFR (African American) 68 ML/MIN (>60)
[2024-09-05 07:56] LABS: Alkaline Phosphatase 121 U/L (38-126); Bilirubin,Total 0.6 mg/dl (0.2-1.3); Calcium 8.8 mg/dl (8.4-10.2); Glucose 107 mg/dl (74-100); Total Protein,Serum 6.2 g/dl (6.3-8.2)
[2024-09-05 08:03] LABS: Albumin/Globulin Ratio 1.1 (1.1-1.8); Globulin 2.9 g/dL (1.3-3.2)
[2024-09-05 08:35] LABS: Anion Gap 6.8 mEq/L (5-15); Carbon Dioxide 29 mmol/L (22.0-30.0)
--- NOTE | 2024-09-05 08:54 | PC.NURSE ---
RESP CARE NOTE: Pt cuff deflated to perform cuff leak testing, per Dr Canales telephone order. Inhaled Vt at 365ml, and exhaled Vt at 435ml, with minimal gurgle heard around tube. A repeat leak test performed, Vt inhaled at 369ml, and 500ml exhaled, with a minimal gurgle heard around tube.
[2024-09-05] MEDS: CEFTRIAXONE 1 GM 1 GM in 0.9 % SODIUM CHLORIDE 50 ML IV (09:20)
[2024-09-05] MEDS: AZITHROMYCIN 500 MG in 0.9 % SODIUM CHLORIDE 250 ML 250 MG IV (09:21)
[2024-09-05] MEDS: ENOXAPARIN 40MG/0.4ML SYRINGE 40 MG SQ (09:27)
[2024-09-05] MEDS: MILK OF MAGNESIA 30ML UDC 30 ML PO (09:28)
[2024-09-05] MEDS: SENNOSIDES 8.6MG/DOCUSATE 50MG TABLET 2 TAB PO (09:28)
--- NOTE | 2024-09-05 09:48 | P.PN_ITS ---
Subjective *Date: 09/05/24 *Time: 13:02 Interval history: No acute respiratory vents over the weekend. Stable ventilator settings. Pulmonology Exam Inpatient Vital signs and Labs for Last 24 Hours: Temp Pulse Resp BP Pulse Ox O2 Del Method FiO2 98.3 F 75 16 122/48 L 96 Mechanical Ventilation 35 09/05/24 08:00 09/05/24 09:45 09/05/24 08:00 09/05/24 08:00 09/05/24 08:18 09/05/24 08:18 09/05/24 08:18 Laboratory Results - last 24 hr 09/04/24 09:39: VBG pH 7.42 H, VBG pCO2 38.3, VBG pO2 55.7 H, VBG HCO3 24.3, VBG Total CO2 25.5, VBG O2 Saturation 88.6 H, VBG Base Excess -0.1, VBG Lactic Acid 1.1 09/04/24 12:36: POC Glucose 95 09/04/24 17:40: POC Glucose 123 H, Triglycerides 1279 H, Cholesterol 180, LDL Cholesterol Direct 91.11 L, HDL Cholesterol 42, Cholesterol/HDL Ratio 4.3 H 09/04/24 19:51: Specimen Source rr, O2 % 35, ABG pH 7.44, ABG pCO2 39.1, ABG pO2 114.3 H, ABG HCO3 26.0, ABG Total CO2 27.2 H, ABG O2 Saturation 98, ABG Base Excess 1.8, Oliverio Test y, Vent Rate 16, Tidal Volume 380, PEEP 10 09/04/24 20:35: Sodium 139, Potassium 4.7, Chloride 108 H, Carbon Dioxide 29, Anion Gap 6.7, BUN 37 H, Creatinine 1.00, Estimated Creat Clear 40, Estimated GFR 56 L, Est GFR ( Amer) 68, Glucose 117 H, Calcium 8.8, Total Bilirubin 0.5, AST 49 H, ALT 59, Alkaline Phosphatase 119, Total Protein 6.0 L, Albumin 3.2 L, Globulin 2.8, Albumin/Globulin Ratio 1.1 09/05/24 00:11: POC Glucose 115 H 09/05/24 05:21: WBC 12.4 H, RBC 4.50, Hgb 13.5, Hct 43.2, MCV 96.0, MCH 29.9, MCHC 31.2 L, RDW 14.1, Plt Count 216, MPV 9.3, Neut % (Auto) 65.7, Lymph % ( Auto) 16.5, [place] % (Auto) 12.5 H, Eos % (Auto) 4.0, Baso % (Auto) 1.4, Neut # (Auto) 8.1 H, Lymph # (Auto) 2.0, [place] # (Auto) 1.5 H, Eos # (Auto) 0.5 H, Baso # (Auto) 0.2, Sodium 141, Potassium 4.8, Chloride 110 H, Carbon Dioxide 29, Anion Gap 6.8, BUN 33 H, Creatinine 1.00, Estimated Creat Clear 40, Estimated GFR 56 L, Est GFR ( Amer) 68, Glucose 107 H, Calcium 8.8, Total Bilirubin 0.6, AST 54 H, ALT 60, Alkaline Phosphatase 121, Total Protein 6.2 L, Albumin 3.3 L, Globulin 2.9, Albumin/Globulin Ratio 1.1 09/05/24 05:35: POC Glucose 101 Temp Pulse Resp BP Pulse Ox O2 Del Method FiO2 98.6 F 98 H 20 109/90 L 98 BiPAP 80 08/30/24 10:21 08/30/24 10:30 08/30/24 10:30 08/30/24 10:30 08/30/24 10:30 08/30/24 10:30 08/30/24 08:00 Laboratory Results - last 24 hr 08/30/24 07:07: WBC 7.9, RBC 5.01, Hgb 15.1, Hct 49.3 H, MCV 98.4, MCH 30.1, MCHC 30.6 L, RDW 14.2, Plt Count 270, MPV 8.4, Neut % (Auto) 75.1, Lymph % (Auto) 17.9, [place] % (Auto) 5.9, Eos % (Auto) 0.4, Baso % (Auto) 0.7, Neut # (Auto) 6.0, Lymph # (Auto) 1.4, [place] # (Auto) 0.5, Eos # (Auto) 0.0, Baso # (Auto) 0.1, Sodium 136, Potassium 5.2 H, Chloride 96 L, Carbon Dioxide 38 H, Anion Gap 7.2, BUN 15, Creatinine 0.90, Estimated Creat Clear 42, Estimated GFR 63, Est GFR ( Amer) 77, Glucose 154 H, Calcium 9.0, Total Bilirubin 0.4, AST 98 H, ALT 100 H, Alkaline Phosphatase 192 H, Troponin I 0.02, NT-Pro-B Natriuret Pep 2710 H, Total Protein 7.9, Albumin 4.3, Globulin 3.6 H, Albumin/Globulin Ratio 1.2, HIV 1&2 Antibody Rapid Nonreactive 08/30/24 07:08: Specimen Source Left radial, O2 % 100%, ABG pH 7.17 L*, ABG pCO2 84.0 H, ABG pO2 83.6, ABG HCO3 30.1 H, ABG Total CO2 32.7 H, ABG O2 Saturation 95, ABG Base Excess 1.6, Oliverio Test Acceptable 08/30/24 08:21: SARS-CoV-2 (PCR) Not detected, Influenza A Untype (PCR) Not detected, Influenza Type B (PCR) Not detected 08/30/24 09:16: VBG pH 7.12 L, VBG pCO2 104.6 H, VBG pO2 95.3 H, VBG HCO3 33.5 H , VBG Total CO2 36.7 H, VBG O2 Saturation 96.1 H, VBG Base Excess 4.2 H, VBG Lactic Acid 0.9 08/30/24 10:00: Troponin I 0.02 08/30/24 10:39: Specimen Source l radial, O2 % 70, ABG pH 7.11 L*, ABG pCO2 121.7 H, ABG pO2 191.2 H, ABG HCO3 37.8 H, ABG Total CO2 41.5 H, ABG O2 Saturation 99, ABG Base Excess 8.3 H, Oliverio Test aceptable, ABG Lactate 0.9, Vent Rate 24, Tidal Volume 30/12 I & O for Labs for Last 24 Hours: Intake & Output 09/02/24 09/03/24 09/04/24 09/05/24 23:59 23:59 23:59 23:59 Intake Total 2295.637 / 2335.637 2729.792 / 2729.792 2237.146 / 2407.146 557.383 / 557.383 Output Total 2197 / 2197 1640 / 1640 2019 / 2049 665 / 665 Balance 98.637 / 814.623 6106.792 / 1089.792 217.146 / 357.146 -107.617 / - 107.617 Weight 232 lb 3.759 oz 224 lb 8 oz 235 lb 234 lb 12.677 oz Intake & Output 08/27/24 08/28/24 08/29/24 08/30/24 23:59 23:59 23:59 23:59 Intake Total 0.850 / 0.850 Balance 0.850 / 0.850 Weight 250 lb Microbiology Reports for the Last 24 Hours: Microbiology 08/30/24 08:15 Blood Blood Culture - Final NO GROWTH AFTER 5 DAYS 08/30/24 07:40 Blood Blood Culture - Final NO GROWTH AFTER 5 DAYS Constitutional: Present severe distress Comment:: Intubated and Sedated Head: Present normocephalic and atraumatic Neck: Present normal inspection and trachea midline Respiratory: Present patient mechanically ventilated, respiratory distress and rhonchi; Absent prolonged expiratory phase or wheezes Cardiac: Present S1/S2 and Tachycardia GI: Present soft and distention; Absent tenderness Comments:: Abdominal scars noted Skin: Present intact; Absent cyanosis Neuro: Absent alert, awake or oriented x 3 Comment:: Intubated and sedated Extremities: Present normal inspection; Absent clubbing or cyanosis Psychiatric: Present unable to assess Assessment and Plan *Assessment and plan (1) Acute hypercapnic respiratory failure: Status: Acute Category: Medical Code(s): J96.02 - Acute respiratory failure with hypercapnia (2) Pneumonia: Status: Acute Category: Medical Code(s): J18.9 - Pneumonia, unspecified organism (3) COPD exacerbation: Status: Acute Category: Medical Code(s): J44.1 - Chronic obstructive pulmonary disease with (acute) exacerbation (4) Difficult airway for intubation: Status: Acute Category: Medical Code(s): T88.4XXA - Failed or difficult intubation, initial encounter (5) Glottic edema: Status: Acute Category: Medical Code(s): J38.4 - Edema of larynx Plan Patient altered. Much of the history is obtained from chart review. Ms. Goodwin is a 64-year-old female greater than [id number] smoking history, severe COPD on triple inhaler therapy presented to the ER with worsening respiratory's needing noninvasive ventilator therapy and pulmonary was called for further evaluation and management. Difficulty ventilating this patient despite changing her settings and BiPAP with worsening hypercarbic respiratory failure eventually needing intubation and mechanical ventilatory support. Patient is a very difficult airway. Severe vocal cord on glottic edema noted. No concerning subglottic stenosis appreciated. Afebrile. o evidence of leukocytosis. Chest x-ray upon admission questionable right lower lobe infiltrate. Echo EF at 60%. RV normal size and normal systolic function. Impaired LV relaxation. No acute respiratory vents the weekend. Continue intermittent formalin settings. Not able to pass SBT secondary to low RR and low tidal volumes. ET tube retracted to vocal cords today and trachea was evaluated, no evidence of tracheal stenosis appreciated. ET tube was advanced to the nose to look around the airway for edema patient consistently noted to have significant airway edema. Given her inability to pass SBT's and significant airway edema at this point of time in the setting of a very difficult airway it would be unsafe to extubate the patient at this point of time. Recommend ENT consult for tracheostomy. Interval update: No acute respiratory events. Status post bronchoscopy, no evidence of tracheal stenosis appreciated. Continue to have significant airway, recommend ENT consult for tracheostomy. Personal biopsy Plan: Continue Analgo sedation with fentanyl. Light sedation. Propofol was discontinued secondary to triglyceridemia. Not concerning for infusion syndrome, normal lactic acid. Patient comfortable with fentanyl only. Will continue fentanyl infusion with as needed Versed Continue mechanical ventilatory support, PEEP of 10 FiO2 of 35% tidal volume of 380 and a rate of 18. VBG reviewed, no evidence of hypercarbic respiratory failure. Will discontinue ceftriaxone azithromycin. Completed 5-day. Slight worsening leukocytosis. Stable oxygen requirements. Chest x-ray concerning right lower lobe infiltrate/atelectasis. Will monitor. DuoNebs every 4 hours along with Pulmicort Q12 scheduled. -Continue tube feeds. - Continue mechanical ventilatory support - Continue AnalgoSedation with Propofol and Fentanyl with CPOT gal less than or euqal to 2 and RASS goal of to 2 (No need for deep sedation) - VAP bundle Recommend elevate head of the bed at 30 to 45 degrees Recommend oral care with chlorhexidne Recommend GI ulcer prophylaxis - Famotidine 20mg IV BID Recommend chemical DVT prophylaxis Total critical care time spent on this patient is 35 minutes managing acute hypoxic respiratory failure needing mechanical ventilation. This time spent include reviewing test results including interpreting chest x-rays, labs and optimizing the ventilator settings,formulating plan of care, discussing the plan of care with the team and the nursing staff.
[2024-09-05 10:40] LABS: Lactate Venous 0.9 mmol/L (0.4-2.0); VBG HCO3 24.8 mmol/L (23-30); VBG Oxygen Saturation 98.2 % (50-70); VBG PCO2 40.5 mmol/L (35-51); VBG PO2 125.9 mmol/L (28-40)
[2024-09-05] MEDS: LACTATED RINGERS 1000ML 500 ML 999 ML IV (11:00)
[2024-09-05] MEDS: MIDAZOLAM 2MG/2ML VIAL 6 MG IV (11:00)
[2024-09-05] MEDS: LIDOCAINE 1% 20ML MDV 20 ML IJ (11:00)
[2024-09-05] MEDS: FENTANYL 100MCG/2ML VIAL 100 MCG IV (11:00)
[2024-09-05 11:56] LABS: POC Glucose,Bedside 105 (70-110)
--- NOTE | 2024-09-05 13:57 | PC.WOUNDNOTE ---
skin assessment start of shift
--- NOTE | 2024-09-05 15:10 | DIET.NUTRFU ---
Spoke to nursing SBT unsuccessful, according to Bronch she will need trach and plans to transfer for that. Nursing plans to restart TF slowly, had high residual of 100ml previously. Patient has also not had BM, with multiple medications provided. Propofol discontinued secondary to increase in lipids. Will followup with nursing based on TF tolerance may increase goal rate with propofol discontinued.
--- NOTE | 2024-09-05 16:39 | EXP.DC.SUM ---
General Admission date:: 08/30/24 HPI HPI HPI: Jasmin Goodwin is a 64-year-old female with a medical history significant for COPD who presents with worsening shortness of breath over the last day. By the time I was able to interview the patient, she was already sedated and intubated. Most history was obtained through chart review. Per daughter, patient stated that she was not feeling well last night and that she could not breathe. Daughter states patient has severe COPD . When she arrived to the ED, patient had significant increased work of breathing with shallow respirations. She was given Solu-Medrol, continuous albuterol, and BiPAP initially. Initial ABG pH 7.17 pCO2 84. Repeat ABG after BiPAP revealed worsening pH 7.11 pCO2 121.7. I contacted our manhole builder who came to bedside and performed intubation. It was noticed that she had severe vocal cord and glottic edema, with no concerning subglottic stenosis appreciated. Throughout this course, case was discussed with the ED provider and decision was made to admit patient for acute on chronic hypercapnic respiratory failure secondary to COPD exacerbation. Hospital Course Hospital Course Hospital Course: Jasmin Goodwin is a 64-year-old female with a medical history significant for COPD who presents with worsening shortness of breath over the last day. By the time I was able to interview the patient, she was already sedated and intubated. Most history was obtained through chart review. Per daughter, patient stated that she was not feeling well last night and that she could not breathe. Daughter states patient has severe COPD . When she arrived to the ED, patient had significant increased work of breathing with shallow respirations. She was given Solu-Medrol, continuous albuterol, and BiPAP initially. Initial ABG pH 7.17 pCO2 84. Repeat ABG after BiPAP revealed worsening pH 7.11 pCO2 121.7. I contacted our manhole builder who came to bedside and performed intubation. It was noticed that she had severe vocal cord and glottic edema, with no concerning subglottic stenosis appreciated. Throughout this course, case was discussed with the ED provider and decision was made to admit patient for acute on chronic hypercapnic respiratory failure secondary to COPD exacerbation. #Acute hypercarbic respiratory failure #COPD exacerbation #Severe vocal cord, glottic edema versus excess airway tissue #Community-acquired pneumonia #Left lower lobe atelectasis #Mechanical ventilation - Upon mechanical ventilation and sedation, patient remained stable throughout hospital course without significant events. - Ventilation settings were no greater than FiO2 to 50%, respiratory rate 18, tidal volume 420, PEEP 10. - Initially sedated on propofol and fentanyl, but propofol discontinued and Versed started after triglycerides 1279. LFTs stable. No signs of PATRICIA. - Initially patient did have mild periorbital edema which began to self-resolve. As such, after discussing with our road crossing guard decision was made not administer epinephrine for possible angioedema as it was self-resolving. - Of note, ET tube require repositioning from 22cm to 18 cm suggesting decrease in airway edema over the hospital course. - CAP was treated with ceftriaxone and azithromycin for 6 out of 7 days before transfer to . - COPD exacerbation was treated with 5 days of solumedrol. DuoNebs every 4 hours, Pulmicort twice daily. - Daily SBTs were attempted, however patient either became agitated, or had poor respiratory rate and tidal volumes. - Therefore, a bedside bronchoscopy was attempted 09/05/24 which to continued to reveal severe airway edema vs excess airway tissue. Given these findings and patient's inability to pass SBT, patient will benefit from tracheostomy evaluation. Unfortunately, we do not have inpatient ENT at this facility. Reached out to transfer center who graciously offered to accept the patient. ? CXR revealed right perihilar opacity suggestive of pneumonia. Respiratory panel negative for COVID-19, influenza. Procalcitonin remained normal. MRSA screen negative. ? Sputum, blood cultures no growth to date. ? IV famotidine for GI ulcer prophylaxis. ? Lovenox for DVT prophylaxis. ? Perales in place, making appropriate urine. ? NG tube in place, continue tube feeds with Pulmocare, rate decreased to 20 after high triglycerides. - Kidney function remained stable, creatining 1.0, BUN 33. #Intertrigo ? Nystatin as needed. #Obesity ? Complicated all aspects of care. Exam Data for Last 24 hours Vital signs and Labs for Last 24 Hours: Temp Pulse Resp BP Pulse Ox O2 Del Method FiO2 98.3 F 69 16 104/62 L 99 Mechanical Ventilation 35 09/05/24 08:00 09/05/24 15:00 09/05/24 15:00 09/05/24 15:00 09/05/24 15:00 09/05/24 15:00 09/05/24 15:00 Laboratory Results - last 24 hr 09/04/24 17:40: POC Glucose 123 H, Triglycerides 1279 H, Cholesterol 180, LDL Cholesterol Direct 91.11 L, HDL Cholesterol 42, Cholesterol/HDL Ratio 4.3 H 09/04/24 19:51: Specimen Source rr, O2 % 35, ABG pH 7.44, ABG pCO2 39.1, ABG pO2 114.3 H, ABG HCO3 26.0, ABG Total CO2 27.2 H, ABG O2 Saturation 98, ABG Base Excess 1.8, Oliverio Test y, Vent Rate 16, Tidal Volume 380, PEEP 10 09/04/24 20:35: Sodium 139, Potassium 4.7, Chloride 108 H, Carbon Dioxide 29, Anion Gap 6.7, BUN 37 H, Creatinine 1.00, Estimated Creat Clear 40, Estimated GFR 56 L, Est GFR ( Amer) 68, Glucose 117 H, Calcium 8.8, Total Bilirubin 0.5, AST 49 H, ALT 59, Alkaline Phosphatase 119, Total Protein 6.0 L, Albumin 3.2 L, Globulin 2.8, Albumin/Globulin Ratio 1.1 09/05/24 00:11: POC Glucose 115 H 09/05/24 05:21: WBC 12.4 H, RBC 4.50, Hgb 13.5, Hct 43.2, MCV 96.0, MCH 29.9, MCHC 31.2 L, RDW 14.1, Plt Count 216, MPV 9.3, Neut % (Auto) 65.7, Lymph % (Auto) 16.5, [place] % (Auto) 12.5 H, Eos % (Auto) 4.0, Baso % (Auto) 1.4, Neut # (Auto) 8.1 H, Lymph # (Auto) 2.0, [place] # (Auto) 1.5 H, Eos # (Auto) 0.5 H, Baso # (Auto) 0.2, Sodium 141, Potassium 4.8, Chloride 110 H, Carbon Dioxide 29, Anion Gap 6.8, BUN 33 H, Creatinine 1.00, Estimated Creat Clear 40, Estimated GFR 56 L, Est GFR ( Amer) 68, Glucose 107 H, Calcium 8.8, Total Bilirubin 0.6, AST 54 H, ALT 60, Alkaline Phosphatase 121, Total Protein 6.2 L, Albumin 3.3 L, Globulin 2.9, Albumin/Globulin Ratio 1.1 09/05/24 05:35: POC Glucose 101 09/05/24 10:30: VBG pH 7.40, VBG pCO2 40.5, VBG pO2 125.9 H, VBG HCO3 24.8, VBG Total CO2 26.0, VBG O2 Saturation 98.2 H, VBG Base Excess 0.0, VBG Lactic Acid 0.9 09/05/24 11:48: POC Glucose 105 I & O for Last 24 hours: Intake & Output 09/02/24 09/03/24 09/04/24 09/05/24 23:59 23:59 23:59 23:59 Intake Total 2295.637 / 2335.637 2729.792 / 2729.792 2237.146 / 2407.146 1713.729 / 1713.729 Output Total 2197 / 2197 1640 / 1640 2019 / 2049 1435 / 1435 Balance 98.637 / 762.936 6885.792 / 1089.792 217.146 / 357.146 278.729 / 278.729 Weight 105.34 kg 101.831 kg 106.594 kg 106.5 kg Constitutional Constitutional: no acute distress and obese Comments: Intubated and sedated. *Routine HEENT Exam Head: Present normocephalic Eye: Present EOMI and PERRL ENT: Present mucous membranes moist *Routine Neck Exam Neck: Present supple; Absent lymphadenopathy *Routine Respiratory Exam Respiratory: Present CTA bilaterally *Routine Cardiovascular Exam Cardiovascular: Present RRR *Routine Abdominal Exam Abdominal: Present soft and normoactive bowel sounds; Absent tenderness *Routine Extremities Exam Extremities: Absent cyanosis, clubbing or edema *Routine Skin Exam Skin: Present warm; Absent rash Results Data Completed and Pending Labs on day of discharge: Labs from last 24 hours 09/05/24 09/05/24 09/05/24 11:48 10:30 05:35 WBC RBC Hgb Hct MCV MCH MCHC RDW Plt Count MPV Neut % (Auto) Lymph % (Auto) [place] % (Auto) Eos % (Auto) Baso % (Auto) Neut # (Auto) Lymph # (Auto) M[place]orm[place] # (Auto) Eos # (Auto) Baso # (Auto) Specimen Source O2 % ABG pH ABG pCO2 ABG pO2 ABG HCO3 ABG Total CO2 ABG O2 Saturation ABG Base Excess Oliverio Test VBG pH 7.40 VBG pCO2 40.5 VBG pO2 125.9 H VBG HCO3 24.8 VBG Total CO2 26.0 VBG O2 Saturation 98.2 H VBG Base Excess 0.0 VBG Lactic Acid 0.9 Vent Rate Tidal Volume PEEP Sodium Potassium Chloride Carbon Dioxide Anion Gap BUN Creatinine Estimated Creat Clear Estimated GFR Est GFR ( Amer) Glucose POC Glucose 105 101 Calcium Total Bilirubin AST ALT Alkaline Phosphatase Total Protein Albumin Globulin Albumin/Globulin Ratio Triglycerides Cholesterol LDL Cholesterol Direct HDL Cholesterol Cholesterol/HDL Ratio 09/05/24 09/05/24 09/04/24 05:21 00:11 20:35 WBC 12.4 H RBC 4.50 Hgb 13.5 Hct 43.2 MCV 96.0 MCH 29.9 MCHC 31.2 L RDW 14.1 Plt Count 216 MPV 9.3 Neut % (Auto) 65.7 Lymph % (Auto) 16.5 M[place]ormick % (Auto) 12.5 H Eos % (Auto) 4.0 Baso % (Auto) 1.4 Neut # (Auto) 8.1 H Lymph # (Auto) 2.0 Mccormick # (Auto) 1.5 H Eos # (Auto) 0.5 H Baso # (Auto) 0.2 Specimen Source O2 % ABG pH ABG pCO2 ABG pO2 ABG HCO3 ABG Total CO2 ABG O2 Saturation ABG Base Excess Oliverio Test VBG pH VBG pCO2 VBG pO2 VBG HCO3 VBG Total CO2 VBG O2 Saturation VBG Base Excess VBG Lactic Acid Vent Rate Tidal Volume PEEP Sodium 141 139 Potassium 4.8 4.7 Chloride 110 H 108 H Carbon Dioxide 29 29 Anion Gap 6.8 6.7 BUN 33 H 37 H Creatinine 1.00 1.00 Estimated Creat Clear 40 40 Estimated GFR 56 L 56 L Est GFR ( Amer) 68 68 Glucose 107 H 117 H POC Glucose 115 H Calcium 8.8 8.8 Total Bilirubin 0.6 0.5 AST 54 H 49 H ALT 60 59 Alkaline Phosphatase 121 119 Total Protein 6.2 L 6.0 L Albumin 3.3 L 3.2 L Globulin 2.9 2.8 Albumin/Globulin Ratio 1.1 1.1 Triglycerides Cholesterol LDL Cholesterol Direct HDL Cholesterol Cholesterol/HDL Ratio 09/04/24 09/04/24 19:51 17:40 WBC RBC Hgb Hct MCV MCH MCHC RDW Plt Count MPV Neut % (Auto) Lymph % (Auto) [place] % (Auto) Eos % (Auto) Baso % (Auto) Neut # (Auto) Lymph # (Auto) Mccormick # (Auto) Eos # (Auto) Baso # (Auto) Specimen Source rr O2 % 35 ABG pH 7.44 ABG pCO2 39.1 ABG pO2 114.3 H ABG HCO3 26.0 ABG Total CO2 27.2 H ABG O2 Saturation 98 ABG Base Excess 1.8 Oliverio Test y VBG pH VBG pCO2 VBG pO2 VBG HCO3 VBG Total CO2 VBG O2 Saturation VBG Base Excess VBG Lactic Acid Vent Rate 16 Tidal Volume 380 PEEP 10 Sodium Potassium Chloride Carbon Dioxide Anion Gap BUN Creatinine Estimated Creat Clear Estimated GFR Est GFR ( Amer) Glucose POC Glucose 123 H Calcium Total Bilirubin AST ALT Alkaline Phosphatase Total Protein Albumin Globulin Albumin/Globulin Ratio Triglycerides 1279 H Cholesterol 180 LDL Cholesterol Direct 91.11 L HDL Cholesterol 42 Cholesterol/HDL Ratio 4.3 H DS: Diagnosis Discharge Diagnosis (1) Acute hypercapnic respiratory failure: Status: Acute Code(s): J96.02 - Acute respiratory failure with hypercapnia (2) Pneumonia: Status: Acute Code(s): J18.9 - Pneumonia, unspecified organism (3) COPD exacerbation: Status: Acute Code(s): J44.1 - Chronic obstructive pulmonary disease with (acute) exacerbation (4) Difficult airway for intubation: Status: Acute Code(s): T88.4XXA - Failed or difficult intubation, initial encounter (5) Glottic edema: Status: Acute Code(s): J38.4 - Edema of larynx Meds Home Medications and Allergies Home Medications ?Medication ?Instructions ?Recorded ?Confirmed ?Type albuterol sulfate 90 mcg/actuation 1 inh inhalation Q4HP PRN 08/30/24 08/30/24 History aerosol inhaler shortness of breath or wheezing ipratropium 0.5 mg-albuterol 3 mg 3 ml inhalation Q6H 08/30/24 08/30/24 History (2.5 mg base)/3 mL nebulization soln New Prescriptions to Start Prescriptions: Allergies Allergy/AdvReac Type Severity Reaction Status Date / Time No Known Allergies Allergy Verified 09/17/21 14:23 Discharge Plan Disposition Patient Disposition: er Short-Term [facility] Discharge Order Discharge Orders: Discharge Order (Routine); Ordered 09/05/24 Ordered By: Prudencio Sandhu Follow up Plan Prescriptions/Medication Reconciliation: Continued ipratropium-albuterol 0.5 mg-3 mg(2.5 mg base)/3 mL solution for nebulization 3 ml INHALATION Q6H albuterol sulfate 90 mcg/actuation HFA aerosol inhaler 1 inh INHALATION Q4HP PRN (Reason: shortness of breath or wheezing) Problem Reconciliation Problems Reviewed?: Yes Patient Discharge Instructions Stand Alone Forms: Transfer Record Patient Instructions: DI for Chronic Obstructive Pulmonary Disease, Ventilator-Associated Pneumonia, DI for Respiratory Failure, Catheter-Associated Urinary Tract Infection Print Language: Jamaican Providers Primary Care Provider: Marilu Mancia Admit Provider: Prudencio Sandhu Attending Provider: Prudencio Sandhu
[2024-09-05] MEDS: MIDAZOLAM HCL/PF 50 MG in 0.9 % SODIUM CHLORIDE 40 ML IV (17:00)
[2024-09-05 18:15] LABS: POC Glucose,Bedside 90 (70-110)
--- NOTE | 2024-09-05 18:25 | PC.NURSE ---
Addendum entered by Marielle Cornejo RN 09/05/24 18:50: 1849 called and spoke with pt daughter Monica. notified daughter that pt has bed at [facility] and is awaiting transport. Original Note: [id number] received call from Transfer center requesting information on pt. pt to go to [facility] ICU room [phone] attempted to call report, left on hold 1717 attempted to call report, call disconnected during transfer 1721 report called to [facility] at [facility]. room number changed to [phone] called and spoke with Prudencio [facility]urto [facility]. notified staff that pt was ready for transport when transport is available.
--- NOTE | 2024-09-05 19:41 | PC.NURSE ---
Ground transport ETA is unknown at this time per local EMS. Contacted [employer] [facility] who will respond from [place] with eta 32 minutes.
== END 2024-09-05 20:55 | disposition short-term general hospital (02) | DRG 207 ==
LOC: ER 08:10 → 2ND 08:33
PROVIDERS: Internal Medicine Pulmonary Disease; Admitting Provider Student in an Organized Health Care Education/Training Program; Emergency Provider Student in an Organized Health Care Education/Training Program; PCP Family Medicine; Visit Provider Student in an Organized Health Care Education/Training Program
PROC: 0BJ08ZZ Inspection of Tracheobronchial Tree, Via Natural or Artificial Opening Endoscopic (ICD-10-PCS; CPT 31622; principal; 2024-08-30 11:15)
DX: J96.02 Acute respiratory failure with hypercapnia (principal); J18.9 Pneumonia, unspecified organism; J44.1 Chronic obstructive pulmonary disease with (acute) exacerbation; Z68.42 Body mass index [BMI] 45.0-49.9, adult; J44.0 Chronic obstructive pulmonary disease with (acute) lower respiratory infection; J98.11 Atelectasis; E66.9 Obesity, unspecified; L30.4 Erythema intertrigo; J38.4 Edema of larynx
CPT/HCPCS: 36415; 36569; 71045; 74018; 80048; 80053; 80061; 81001; 82803; 82962; 83605; 83735; 83880; 84145; 84484; 85025; 86803; 87040; 87070; 87081; 87086; 87205; 87389; 87636; 88305; 93005; 93306; 94002; 94003; 94640; 94761; 99291; C1751; J0330; J0456; J0696; J1650; J1940; J2250; J2704; J2919; J3010; J3475; J7050; J7120; J7613; J7620; S0028